=== PATIENT | male | born 1965 | race Caucasian/White ===

== ENCOUNTER 2019-11-22 10:52 | Observation (INO) | payer BC, SELFPAY ==
[2019-11-22] VITALS (56 sets, daily range): BP systolic 121–142; BP diastolic 59–83; PULSE 78–108; RESP 12–41; TEMP 37–37.3; O2SAT 90–100; BMI 40.7
--- NOTE | 2019-11-22 11:04 | ED_ITS ---
Entered by Sweetie Muller, acting as scribe for Magno Rosario DO Nov 22, 2019 10:52 HPI - Chest Pain General: Chief Complaint: Chest Pain Stated Complaint: Chest pain Time Seen by Provider: 11/22/19 11:04 Source: patient Mode of arrival: ambulatory Limitations: no limitations History of Present Illness: HPI narrative: 54 yo Male presents to ED with complaint of chest pain. Pt states the last time he had stents placed was 2 years ago. Pt states that he has had a cough for about a month. Pt states that he has had swelling in his legs and feet. MD complaint: chest pain Pertinent past history: prior [place] Onset (ago): day(s) (yesterday) Timing of current episode: constant and still present Prior episodes: Yes Onset: during rest Pain location: left chest Pain radiation: left arm Pain scale (0-10): 8 Quality: tightness and other (stabbing) Relieving factors: nitroglycerin Exacerbating factors: other (cough) Associated symptoms: Reports dyspnea and nausea; Deny abdominal pain, diaphoresis, fever(s), palpitations or vomiting Risk Factors: Coronary artery disease risk factors: smoking history Review of Systems General: Reports: 10 or more systems reviewed and unremarkable except in HPI and below Const: Denies: fever, chills, body aches or diaphoresis Eyes: Denies: change in vision, blurry vision or blind spots ENMT: Denies: throat pain, enlarged tonsils, painful swallowing, hoarseness or mouth pain Card: Reports: chest pain, swelling of feet/ankles, shortness of breath on exertion and shortness of breath when lying down; Denies: palpitations or irregular heart rhythm Resp: Reports: shortness of breath and non-productive cough; Denies: productive cough GI: Reports: nausea; Denies: abdominal pain or vomiting : Denies: flank pain, difficulty urinating, painful urination, urinary frequency or urinary urgency Musc: Denies: neck pain, back pain, extremity pain or extremity swelling Skin/Breast: Denies: rash, itching or redness Neuro: Denies: headache, numbness in extremities or weakness in extremities Endo: Denies: excessive urination, excessive thirst or tired all the time Mateusz/Lymph: Denies: easy bruising or easy bleeding PFSH ED PFSH: Statuses (acute, chronic, etc) shown below reflect problem list status as previously entered and may not be historically accurate Medical History Angina pectoris (Acute) CAD (coronary artery disease) (Acute) CHF (congestive heart failure) (Acute) Hiatal hernia (Acute) History of left heart catheterization (Acute) HTN (hypertension) (Acute) Myocardial infarction (Acute) Surgical History History of heart artery stent (Acute) Social History Smoking and tobacco status: current every day smoker Physical Exam Const: COMMON NORMALS: no apparent distress, average body habitus, oriented x3 , no limitations, healthy appearing, alert and well nourished HENMT: COMMON NORMALS: normocephalic, head/scalp atraumatic, hearing grossly normal bilaterally, external ears normal, EAC's normal, TM's normal bilaterally, external nose normal, nasal mucous membranes and turbinates normal, moist oral mucous membranes, oropharynx normal, dentition normal and gingiva normal HEAD & SCALP: normocephalic and atraumatic NOSE: external nose normal and nasal mucous membranes and turbinates normal EXTERNAL EAR: Yes external ears normal EXTERNAL AUDITORY CANAL: EAC's normal TYMPANIC MEMBRANE: TM's normal bilaterally Eye: COMMON NORMALS: PERRL, EOMs intact bilaterally, conjunctivae normal, no scleral icterus, no papilledema, normal visual castaneda by confrontation and fundi normal bilaterally CONJUNCTIVA: Yes conjunctivae normal PUPIL: Yes PERRL DIRECT OPHTHALMOSCOPY: Yes no papilledema and Yes fundi normal bilaterally Neck/C-Spine: COMMON NORMALS: full ROM, no lymphadenopathy, supple, no meningeal signs, no JVD, thyroid normal and no carotid bruits THYROID: thyroid normal Chest: COMMONS NORMALS: inspection of chest normal and palpation of chest normal Resp: COMMON NORMALS: normal respiratory effort, no retractions, no use of accessory muscles, clear to auscultation bilaterally and percussion normal AUSCULTATION: clear to auscultation bilaterally PERCUSSION: percussion normal Cardio: COMMON NORMALS: no JVD, regular rate, regular rhythm, S1 normal heart sound, S2 normal heart sound, no gallops, no clicks, no murmurs, no rub and peripheral pulses 2+ throughout RATE: regular rate RHYTHM: regular rhythm HEART SOUNDS: S1 normal and S2 normal PERIPHERAL PULSES: pulses 2+ throughout GI: COMMON NORMALS: normal to inspection, nondistended, normoactive bowel sounds, soft to palpation, non-tender, no hepatosplenomegaly, no masses and no bruits PALPATION: Yes soft and Yes no hepatosplenomegaly : COMMON NORMALS: Yes no CVA tenderness BLADDER/KIDNEY EXAM: Yes no CVA tenderness Back/Pelvis: COMMON NORMALS: no CVA tenderness, thoracic and lumbar spine normal to inspection, no thoracic nor lumbar tenderness, thoraco-lumbar ROM normal and straight leg raise negative bilaterally Extremity: COMMON NORMALS: normal to inspection, full ROM, normal capillary refill, no joint enlargement, no clubbing, cyanosis or edema, no calf tenderness and no pedal edema Neuro: COMMON NORMALS: oriented x3 SENSORIUM/ORIENTATION: Yes alert MENINGEAL SIGNS: Yes no meningeal signs Skin: COMMON NORMALS: no rashes or lesions noted, no wounds, skin turgor normal, no jaundice, no petechiae and no mottling GENERAL SKIN EXAM: no rashes or lesions noted and turgor normal Course Vital Signs: Vital signs: Vital Signs Pulse Rate 79 11/22/19 13:40 Respiratory Rate 23 H 11/22/19 13:40 Blood Pressure 132/83 11/22/19 13:40 Pulse Oximetry 94 11/22/19 13:40 MDM - Chest Pain Lab Data: Labs: Lab Results 11/22/19 11/22/19 11/22/19 Range/Units 11:30 11:30 11:30 WBC 9.5 (4.0-10.0) 10^3/ uL RBC 4.81 (4.1-5.3) 10^6/u L Hgb 13.2 (11.7-16.6) g/dL Hct 40.7 L (42.0-52.0) % MCV 84.6 (80-94) fL MCH 27.4 L (28.0-34.0) pg MCHC 32.4 (30.0-36.0) g/dL RDW 13.4 (12.1-15.1) % Plt Count 240 (130-400) 10^3/c mm MPV 10.3 (7.4-10.4) fL Neut % (Auto) 70.8 % Lymph % (Auto) 17.9 % [place] % (Auto) 8.2 % Eos % (Auto) 2.4 % Baso % (Auto) 0.4 % Neut # (Auto) 6.7 (1.8-7.7) 10^3/u L Lymph # (Auto) 1.7 (0.8-4.8) 10^3/u L [place] # (Auto) 0.8 (0.2-0.9) 10^3/u L Eos # (Auto) 0.2 (0.0-0.8) 10^3/u L Baso # (Auto) 0.0 (0.0-0.1) 10^3/u L Nucleated RBC % (a uto) 0 % Nucleated RBCs # 0.0 /100WBC Sodium 133 L (136-145) mmol/L Potassium 3.9 (3.5-5.1) mmol/L Chloride 94 L (98-107) mmol/L Carbon Dioxide 27 (22-29) mmol/L Anion Gap 15.9 (5-19) BUN 12 (6-20) mg/dL Creatinine 1.1 (0.7-1.2) mg/dL GFR Calculation 69.2 L (90-130) mL/min Glucose 138 H (74-109) mg/dL Calcium 10.1 H (8.6-10.0) mg/Dl Total Bilirubin 0.4 (0.15-1.2) mg/dL AST 18 (0-40) U/L ALT 26 (0-41) U/L Alkaline Phosphata se 81 (40-130) IU/L Troponin T Baselin e 8 (0-15) ng/mL Troponin T 120 Min wrangell (0-15) ng/mL Delta Troponin T (0-10) ABS# NT-Pro-B Natriuret Pep 5 (0-125) pg/mL Total Protein 7.6 (6.6-8.7) g/dL Albumin 4.1 (3.5-5.2) g/dL Globulin 3.5 (1.3-4.6) g/dL 11/22/19 Range/Units 13:32 WBC (4.0-10.0) 10^3/ uL RBC (4.1-5.3) 10^6/u L Hgb (11.7-16.6) g/dL Hct (42.0-52.0) % MCV (80-94) fL MCH (28.0-34.0) pg MCHC (30.0-36.0) g/dL RDW (12.1-15.1) % Plt Count (130-400) 10^3/c mm MPV (7.4-10.4) fL Neut % (Auto) % Lymph % (Auto) % [place] % (Auto) % Eos % (Auto) % Baso % (Auto) % Neut # (Auto) (1.8-7.7) 10^3/u L Lymph # (Auto) (0.8-4.8) 10^3/u L [place] # (Auto) (0.2-0.9) 10^3/u L Eos # (Auto) (0.0-0.8) 10^3/u L Baso # (Auto) (0.0-0.1) 10^3/u L Nucleated RBC % (a uto) % Nucleated RBCs # /100WBC Sodium (136-145) mmol/L Potassium (3.5-5.1) mmol/L Chloride (98-107) mmol/L Carbon Dioxide (22-29) mmol/L Anion Gap (5-19) BUN (6-20) mg/dL Creatinine (0.7-1.2) mg/dL GFR Calculation (90-130) mL/min Glucose (74-109) mg/dL Calcium (8.6-10.0) mg/Dl Total Bilirubin (0.15-1.2) mg/dL AST (0-40) U/L ALT (0-41) U/L Alkaline Phosphata se (40-130) IU/L Troponin T Baselin e (0-15) ng/mL Troponin T 120 Min wrangell 9.73 (0-15) ng/mL Delta Troponin T 1.73 (0-10) ABS# NT-Pro-B Natriuret Pep (0-125) pg/mL Total Protein (6.6-8.7) g/dL Albumin (3.5-5.2) g/dL Globulin (1.3-4.6) g/dL Imaging Data^: CXR: Radiologist's impression: [address] [address] XRay Report Signed Patient: Fransico Osborn #: [id number] : 1965Acct#:[id number] Age/Sex: 54 / MADM Date: 11/22/19 Loc: ERRoom/Bed: Attending Dr: Ordering Provider/Ordering MD: Magno Rosario DO Date of Service: 11/22/19 Procedure(s): XR chest 1V portable [id number] Accession Number(s): [id number] Report Number: [id number] PROCEDURE INFORMATION: Exam: XR Chest, 1 View Exam date and time: 11/22/2019 11:34 AM Age: 54 years old Clinical indication: Left-sided chest pain; Additional info: Angina TECHNIQUE: Imaging protocol: XR of the chest Views: 1 view. COMPARISON: CR Chest 1 [place] [id number] 03/28/2019 9:42 AM FINDINGS: Lungs: No consolidation. Small likely calcified granuloma within the right upper lung is noted. Pleural space: No pleural effusion. No pneumothorax. Heart/Mediastinum: Unremarkable. No cardiomegaly. Bones/joints: Unremarkable for technique. XR/XR chest 1V portable [id number] IMPRESSION: No acute findings. Dictated By:Wilder Marshall MD Signed By:Wilder Marshall MDSigned Date/Time:11/22/19 1256 DD/ 1255 Discharge Plan Discharge Prescriptions: No Action bumetanide 2 mg Tablet 2 mg PO BID RF: 0 Plavix 75 mg Tablet 75 mg PO DAILY RF: 0 spironolactone 25 mg Tablet 25 mg PO DAILY RF: 0 MagOx 400 mg (241.3 mg magnesium) Tablet 400 mg PO DAILY RF: 0 ranitidine HCl 300 mg Capsule 300 mg PO DAILY RF: 0 Nitrostat 0.4 mg Tablet, Sublingual 0.4 mg SUBLINGUAL Q5M PRN (Reason: Chest Pain) RF: 0 aspirin 81 mg Tablet,Chewable 81 mg PO DAILY RF: 0 lisinopril 2.5 mg Tablet 2.5 mg PO DAILY RF: 0 Crestor 40 mg Tablet 40 mg PO BEDTIME RF: 0 loratadine 10 mg Capsule 10 mg PO DAILY RF: 0 potassium chloride 20 mEq Tablet Extended Release 40 meq PO BID RF: 0 Coding Level of Care Code ED Library Sales Consultant for Chg Fwd Exam Problem Focused The documentation recorded by the Renzo marques Carmen, accurately reflects the service I personally performed and the decisions made by , Magno Rosario, DO Nov 22, 2019 10:52
--- NOTE | 2019-11-22 11:32 | XRR_ITS ---
PROCEDURE INFORMATION: Exam: XR Chest, 1 View Exam date and time: 11/22/2019 11:34 AM Age: 54 years old Clinical indication: Left-sided chest pain; Additional info: Angina TECHNIQUE: Imaging protocol: XR of the chest Views: 1 view. COMPARISON: CR Chest 1 [place] [id number] 03/28/2019 9:42 AM FINDINGS: Lungs: No consolidation. Small likely calcified granuloma within the right upper lung is noted. Pleural space: No pleural effusion. No pneumothorax. Heart/Mediastinum: Unremarkable. No cardiomegaly. Bones/joints: Unremarkable for technique. XR/XR chest 1V portable [id number] IMPRESSION: No acute findings.
--- NOTE | 2019-11-22 11:32 | ECG_ITS ---
Measurements Intervals [place] Rate: 85 P: 48 CT: 166 QRS: 5 QRSD: 96 T: 57 QT: 365 QTc: 436 SINUS RHYTHM Compared to ECG 06/20/2019 21:40:42 No significant changes Electronically Signed On 11-23-2019 17:18:11 SPA MANAGER by Fransico Bueno M.D. [email or web address]
[2019-11-22] MEDS: ondansetron 2 mg/ML SDV 2 mL 4 MG IVP (11:47)
[2019-11-22] MEDS: morphine 4 mg/mL SDV 1 mL IVP (11:47)
[2019-11-22 11:50] LABS: Basophils % 0.4 %; Eosinophils # 0.2 10^3/uL (0.0-0.8); Eosinophils % 2.4 %; Hematocrit 40.7 % (42.0-52.0); Hemoglobin 13.2 g/dL (11.7-16.6); Lymphocytes # 1.7 10^3/uL (0.8-4.8); Lymphocytes % 17.9 %; Mean Corpuscular HGB Conc 32.4 g/dL (30.0-36.0); Mean Corpuscular Hemoglobin 27.4 pg (28.0-34.0); Mean Corpuscular Volume 84.6 fL (80-94); Mean Platelet Volume 10.3 fL (7.4-10.4); Monocytes # 0.8 10^3/uL (0.2-0.9); Monocytes % 8.2 %; Neutrophils # 6.7 10^3/uL (1.8-7.7); Neutrophils % 70.8 %; Nucleated Red Blood Cells % 0 %; Platelet Count 240 10^3/cmm (130-400); Red Blood Count 4.81 10^6/uL (4.1-5.3); Red Cell Distribution Width 13.4 % (12.1-15.1); White Blood Count 9.5 10^3/uL (4.0-10.0)
[2019-11-22 12:23] LABS: Alanine Aminotransferase 26 U/L (0-41); Albumin Level 4.1 g/dL (3.5-5.2); Alkaline Phosphatase 81 IU/L (40-130); Anion Gap 15.9 (5-19); Aspartate Amino Transferase 18 U/L (0-40); Blood Urea Nitrogen 12 mg/dL (6-20); Calcium 10.1 mg/Dl (8.6-10.0); Carbon Dioxide 27 mmol/L (22-29); Chloride 94 mmol/L (98-107); Globulin 3.5 g/dL (1.3-4.6); Glomerular Filtration Rate 69.2 mL/min (90-130); Glucose 138 mg/dL (74-109); NT Pro B Type Natriuretic Pept 5 pg/mL (0-125); Potassium 3.9 mmol/L (3.5-5.1); Sodium 133 mmol/L (136-145); Total Bilirubin 0.4 mg/dL (0.15-1.2); Total Protein 7.6 g/dL (6.6-8.7); Troponin(5th) Baseline 8 ng/mL (0-15)
--- NOTE | 2019-11-22 13:32 | ECG_ITS ---
Measurements Intervals [place] Rate: 82 P: 44 ND: 162 QRS: 4 QRSD: 97 T: 44 QT: 360 QTc: 421 SINUS RHYTHM Compared to ECG 06/20/2019 21:40:42 No significant changes Electronically Signed On 11-23-2019 17:26:22 POLICE STENOGRAPHER by Fransico Bueno M.D. [id number]
[2019-11-22 13:55] LABS: Troponin 5 2HR 9.73 ng/mL (0-15); Troponin 5 2HR Delta 1.73 ABS# (0-10)
--- NOTE | 2019-11-22 14:46 | CTR_ITS ---
PROCEDURE INFORMATION: Exam: CT Angiography Chest With Contrast Exam date and time: 11/22/2019 2:58 PM Age: 54 years old Clinical indication: Dyspnea TECHNIQUE: Imaging protocol: Computed tomographic angiography of the chest with intravenous contrast. 3D rendering: MIP and/or 3D reconstructed images were created by the technologist. Total DLP: 2249.64 mGy-cm Radiation optimization: All CT scans at this facility use at least one of these dose optimization techniques: automated exposure control; mA and/or kV adjustment per patient size (includes targeted exams where dose is matched to clinical indication); or iterative reconstruction. Contrast material: OMNIPAQUE 350; Contrast volume: 95 ml; Contrast route: IV; COMPARISON: CR (CHEST, ) 11/22/2019 11:46 AM FINDINGS: Pulmonary arteries: There are a few small filling defects within the segmental pulmonary arteries bilaterally. There are no large filling defects within the main or lobar pulmonary arteries. Great vessels off aortic arch: Atherosclerotic calcifications are pesent within the aorta, branch and coronary vessels. Aorta: No aortic aneurysm. Lungs: Calcified granulomas within the right upper and right lower lobes are noted. Pleural space: No pneumothorax. No pleural effusion. Heart: No cardiomegaly. No pericardial effusion. Mediastinum: There is a small hiatal hernia. Spleen: Splenic calcifications are noted. Adrenals: There is nonspecific nodular thickening of the left adrenal gland. Lymph nodes: Partially calcified mediastinal and perihilar lymph nodes are noted. Bones/joints: There are no acute osseous findings. Soft tissues: There is mild bilateral gynecomastia. CT/CT angio chest PE protcl [id number] IMPRESSION: 1. Scattered filling defects within the segmental pulmonary arteries bilaterally consistent with acute pulmonary emboli. There are no large filling defects within the main or lobar pulmonary arteries. There is no CT evidence of right heart strain. 2. Findings which can be seen with prior granulomatous organism exposure. Radiation Dose CTDIVOL = (mGy): DLP = 2249.64 (mGy-cm)
[2019-11-22] MEDS: iohexol 350 mg/mL 100 mL Btl IV (14:59)
--- NOTE | 2019-11-22 15:45 | PC.NURSE ---
Only administered 2mg of morphine out of 4mg ordered per patient request. Wasted remaining 2mg with Yoanna Juarez RN
--- NOTE | 2019-11-22 16:18 | P.HP_ITS ---
Providers/Chief Complaint Admitting Physician: Arpit Gomez Primary Care Provider: Juma Gupta DO Chief Complaint: Chest pain History of Present Illness Fransico Osborn is a 54 year old male with history of coronary disease, status post stenting 2 years ago, with unremarkable stress test 1 year ago, HTN, GERD, chronic congestive heart failure presented to emergency department complaining of chest pain episodes over the last several days. He reports chronic cough ove r the past at least 1 month. Reports that the pain is worse with inspiration, deep breaths, and cough. Also worse on palpation of the left side of the chest. He does say that he took 6 nitroglycerin yesterday and got some relief, otherwise was kept up at night and could not sleep due to pain between 7:30 PM until around 1:30 in the morning. In ER he is without sign of infection, with unremarkable chest x-ray, with sinus rhythm on EKG, with normal baseline troponin. 2-hour troponin and delta also normal. Review of Systems Const: Denies: fever, chills, body aches or malaise Eyes: Denies: change in vision or eye redness ENMT: Denies: throat pain, oral sores/lesions or ear pain Card: Reports: chest pain; Denies: pre-syncope or shortness of breath on exertion Resp: Reports: non-productive cough (Occasional clear sputum, for close to a month); Denies: shortness of breath, change in phlegm color or coughing up blood GI: Reports: diarrhea (1 episode last week, resolved); Denies: abdominal pain, nausea, vomiting, constipation, blood in stool or black tarry stool : Denies: flank pain, difficulty urinating, urinary frequency or blood in urine Musc: Denies: back pain, joint swelling or redness Skin/Breast: Denies: rash, sores or new lesion Neuro: Denies: headache, numbness in extremities, weakness in extremities, dizziness, confusion or seizure-like activity Endo: Denies: excessive urination or excessive thirst Mateusz/Lymph: Denies: easy bleeding or purpura All/Imm: Denies: hives, throat swelling or tongue swelling Medications/Allergies Home Medications Medication Instructions Recorded Confirmed Last Taken Type aspirin 81 mg PO DAILY 11/22/19 11/22/19 11/21/19 History bumetanide 2 mg PO BID 11/22/19 11/22/19 11/21/19 History clopidogrel [Plavix] 75 mg PO DAILY 11/22/19 11/22/19 11/21/19 History lisinopril 2.5 mg PO DAILY 11/22/19 11/22/19 11/21/19 History loratadine 10 mg PO DAILY 11/22/19 11/22/19 11/21/19 History magnesium oxide [MagOx] 400 mg PO DAILY 11/22/19 11/22/19 11/21/19 History nitroglycerin [Nitrostat] 0.4 mg SUBLINGUAL Q5M PRN 11/22/19 11/22/19 11/21/19 History potassium chloride 40 meq PO BID 11/22/19 11/22/19 11/21/19 History ranitidine HCl 300 mg PO DAILY 11/22/19 11/22/19 11/21/19 History rosuvastatin [Crestor] 40 mg PO BEDTIME 11/22/19 11/22/19 11/21/19 History spironolactone 25 mg PO DAILY 11/22/19 11/22/19 11/21/19 History Allergies Allergy/AdvReac Type Severity Reaction Status Date / Time No Known Allergies Allergy Verified 11/22/19 10:58 PFSH Acute PFSH: Statuses (acute, chronic, etc) shown below reflect problem list status as previously entered and may not be historically accurate Medical History (Updated 11/22/19 @ 16:31 by Arpit Gomez MD) Angina pectoris (Acute) CAD (coronary artery disease) (Acute) CHF (congestive heart failure) (Acute) Hiatal hernia (Acute) History of left heart catheterization (Acute) HTN (hypertension) (Acute) Myocardial infarction (Acute) Penetrating head injury (Acute) Pulmonary emboli (Acute) Surgical History (Updated 11/22/19 @ 16:29 by Arpit Gomez MD) History of heart artery stent (Acute) S/P neurological surgery (Acute) Family History Father Heart disease Alzheimer's dementia Social History (Updated 11/22/19 @ 16:31 by Arpit Gomez MD) Smoking and tobacco status: current every day smoker cigarettes Packs smoked per day: 1 Alcohol intake: never Substance/Drug Use: never Lives independently: Yes Household members: significant other Marital status: Life Partner Current occupational status: employed Vitals/I&O/Wt Last Vital Signs Pulse 79 11/22/19 15:09 Resp 20 H 11/22/19 15:09 BP 132/83 11/22/19 15:09 Pulse Ox 98 11/22/19 15:09 Weight last 48 hrs Weight 117.934 kg Physical Exam Const: COMMON NORMALS: no apparent distress and oriented x3 HENMT: COMMON NORMALS: oropharynx normal Neck/C-Spine: COMMON NORMALS: no JVD Resp: COMMON NORMALS: normal respiratory effort and clear to auscultation bilaterally AUSCULTATION: clear to auscultation bilaterally Cardio: COMMON NORMALS: no JVD, regular rhythm, S1 normal heart sound, S2 normal heart sound and no murmurs RHYTHM: regular rhythm HEART SOUNDS: S1 normal and S2 normal GI: COMMON NORMALS: normal to inspection, nondistended, normoactive bowel sounds, soft to palpation and non-tender PALPATION: Yes soft Extremity: COMMON NORMALS: no joint enlargement and no pedal edema Neuro: COMMON NORMALS: oriented x3 and moves all extremities Skin: COMMON NORMALS: no rashes or lesions noted GENERAL SKIN EXAM: no rashes or lesions noted Data : 11/22/19 11:30 11/22/19 11:30 A&P Assessment and plan (1) Pulmonary emboli: CTA was requested with finding of bilateral PE. She is hemodynamically stable, on CTA no sign of RV strain, will assess with TTE. Start therapeutic Lovenox. Status: Acute Code(s): I26.99 - Other pulmonary embolism without acute cor pulmonale (2) Chest pain: Multifactorial secondary to PE, cough for about a month, musculoskeletal component triggered on palpation. At this time cardiac pain is not suspected given it has been ongoing, however, without any EKG changes or any troponin elevation at all. Status: Acute Code(s): R07.9 - Chest pain, unspecified Additional A&P Information Chronic cough: For close to about a month. It appears this is secondary to PE, which is possibly recurrent/ongoing issue. Cough is mostly dry, sometimes with clear sputum. He is a current smoker, and once he is out of acute condition PFT may be considered as well to exclude component of chronic bronchitis. Currently there is no wheezing, with good air entry, without significant sputum, and I am not suspecting a COPD exacerbation at this time. Current smoker: 1 pack/day. Discussed cessation with him while discussing coronary disease, risk of chronic lung disease, altogether over 3 minutes. He notes that he has tried to quit, several times, however, has not been successful. Continue to encourage cessation. Will provide nicotine replacement for cravings. CAD Chronic CHF: Currently not in exacerbation HTN Attestations Medical Necessity Statement*: Place in observation. Coding Level of Care Code Acute Plastics Engineering Teacher for Effie Ash Diagnoses Pulmonary emboli I26.99 Chest pain R07.9
[2019-11-22] MEDS: enoxaparin 120 mg/0.8 mL Syringe SUBCUT (17:28)
[2019-11-22] MEDS: bumetanide 1 mg Tablet 2 MG PO (17:28)
--- NOTE | 2019-11-22 17:32 | ECG_ITS ---
Measurements Intervals [place] Rate: 78 P: 53 [place]: 178 QRS: 13 QRSD: 93 T: 48 QT: 375 QTc: 429 SINUS RHYTHM Compared to ECG 06/20/2019 21:40:42 No significant changes Electronically Signed On 11-23-2019 17:26:16 LIBERAL ARTS AND HUMANITIES CHAIR by Fransico Bueno M.D. [id number]
[2019-11-22 18:10] LABS: Troponin 5 6HR 10.19 ng/L (0-15); Troponin 5 6HR Delta 2.19 ng/L (0-12)
[2019-11-22] MEDS: atorvastatin 40 mg Tablet 80 MG PO (21:01)
[2019-11-23 04:00] VITALS: BP 146/83; PULSE 86; RESP 18; TEMP 36.7; O2SAT 93
[2019-11-23] MEDS: enoxaparin 120 mg/0.8 mL Syringe SUBCUT (04:17)
[2019-11-23 06:03] LABS: Basophils # 0.1 10^3/uL (0.0-0.1); Basophils % 0.5 %; Eosinophils # 0.1 10^3/uL (0.0-0.8); Eosinophils % 1.5 %; Hematocrit 38.4 % (42.0-52.0); Hemoglobin 12.5 g/dL (11.7-16.6); Lymphocytes # 1.9 10^3/uL (0.8-4.8); Lymphocytes % 19.6 %; Mean Corpuscular HGB Conc 32.6 g/dL (30.0-36.0); Mean Corpuscular Hemoglobin 27.1 pg (28.0-34.0); Mean Corpuscular Volume 83.1 fL (80-94); Mean Platelet Volume 10.4 fL (7.4-10.4); Monocytes # 0.9 10^3/uL (0.2-0.9); Monocytes % 8.9 %; Neutrophils # 6.6 10^3/uL (1.8-7.7); Neutrophils % 69.1 %; Nucleated Red Blood Cells % 0 %; Platelet Count 217 10^3/cmm (130-400); Red Blood Count 4.62 10^6/uL (4.1-5.3); Red Cell Distribution Width 13.4 % (12.1-15.1); White Blood Count 9.6 10^3/uL (4.0-10.0)
[2019-11-23 06:24] LABS: Blood Urea Nitrogen 17 mg/dL (6-20); Calcium 9.8 mg/Dl (8.6-10.0); Carbon Dioxide 28 mmol/L (22-29); Chloride 95 mmol/L (98-107); Glomerular Filtration Rate 77.3 mL/min (90-130); Glucose 122 mg/dL (74-109); Sodium 135 mmol/L (136-145)
[2019-11-23 07:30] VITALS: BP 122/73; PULSE 88; RESP 18; TEMP 36.7; O2SAT 98
[2019-11-23] MEDS: bumetanide 1 mg Tablet 2 MG PO (09:01)
[2019-11-23] MEDS: spironolactone 25 mg Tablet PO (09:01)
[2019-11-23] MEDS: clopidogrel 75 mg Tablet PO (09:01)
[2019-11-23] MEDS: aspirin 81 mg EC Tablet PO (09:01)
[2019-11-23] MEDS: magnesium oxide 400 mg tablet PO (09:01)
[2019-11-23] MEDS: lisinopril 2.5 mg Tablet PO (09:01)
--- NOTE | 2019-11-23 10:43 | PM.DCS ---
Discharge Providers Date of Admission: 11/22/19 14:47 Date of Discharge: 11/23/19 Attending Provider at Admission: Arpit Gomez Attending Provider at Discharge: Arpit Gomez Primary Care Provider: Juma Gupta DO Diagnoses at Discharge Discharge Diagnosis (1) Pulmonary emboli: Status: Acute (2) Chest pain: Status: Acute Reason for Visit Reason for Visit: Reason For Visit: Chest pain Hospital Course Hospital Course: 54-year-old gentleman, current smoker, with history of CAD, status post coronary artery stenting 2 years ago, with unremarkable stress test 1 year ago, HTN, GERD, chronic congestive heart failure was evaluated due to episodes of left-sided/left mid chest pleuritic chest pain, with cough ongoing for the past 1 month, with sharp episodes of stabbing chest pain which are triggered by deep breaths, cough, movement, as well as palpation on the left side of the chest. Troponin and EKG series were assessed due to history of coronary disease, but completely unremarkable with normal troponin and delta, and NSR on EKG. No pneumonia was noted on chest x-ray. Given pleuritic nature of the pain, chronic cough, chest pain was assessed by CT with finding of bilateral PE for which was started on Lovenox and will be transitioned to Eliquis. Smoking cessation was discussed with him please continue to encourage. He does have some mild wheezing on exam, and with his chronic smoking history cannot exclude concomitant underlying COPD. Once he is out of acute phase of illness, please refer him for pulmonary function testing. Physical Exam Const: COMMON NORMALS: no apparent distress and oriented x3 HENMT: COMMON NORMALS: oropharynx normal Neck/C-Spine: COMMON NORMALS: no JVD Resp: COMMON NORMALS: normal respiratory effort and clear to auscultation bilaterally AUSCULTATION: clear to auscultation bilaterally Cardio: COMMON NORMALS: no JVD, regular rhythm, S1 normal heart sound, S2 normal heart sound and no murmurs RHYTHM: regular rhythm HEART SOUNDS: S1 normal and S2 normal GI: COMMON NORMALS: normal to inspection, nondistended, normoactive bowel sounds, soft to palpation and non-tender PALPATION: Yes soft Extremity: COMMON NORMALS: no joint enlargement and no pedal edema Neuro: COMMON NORMALS: oriented x3 and moves all extremities Skin: COMMON NORMALS: no rashes or lesions noted GENERAL SKIN EXAM: no rashes or lesions noted Discharge Data Data Completed and Pending: Completed Studies During Hospitalization Category Date Time Status CT angio chest PE protcl [id number] Urge nt Cat Scan 11/22/19 14:46 Completed XR chest 1V jaycee ble [id number] Stat Exams 11/22/19 11:32 Completed Pending at discharge Category Date Time Status CV echo complete* [id number] Routine Ultrasound 11/23/19 06:00 Ordered Labs from last 24 hours 11/23/19 11/23/19 11/22/19 05:36 05:36 17:48 WBC 9.6 RBC 4.62 Hgb 12.5 Hct 38.4 L MCV 83.1 MCH 27.1 L MCHC 32.6 RDW 13.4 Plt Count 217 MPV 10.4 Neut % (Auto) 69.1 Lymph % (Auto) 19.6 [place] % (Auto) 8.9 Eos % (Auto) 1.5 Baso % (Auto) 0.5 Neut # (Auto) 6.6 Lymph # (Auto) 1.9 [place] # (Auto) 0.9 Eos # (Auto) 0.1 Baso # (Auto) 0.1 Nucleated RBC % (a uto) 0 Nucleated RBCs # 0.0 Sodium 135 L Potassium 4.0 Chloride 95 L Carbon Dioxide 28 Anion Gap 16.0 BUN 17 Creatinine 1.0 GFR Calculation 77.3 L Glucose 122 H Calcium 9.8 Total Bilirubin AST ALT Alkaline Phosphata se Troponin I 6 Hour 10.19 Troponin I Hi Sens Del 2.19 Troponin T Baselin e Troponin T 120 Min [place] Troponin T NT-Pro-B Natriuret Pep Total Protein Albumin Globulin 11/22/19 11/22/19 11/22/19 13:32 11:30 11:30 WBC RBC Hgb Hct MCV MCH MCHC RDW Plt Count MPV Neut % (Auto) Lymph % (Auto) [place] % (Auto) Eos % (Auto) Baso % (Auto) Neut # (Auto) Lymph # (Auto) [place] # (Auto) Eos # (Auto) Baso # (Auto) Nucleated RBC % (a uto) Nucleated RBCs # Sodium 133 L Potassium 3.9 Chloride 94 L Carbon Dioxide 27 Anion Gap 15.9 BUN 12 Creatinine 1.1 GFR Calculation 69.2 L Glucose 138 H Calcium 10.1 H Total Bilirubin 0.4 AST 18 ALT 26 Alkaline Phosphata se 81 Troponin I 6 Hour Troponin I Hi Sens Del Troponin T Baselin e 8 Troponin T 120 Min [place] 9.73 Delta Troponin T 1.73 NT-Pro-B Natriuret Pep 5 Total Protein 7.6 Albumin 4.1 Globulin 3.5 11/22/19 11:30 WBC 9.5 RBC 4.81 Hgb 13.2 Hct 40.7 L MCV 84.6 MCH 27.4 L MCHC 32.4 RDW 13.4 Plt Count 240 MPV 10.3 Neut % (Auto) 70.8 Lymph % (Auto) 17.9 [place] % (Auto) 8.2 Eos % (Auto) 2.4 Baso % (Auto) 0.4 Neut # (Auto) 6.7 Lymph # (Auto) 1.7 [place] # (Auto) 0.8 Eos # (Auto) 0.2 Baso # (Auto) 0.0 Nucleated RBC % (a uto) 0 Nucleated RBCs # 0.0 Sodium Potassium Chloride Carbon Dioxide Anion Gap BUN Creatinine GFR Calculation Glucose Calcium Total Bilirubin AST ALT Alkaline Phosphata se Troponin I 6 Hour Troponin I Hi Sens Del Troponin T Baselin e Troponin T 120 Min [place] Troponin T NT-Pro-B Natriuret Pep Total Protein Albumin Globulin Vitals: Last Vital Signs Temp 98.0 F 11/23/19 07:30 Pulse 88 11/23/19 07:30 Resp 18 11/23/19 07:30 BP 122/73 11/23/19 07:30 Pulse Ox 98 11/23/19 07:30 Discharge Plan Discharge Patient Disposition: Home, Self-Care Condition: Fair Prescriptions: New nicotine 21 mg/24 hr patch 24 hour 1 patch TRANSDERMA DAILY Qty: 30 RF: 0 nicotine (polacrilex) 2 mg lozenge 2 mg BUCCAL Q1H PRN (Reason: nicotine cravings) Qty: 60 RF: 4 Eliquis 5 mg (74 tabs) tablets,dose pack See Rx Instructions .ROUTE .COMPLEX Qty: 74 RF: 0 Continued bumetanide 2 mg Tablet 2 mg PO BID RF: 0 spironolactone 25 mg Tablet 25 mg PO DAILY RF: 0 MagOx 400 mg (241.3 mg magnesium) Tablet 400 mg PO DAILY RF: 0 ranitidine HCl 300 mg Capsule 300 mg PO DAILY RF: 0 Nitrostat 0.4 mg Tablet, Sublingual 0.4 mg SUBLINGUAL Q5M PRN (Reason: Chest Pain) RF: 0 aspirin 81 mg Tablet,Chewable 81 mg PO DAILY RF: 0 lisinopril 2.5 mg Tablet 2.5 mg PO DAILY RF: 0 Crestor 40 mg Tablet 40 mg PO BEDTIME RF: 0 loratadine 10 mg Capsule 10 mg PO DAILY RF: 0 potassium chloride 20 mEq Tablet Extended Release 40 meq PO BID RF: 0 Discontinued Plavix 75 mg Tablet 75 mg PO DAILY RF: 0 Discharge Orders: Discharge Order (Routine); Ordered 11/23/19 Ordered By: Arpit Gomez Referrals: Quirino Chavarria MD [Physician] - 12/18/19 Juma Gupta DO [Primary Care Provider] - 4-7 days Discharge Diet: Cardiac Discharge Activity: Limit activity as instructed Activity Restrictions/Additional Instructions: Please stop smoking. Please be cautious as you are on a blood thinner medication which makes her prone to bleeding. Avoid any injury or falls. If you experience worsening shortness of breath, chest pain, coughing up large amounts of blood, or other abnormal symptoms please seek medical attention without delay. Discharge Attestations Time Spent in Discharge Care*: greater than 30 min Quality Metrics Clinical Quality Measures During this hospital stay, did patient experience: None Coding Level of Care Code Acute Firer Boiler for Effie Ash Diagnoses Pulmonary emboli I26.99 Chest pain R07.9
[2019-11-23 11:14] VITALS: BP 122/73; PULSE 88; RESP 18; TEMP 36.7; O2SAT 98
--- NOTE | 2019-11-25 22:50 | P.DS_ITS ---
Discharge Providers Date of Admission: 11/22/19 14:47 Date of Discharge: 11/25/19 Attending Provider at Admission: rApit Gomez Attending Provider at Discharge: Arpit Gomez Primary Care Provider: Juma Gupta DO Diagnoses at Discharge Discharge Diagnosis (1) Pulmonary emboli: Status: Acute (2) Chest pain: Status: Acute Reason for Visit Reason for Visit: Reason For Visit: Chest pain Hospital Course Discharge Summary: Fransico Osborn is a 54 year old male recently discharged after observation in the hospital due to PE, returned to the hospital due to progressive worsening of daytime sleepiness, falling asleep anytime he is not stimulated. Some of this was observed during last admission, however, at that time he reported that he had not slept multiple nights due to persistent cough, chest pain secondary to later identified bilateral PE. He went for an appointment with his primary care provider Dr. Gupta was referred for admission back to the hospital due to worsening of symptoms. Neurology was consulted. He had a nonfocal neurologic exam and was easily arousable. He was not encephalopathic, there were no worrisome findings for a serious neurologic condition such as encephalitis, ischiemia, or seizure. Increased somolence was thought to be related to fragmented sleep related to his recent hospitalization, lack of his typical caffeine intake, and his untreated sleep apnea which may have been worsened in the setting of his PE. Given his cardiac issues stimulant medications are a poor option. he has been provided with a referral for sleep study, but patient is unlikely to keep this appointment as he states that he is extremely claustrophobic and even if he has an abnormal study,he will be unable to wear a CPAP for this reason. Just prior to discharge this afternoon, patient started to c/o sudden onset spasmodic RUQ pain. He undwernwet CT chest/abd/pelvis which showed resolved PE, no cholelithiasis or cholecystitis, no pancreatitis and no nephrolithiasis. EKG was without any acute changes. Troponin was negative. Patient subsided with 2mg morphine. cause remains unclear but may be musculoskeletal in origin. 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 deficits Discharge Data Data Completed and Pending: Completed Studies During Hospitalization Category Date Time Status CT angio chest PE protcl [id number] Urge nt Cat Scan 11/22/19 14:46 Completed XR chest 1V jaycee ble [id number] Stat Exams 11/22/19 11:32 Completed Vitals: Last Vital Signs Temp 98.0 F 11/23/19 11:14 Pulse 88 11/23/19 11:14 Resp 18 11/23/19 11:14 BP 122/73 11/23/19 11:14 Pulse Ox 98 11/23/19 11:14 Discharge Plan Discharge Patient Disposition: Home, Self-Care Condition: Fair Prescriptions: New Eliquis 5 mg (74 tabs) tablets,dose pack See Rx Instructions .ROUTE .COMPLEX Qty: 74 RF: 0 albuterol sulfate 90 mcg/actuation HFA aerosol inhaler 1 inh INHALATION Q6H PRN (Reason: shortness of breath or wheezing) Qty: 6.7 RF: 0 Continued bumetanide 2 mg Tablet 2 mg PO BID RF: 0 spironolactone 25 mg Tablet 25 mg PO DAILY RF: 0 magnesium oxide [MagOx] 400 mg (241.3 mg magnesium) Tablet 400 mg PO DAILY RF: 0 ranitidine HCl 300 mg Capsule 300 mg PO DAILY RF: 0 nitroglycerin [Nitrostat] 0.4 mg Tablet, Sublingual 0.4 mg SUBLINGUAL Q5M PRN (Reason: Chest Pain) RF: 0 aspirin 81 mg Tablet,Chewable 81 mg PO DAILY RF: 0 lisinopril 2.5 mg Tablet 2.5 mg PO DAILY RF: 0 rosuvastatin [Crestor] 40 mg Tablet 40 mg PO BEDTIME RF: 0 potassium chloride 20 mEq Tablet Extended Release 40 meq PO BID RF: 0 Discontinued clopidogrel [Plavix] 75 mg Tablet 75 mg PO DAILY RF: 0 Discharge Orders: Discharge Order (Routine); Ordered 11/23/19 Ordered By: Arpit Gomez Referrals: Quirino Chavarria MD [Physician] - 12/18/19 (You have a Cardiology followup with Dr. Chavarria at [facility] on December 18 at 9:00am. Any questions or appointment changes, please call them at [phone]) Gupta,Juma J, DO [Primary Care Provider] - 4-7 days (You have a hospital followup with Dr. Gupta at [facility] on this coming November 26 at 11:40am. Any appointment changes or questions, please call them at [phone]) Discharge Diet: Cardiac Discharge Activity: Limit activity as instructed Patient Instructions: Apixaban (By mouth), Pulmonary Embolism (DC) Activity Restrictions/Additional Instructions: Please stop smoking. Please be cautious as you are on a blood thinner medication which makes her prone to bleeding. Avoid any injury or falls. If you experience worsening shortness of breath, chest pain, coughing up large amounts of blood, or other abnormal symptoms please seek medical attention without delay. 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
== END 2019-11-23 11:54 | disposition home or self-care (01) ==
LOC: ER 14:29 → CSU 14:50
PROVIDERS: Admitting Provider Internal Medicine; Emergency Provider Family Medicine; Family Provider Electrodiagnostic Medicine; PCP Electrodiagnostic Medicine; Visit Provider Internal Medicine
DX: I26.99 Other pulmonary embolism without acute cor pulmonale (principal); R07.9 Chest pain, unspecified; R05 Cough; F17.210 Nicotine dependence, cigarettes, uncomplicated; I25.10 Atherosclerotic heart disease of native coronary artery without angina pectoris; I11.0 Hypertensive heart disease with heart failure; I50.9 Heart failure, unspecified; Z79.82 Long term (current) use of aspirin; K21.9 Gastro-esophageal reflux disease without esophagitis; I25.2 Old myocardial infarction; Z95.5 Presence of coronary angioplasty implant and graft; Z82.49 Family history of ischemic heart disease and other diseases of the circulatory system; Z82.1 Family history of blindness and visual loss
CPT/HCPCS: 12345; 36415; 71045; 71275; 80048; 80053; 83880; 84484; 85025; 93005; 96372; 96374; 96375; 96376; 99283; 99285; G0378; J1650; J2270; J2405; Q9967

== ENCOUNTER 2019-11-24 09:22 | Observation (INO) | payer BC, SELFPAY ==
[2019-11-24] VITALS (16 sets, daily range): BP systolic 107–147; BP diastolic 53–96; PULSE 69–87; RESP 18–28; TEMP 37.1; O2SAT 92–99; BMI 42.3
--- NOTE | 2019-11-24 09:50 | ED_ITS ---
Entered by Koko Perdue, acting as scribe for Magno Rosario DO Nov 24, 2019 09:22 HPI - SOB/Dyspnea General: Chief Complaint: Shortness of Breath/Dyspnea Stated Complaint: BLOOD CLOTS Time Seen by Provider: 11/24/19 09:39 History of Present Illness: HPI Narrative: 54 yo male presents with shortness of breath. Pt was seen at Dr. Gupta's office, he sent pt here for further evaluation. Pt was recently discharged from hospital, pt had a PE. Pt states that he is having a hard time staying awake, states that when he sleeps, he is harder to wake up than normal. Pt falls asleep instantly and snores. MD elicited complaint: shortness of breath and cough Pertinent past history: PE Timing: constant Exacerbating factors: lying flat, exertion, movement and coughing Relieving factors: oxygen Known history of: PE Associated symptoms: Reports hemoptysis; Deny abdominal pain, chest pain, fever(s), nausea, palpitations, polydipsia, polyuria or vomiting Review of Systems Const: Reports: chills, fatigue and malaise; Denies: fever Eyes: Denies: change in vision, blurry vision or blind spots ENMT: Reports: hoarseness; Denies: throat pain, uvular edema, enlarged tonsils or painful swallowing Card: Denies: chest pain, palpitations, irregular heart rhythm or edema Resp: Reports: shortness of breath, productive cough and coughing up blood GI: Denies: abdominal pain, nausea, vomiting, vomiting blood or coffee grounds in vomit : Denies: flank pain, difficulty urinating, painful urination or urinary frequency Musc: Denies: joint swelling, redness, joint warmth or joint stiffness Skin/Breast: Denies: rash, itching, redness or sensitivity to light Neuro: Denies: headache or numbness in extremities Psych: Reports: sleeping more; Denies: anxiety, depression or mood swings Endo: Denies: excessive urination or excessive thirst Mateusz/Lymph: Denies: easy bruising or easy bleeding All/Imm: Denies: hives or throat swelling PFSH ED PFSH: Statuses (acute, chronic, etc) shown below reflect problem list status as previously entered and may not be historically accurate Medical History Angina pectoris (Acute) CAD (coronary artery disease) (Acute) CHF (congestive heart failure) (Acute) Hiatal hernia (Acute) History of left heart catheterization (Acute) HTN (hypertension) (Acute) Myocardial infarction (Acute) Penetrating head injury (Acute) Pulmonary emboli (Acute) Surgical History History of heart artery stent (Acute) S/P neurological surgery (Acute) Family History Father Heart disease Alzheimer's dementia Social History Smoking and tobacco status: former smoker Alcohol intake: never Lives independently: Yes Household members: significant other Marital status: Life Partner Current occupational status: employed Physical Exam Const: COMMON NORMALS: no apparent distress, average body habitus, oriented x3, no limitations, healthy appearing, alert and well nourished GENERAL APPEARANCE: lethargic NUTRITIONAL APPEARANCE: obese ORIENTATION/CONSCIOUSNESS: Yes lethargic HENMT: COMMON NORMALS: normocephalic, head/scalp atraumatic, hearing grossly normal bilaterally, external ears normal, EAC's normal, TM's normal bilaterally, external nose normal, nasal mucous membranes and turbinates normal, moist oral mucous membranes, oropharynx normal, dentition normal and gingiva normal HEAD & SCALP: normocephalic and atraumatic NOSE: external nose normal and nasal mucous membranes and turbinates normal EXTERNAL EAR: Yes external ears normal EXTERNAL AUDITORY CANAL: EAC's normal TYMPANIC MEMBRANE: TM's normal bilaterally THROAT: no uvular edema Eye: COMMON NORMALS: PERRL, EOMs intact bilaterally, conjunctivae normal, no scleral icterus, no papilledema, normal visual castaneda by confrontation and fundi normal bilaterally CONJUNCTIVA: Yes conjunctivae normal PUPIL: Yes PERRL DIRECT OPHTHALMOSCOPY: Yes no papilledema and Yes fundi normal bilaterally Neck/C-Spine: COMMON NORMALS: full ROM, no lymphadenopathy, supple, no meningeal signs, no JVD, thyroid normal and no carotid bruits THYROID: thyroid normal Chest: COMMONS NORMALS: inspection of chest normal and palpation of chest normal Resp: EFFORT & INSPECTION: No respiratory distress and Yes actively coughing AUSCULTATION: wheezes (bilateral bases) OTHER: snoring respirations Cardio: COMMON NORMALS: no JVD, regular rate, regular rhythm, S1 normal heart sound, S2 normal heart sound, no gallops, no clicks, no murmurs, no rub and peripheral pulses 2+ throughout RATE: regular rate RHYTHM: regular rhythm HEART SOUNDS: S1 normal and S2 normal PERIPHERAL PULSES: pulses 2+ throughout GI: COMMON NORMALS: normal to inspection, nondistended, normoactive bowel sounds, soft to palpation, non-tender, no hepatosplenomegaly, no masses and no bruits PALPATION: Yes soft and Yes no hepatosplenomegaly : COMMON NORMALS: Yes no CVA tenderness BLADDER/KIDNEY EXAM: Yes no CVA tenderness Back/Pelvis: COMMON NORMALS: no CVA tenderness, thoracic and lumbar spine normal to inspection, no thoracic nor lumbar tenderness, thoraco-lumbar ROM normal and straight leg raise negative bilaterally Extremity: COMMON NORMALS: normal to inspection, full ROM, normal capillary refill, no joint enlargement, no clubbing, cyanosis or edema, no calf tenderness and no pedal edema Neuro: COMMON NORMALS: oriented x3 SENSORIUM/ORIENTATION: Yes alert and Yes lethargic MENINGEAL SIGNS: Yes no meningeal signs Skin: COMMON NORMALS: no rashes or lesions noted, no wounds, skin turgor n ormal, no jaundice, no petechiae and no mottling GENERAL SKIN EXAM: no rashes or lesions noted and turgor normal Course Consultations: Time: 12:33 Consultation #2: Call out to Dr. Gomez, left a voicemail for him to call back. Vital Signs: Vital signs: Vital Signs Temperature 98.7 F 11/24/19 09:28 Pulse Rate 72 11/24/19 12:23 Respiratory Rate 18 11/24/19 09:28 Blood Pressure 127/74 11/24/19 12:23 Pulse Oximetry 96 11/24/19 12:23 MDM - SOB/Dyspnea Lab Data: Labs: Lab Results 11/24/19 11/24/19 11/24/19 Range/Units 10:07 10:07 10:07 WBC 8.7 (4.0-10.0) 10^3/ uL RBC 4.91 (4.1-5.3) 10^6/u L Hgb 13.3 (11.7-16.6) g/dL Hct 40.8 L (42.0-52.0) % MCV 83.1 (80-94) fL MCH 27.1 L (28.0-34.0) pg MCHC 32.6 (30.0-36.0) g/dL RDW 13.7 (12.1-15.1) % Plt Count 216 (130-400) 10^3/c mm MPV 9.6 (7.4-10.4) fL Neut % (Auto) 75.9 % Lymph % (Auto) 12.1 % [place] % (Auto) 10.5 % Eos % (Auto) 1.0 % Baso % (Auto) 0.2 % Neut # (Auto) 6.6 (1.8-7.7) 10^3/u L Lymph # (Auto) 1.1 (0.8-4.8) 10^3/u L [place] # (Auto) 0.9 (0.2-0.9) 10^3/u L Eos # (Auto) 0.1 (0.0-0.8) 10^3/u L Baso # (Auto) 0.0 (0.0-0.1) 10^3/u L Nucleated RBC % (a uto) 0 % Nucleated RBCs # 0.0 /100WBC Specimen Type Sample Site ABG pH (7.35-7.45) ABG pCO2 (35-45) mmHg ABG pO2 (80.0-100.0) mmH g ABG HCO3 (22-26) mmol/L ABG Base Excess (-2.0-2.0) mmol/ L Keegan Test Hematocrit (42-52) % Hgb O2 Saturation (95-100) % Carboxyhemoglobin (0.4-20.1) %THgb Methemoglobin (0.4-1.5) % Total Hemoglobin (14-18) g/dL O2 Delivery Device FiO2 % Investment Officer ID Sodium 135 L (136-145) mmol/L Potassium 4.0 (3.5-5.1) mmol/L Chloride 94 L (98-107) mmol/L Carbon Dioxide 27 (22-29) mmol/L Anion Gap 18.0 (5-19) BUN 19 (6-20) mg/dL Creatinine 1.1 (0.7-1.2) mg/dL GFR Calculation 69.2 L (90-130) mL/min Glucose 111 H (74-109) mg/dL Lactic Acid 1.3 (0.5-2.2) mmol/L Calcium 9.9 (8.6-10.0) mg/Dl Total Bilirubin 0.6 (0.15-1.2) mg/dL AST 18 (0-40) U/L ALT 26 (0-41) U/L Alkaline Phosphata se 82 (40-130) IU/L Troponin T Baselin e (0-15) ng/mL Troponin T 120 Min [place] (0-15) ng/mL Delta Troponin T (0-10) ABS# Total Protein 8.2 (6.6-8.7) g/dL Albumin 4.6 (3.5-5.2) g/dL Globulin 3.6 (1.3-4.6) g/dL 11/24/19 11/24/19 11/24/19 Range/Units 10:07 10:23 12:09 WBC (4.0-10.0) 10^3/ uL RBC (4.1-5.3) 10^6/u L Hgb (11.7-16.6) g/dL Hct (42.0-52.0) % MCV (80-94) fL MCH (28.0-34.0) pg MCHC (30.0-36.0) g/dL RDW (12.1-15.1) % Plt Count (130-400) 10^3/c mm MPV (7.4-10.4) fL Neut % (Auto) % Lymph % (Auto) % [place] % (Auto) % Eos % (Auto) % Baso % (Auto) % Neut # (Auto) (1.8-7.7) 10^3/u L Lymph # (Auto) (0.8-4.8) 10^3/u L [place] # (Auto) (0.2-0.9) 10^3/u L Eos # (Auto) (0.0-0.8) 10^3/u L Baso # (Auto) (0.0-0.1) 10^3/u L Nucleated RBC % (a uto) % Nucleated RBCs # /100WBC Specimen Type Arterial Sample Site Brachial, left ABG pH 7.43 (7.35-7.45) ABG pCO2 42.1 (35-45) mmHg ABG pO2 63.0 L (80.0-100.0) mmH g ABG HCO3 28.1 H (22-26) mmol/L ABG Base Excess 3.4 H (-2.0-2.0) mmol/ L Keegan Test Pos Hematocrit 42.5 (42-52) % Hgb O2 Saturation 90.9 L (95-100) % Carboxyhemoglobin 1.2 (0.4-20.1) %THgb Methemoglobin 0.3 L (0.4-1.5) % Total Hemoglobin 13.9 L (14-18) g/dL O2 Delivery Device Room air FiO2 21.0 % Investment Officer ID cak Sodium (136-145) mmol/L Potassium (3.5-5.1) mmol/L Chloride (98-107) mmol/L Carbon Dioxide (22-29) mmol/L Anion Gap (5-19) BUN (6-20) mg/dL Creatinine (0.7-1.2) mg/dL GFR Calculation (90-130) mL/min Glucose (74-109) mg/dL Lactic Acid (0.5-2.2) mmol/L Calcium (8.6-10.0) mg/Dl Total Bilirubin (0.15-1.2) mg/dL AST (0-40) U/L ALT (0-41) U/L Alkaline Phosphata se (40-130) IU/L Troponin T Baselin e 10 (0-15) ng/mL Troponin T 120 Min cas[place] 9.12 (0-15) ng/mL Delta Troponin T -0.88 L (0-10) ABS# Total Protein (6.6-8.7) g/dL Albumin (3.5-5.2) g/dL Globulin (1.3-4.6) g/dL Imaging Data^: CT Head: Radiologist's impression: Patient: Fransico Osborn Unit #: [id number] : 1965 Age/Sex: 54 / M ADM Date: 11/24/19 Loc: ER Room/Bed: Attending Dr: Ordering Provider/Ordering MD: Magno Rosario DO Date of Service: 11/24/19 Procedure(s): CT head wo con* [id number] Accession Number(s): [id number] Report Number: [id number] WS: [id number] CT HEAD TECHNIQUE: Noncontrast CT of the head obtained from the skullbase to the vertex. CLINICAL INFORMATION: ams COMPARISON: December 15, 2017 DLP: 832.[address] scans at [facility] use at least one of these dose optimization techniques: automated exposure control; mA and/or kV adjustment per patient size (includes targeted exams where dose is matched to clinical indication); or iterative reconstruction. FINDINGS: No evidence of intracranial hemorrhage or mass effect. Ventricular system and basal cisterns are patent. No extra-axial fluid collections. No evidence of mass or mass effect. Normal fan-white differentiation. Paranasal sinuses and mastoid air cells are well aerated. .Normal visualized soft tissues. Notified Magno Rosario DO at 11/24/2019 11:[address]/CT head wo con* [id number] IMPRESSION: 1. No evidence of intracranial hemorrhage or mass effect. 2. Normal fan-white differentiation. 3. No acute intracranial findings. Dictated By: Saad Harris MD Signed By: Saad Harris MD Signed Date/Time: 11/24/19 1102 DD/ 1057 Discharge Plan Discharge Patient Disposition: Admitted As Inpatient Clinical Impression: Altered mental status Qualifiers: Altered mental status type: somnolence Qualified Code(s): R40.0 - Somnolence Condition: Fair Referrals: Juma Gupta DO [Primary Care Provider] - Coding Level of Care Code ED Creative Technologist for Chg Fwd Exam Problem Focused The documentation recorded by the Iron marques Kialy, accurately reflects the service I personally performed and the decisions made by Abraham christianson Donald P, DO Nov 24, 2019 09:22
--- NOTE | 2019-11-24 09:56 | XR_ITS ---
WS: [id number] PORTABLE CHEST HISTORY: dyspnea COMPARISON: 11/22/2019 Lungs are clear and well expanded. No pleural effusion or pneumothorax. Cardiac size: Normal. Mediastinum/Aorta: Normal mediastinum. No osseous abnormality seen. XR/XR chest 1V portable [id number] IMPRESSION: Unremarkable portable chest.
--- NOTE | 2019-11-24 09:59 | ECG_ITS ---
Measurements Intervals [place] Rate: 81 P: 36 IL: 164 QRS: 19 QRSD: 94 T: 47 QT: 369 QTc: 431 SINUS RHYTHM Compared to ECG 11/22/2019 16:05:38 No significant changes Electronically Signed On 11-24-2019 22:02:38 ENTRY SPECIALIST by Sonny Eldridge M.D. [email or web address] f
--- NOTE | 2019-11-24 10:03 | PC.NURSE ---
pt alert and oriented but very drowsy. pt fell asleep during mid conversation with nurse
[2019-11-24 10:14] LABS: Basophils % 0.2 %; Eosinophils # 0.1 10^3/uL (0.0-0.8); Hematocrit 40.8 % (42.0-52.0); Hemoglobin 13.3 g/dL (11.7-16.6); Lymphocytes # 1.1 10^3/uL (0.8-4.8); Lymphocytes % 12.1 %; Mean Corpuscular HGB Conc 32.6 g/dL (30.0-36.0); Mean Corpuscular Hemoglobin 27.1 pg (28.0-34.0); Mean Corpuscular Volume 83.1 fL (80-94); Mean Platelet Volume 9.6 fL (7.4-10.4); Monocytes # 0.9 10^3/uL (0.2-0.9); Monocytes % 10.5 %; Neutrophils # 6.6 10^3/uL (1.8-7.7); Neutrophils % 75.9 %; Nucleated Red Blood Cells % 0 %; Platelet Count 216 10^3/cmm (130-400); Red Blood Count 4.91 10^6/uL (4.1-5.3); Red Cell Distribution Width 13.7 % (12.1-15.1); White Blood Count 8.7 10^3/uL (4.0-10.0)
--- NOTE | 2019-11-24 10:17 | CT_ITS ---
WS: [id number] CT HEAD TECHNIQUE: Noncontrast CT of the head obtained from the skullbase to the vertex. CLINICAL INFORMATION: ams COMPARISON: December 15, 2017 DLP: 832.[address] scans at [facility] use at least one of these dose optimization techniques: automat ed exposure control; mA and/or kV adjustment per patient size (includes targeted exams where dose is matched to clinical indication); or iterative reconstruction. FINDINGS: No evidence of intracranial hemorrhage or mass effect. Ventricular system and basal cisterns are jacobo nt. No extra-axial fluid collections. No evidence of mass or mass effect. Normal fan-white different iation. Paranasal sinuses and mastoid air cells are well aerated. .Normal visualized soft tissues. Notified Magno Rosario DO at 11/24/2019 11:[address]/CT head wo con* [id number] IMPRESSION: 1. No evidence of intracranial hemorrhage or mass effect. 2. Normal fan-white differentiation. 3. No acute intracranial findings.
[2019-11-24 10:28] LABS: Alanine Aminotransferase 26 U/L (0-41); Albumin Level 4.6 g/dL (3.5-5.2); Alkaline Phosphatase 82 IU/L (40-130); Aspartate Amino Transferase 18 U/L (0-40); Blood Urea Nitrogen 19 mg/dL (6-20); Calcium 9.9 mg/Dl (8.6-10.0); Carbon Dioxide 27 mmol/L (22-29); Chloride 94 mmol/L (98-107); Globulin 3.6 g/dL (1.3-4.6); Glomerular Filtration Rate 69.2 mL/min (90-130); Glucose 111 mg/dL (74-109); Sodium 135 mmol/L (136-145); Total Bilirubin 0.6 mg/dL (0.15-1.2); Total Protein 8.2 g/dL (6.6-8.7)
[2019-11-24 10:29] LABS: Lactic Sepsis W/Reflex 1.3 mmol/L (0.5-2.2)
[2019-11-24 10:30] LABS: Troponin(5th) Baseline 10 ng/mL (0-15)
--- NOTE | 2019-11-24 10:32 | PC.NURSE ---
pt transported to CT by stretcher with tech
[2019-11-24 10:34] LABS: ABG PCO2 42.1 mmHg (35-45); ABG PH Result 7.43 (7.35-7.45); Arterial Blood Gas Hematocrit 42.5 % (42-52); Base Excess ABG 3.4 mmol/L (-2.0-2.0); Blood Gas Allen Test Pos; Blood Gas Sample Site Brachial, left; Blood Gas Sample Type Arterial; Carboxyhemoglobin 1.2 %THgb (0.4-20.1); HCO3 ABG 28.1 mmol/L (22-26); HGB O2 Sat 90.9 % (95-100); Methemoglobin 0.3 % (0.4-1.5); Oxygen Device ROOM AIR; Total Hemoglobin 13.9 g/dL (14-18)
--- NOTE | 2019-11-24 11:59 | ECG_ITS ---
Measurements Intervals [place] Rate: 73 P: 44 WI: 181 QRS: 18 QRSD: 93 T: 37 QT: 395 QTc: 437 SINUS RHYTHM Compared to ECG 11/22/2019 16:05:38 No significant changes Electronically Signed On 11-24-2019 22:08:10 RESOLUTION REP by Sonny Eldridge M.D. [email or web address] f
[2019-11-24 12:27] LABS: Troponin 5 2HR 9.12 ng/mL (0-15)
[2019-11-24 12:32] LABS: Troponin 5 2HR Delta -0.88 ABS# (0-10)
--- NOTE | 2019-11-24 12:38 | PC.NURSE ---
pt reports feeling very clausterphobic and feels like he isn't getting his breath . Nurse opened curtains, put rails on bed down, and put 2L supplemental oxygen on pt.
--- NOTE | 2019-11-24 14:33 | PM.HP ---
Providers/Chief Complaint Admitting Physician: Arpit Gomez Primary Care Provider: Juma Gupta DO Chief Complaint: BLOOD CLOTS History of Present Illness Fransico Osborn is a 54 year old male recently discharged after observation in the hospital due to PE, returns to the hospital due to progressive worsening of daytime sleepiness, falling asleep anytime he is not stimulated. Some of this was observed during last admission, however, at that time he reported that he had not slept multiple nights due to persistent cough, chest pain secondary to later identified bilateral PE. Today he went for an appointment with his primary care provider Dr. Gupta was referred for admission back to the hospital due to worsening of symptoms. On presentation he falls asleep easily anytime he is not spoken to. His and daughter are in the room and reports that he had suffered a fall yesterday as well stating that he had fallen asleep. Apart from Eliquis, nicotine replacement no other medications were changed. CT of the head in ER is unremarkable. He is afebrile, without leukocytosis. He does have wheezing on exam thought to be perhaps related to ongoing bronchitis or chronic bronchitis due to smoking 1 pack/day. He reports coughing up brownish-yellowish sputum. Chest x-ray is unremarkable. Troponin EKG series unremarkable. He denies any headache, photosensitivity. His exam is otherwise nonfocal. Review of Systems Const: Reports: fatigue and daytime sleepiness; Denies: fever Eyes: Denies: change in vision, blurry vision or blind spots ENMT: Reports: hoarseness; Denies: throat pain, uvular edema, enlarged tonsils or painful swallowing Card: Denies: chest pain, palpitations, irregular heart rhythm or edema Resp: Reports: productive cough and coughing up blood (Brownish sputum); Denies: shortness of breath GI: Denies: abdominal pain, nausea, vomiting, vomiting blood or coffee grounds in vomit : Denies: flank pain, difficulty urinating, painful urination or urinary frequency Musc: Denies: joint swelling, redness, joint warmth or joint stiffness Skin/Breast: Denies: rash, itching, redness or sensitivity to light Neuro: Denies: headache or numbness in extremities Psych: Reports: sleeping more; Denies: anxiety, depression, mood swings, memory loss, visual hallucinations or auditory hallucinations Endo: Denies: excessive urination or excessive thirst Mateusz/Lymph: Denies: easy bruising or easy bleeding All/Imm: Denies: hives or throat swelling Medications/Allergies Allergies Allergy/AdvReac Type Severity Reaction Status Date / Time No Known Allergies Allergy Verified 11/22/19 10:58 PFSH Acute PFSH: Statuses (acute, chronic, etc) shown below reflect problem list status as previously entered and may not be historically accurate Medical History Angina pectoris (Acute) CAD (coronary artery disease) (Acute) CHF (congestive heart failure) (Acute) Hiatal hernia (Acute) History of left heart catheterization (Acute) HTN (hypertension) (Acute) Myocardial infarction (Acute) Penetrating head injury (Acute) Pulmonary emboli (Acute) Surgical History History of heart artery stent (Acute) S/P neurological surgery (Acute) Family History Father Heart disease Alzheimer's dementia Social History Smoking and tobacco status: former smoker Alcohol intake: never Lives independently: Yes Household members: significant other Marital status: Life Partner Current occupational status: employed Vitals/I&O/Wt Last Vital Signs Temp 98.7 F 11/24/19 09:28 Pulse 73 11/24/19 14:07 Resp 18 11/24/19 09:28 BP 138/70 11/24/19 14:07 Pulse Ox 99 11/24/19 14:07 Weight last 48 hrs Weight 122.47 kg Physical Exam Const: COMMON NORMALS: no apparent distress and oriented x3 GENERAL APPEARANCE: other (Wakes up and is alert and oriented, and the moment he is not spoken to falls right back asleep.) HENMT: COMMON NORMALS: oropharynx normal Neck/C-Spine: COMMON NORMALS: no JVD Resp: COMMON NORMALS: normal respiratory effort and clear to auscultation bilaterally AUSCULTATION: clear to auscultation bilaterally Cardio: COMMON NORMALS: no JVD, regular rhythm, S1 normal heart sound, S2 normal heart sound and no murmurs RHYTHM: regular rhythm HEART SOUNDS: S1 normal and S2 normal GI: COMMON NORMALS: normal to inspection, nondistended, normoactive bowel sounds, soft to palpation and non-tender PALPATION: Yes soft Extremity: COMMON NORMALS: no joint enlargement and no pedal edema Neuro: COMMON NORMALS: oriented x3 and moves all extremities Skin: COMMON NORMALS: no rashes or lesions noted GENERAL SKIN EXAM: no rashes or lesions noted Data : 11/24/19 10:07 11/24/19 10:07 Micro: Microbiology 11/24/19 10:20 Blood Culture - Preliminary Blood SPECIMEN COLLECTED 11/24/19 10:07 Blood Culture - Preliminary Blood SPECIMEN COLLECTED A&P Assessment and plan (1) Daytime somnolence: Getting progressively worse, despite getting a full night of sleep yesterday. Leading to a fall yesterday. Falling asleep anytime he is not stimulated. There is no history of drug use, alcohol use. He is not on any psychotropic medications. There are no other recently Acacian changes apart from Eliquis and nicotine replacement therapy. Symptoms kapil to narcolepsy. 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 There is no metabolic abnormality at this time to explain his symptoms. He does have some bronchitis with wheezing, possibly COPD which is undiagnosed, however, his carbon dioxide level is also within normal limits. His PO2 is somewhat low at 63. He is saturating well on minimal nasal cannula oxygen. No seizure-like activity. Anytime he wakes up he is alert and oriented. 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 Etiology of this is not clear. At this time will place him in observation for close monitoring and obtain neurological consultation. Status: Acute Code(s): R40.0 - Somnolence (2) Chronic bronchitis: Wheezing on exam, decreased air entry, cough productive of yellowish sputum. Appears he may be having chronic bronchitis, with reported cough over the past 1 month or so, although some of this may have been coming from recurrent PEs. He is a 1 pack/day smoker, although reportedly now is quitting. He would benefit from PFT as discussed with him during prior admission after he is out of acute episode. At this time we will start him on nebulizer treatments, Levaquin. Status: Acute Code(s): J42 - Unspecified chronic bronchitis (3) Pulmonary emboli: Continue Eliquis Status: Acute Code(s): I26.99 - Other pulmonary embolism without acute cor pulmonale Additional A&P Information CAD CHF Attestations Medical Necessity Statement*: Place in observation. Coding Level of Care Code Acute Multisensor Intelligence Officer for [facility] Fwd Diagnoses Daytime somnolence R40.0 Chronic bronchitis J42 Pulmonary emboli I26.99
--- NOTE | 2019-11-24 15:54 | PC.NURSE ---
ICU nurse not ready for patient report
--- NOTE | 2019-11-24 15:59 | ECG_ITS ---
Measurements Intervals [address] Rate: 72 P: 59 OH: 172 QRS: 42 QRSD: 93 T: 55 QT: 409 QTc: 451 SINUS RHYTHM Compared to ECG 11/22/2019 16:05:38 No significant changes Electronically Signed On 11-24-2019 22:09:30 DRAFTING DETAILER by Sonny Eldridge M.D. [id number]
[2019-11-24 16:36] LABS: Troponin 5 6HR 9.87 ng/L (0-15)
[2019-11-24 16:44] LABS: Troponin 5 6HR Delta -0.13 ng/L (0-12)
[2019-11-24] MEDS: atorvastatin 40 mg Tablet 80 MG PO (18:34)
[2019-11-24] MEDS: ipratropium-albuterol 3 mL Neb INHALATION (21:18)
[2019-11-24] MEDS: apixaban 5 mg Tablet 10 MG PO (21:21)
[2019-11-25] VITALS (21 sets, daily range): BP systolic 106–148; BP diastolic 45–100; PULSE 59–87; RESP 16–27; TEMP 36.7–37; O2SAT 92–99; BMI 41.7
[2019-11-25] MEDS: ipratropium-albuterol 3 mL Neb INHALATION ×4 (00:16→11:17)
[2019-11-25 05:42] LABS: Basophils % 0.3 %; Eosinophils # 0.2 10^3/uL (0.0-0.8); Eosinophils % 2.3 %; Hematocrit 37.8 % (42.0-52.0); Hemoglobin 12.1 g/dL (11.7-16.6); Lymphocytes # 1.2 10^3/uL (0.8-4.8); Lymphocytes % 18.5 %; Mean Corpuscular Hemoglobin 27.8 pg (28.0-34.0); Mean Corpuscular Volume 86.9 fL (80-94); Mean Platelet Volume 10.1 fL (7.4-10.4); Monocytes # 0.7 10^3/uL (0.2-0.9); Monocytes % 11.6 %; Neutrophils # 4.3 10^3/uL (1.8-7.7); Nucleated Red Blood Cells % 0 %; Platelet Count 180 10^3/cmm (130-400); Red Blood Count 4.35 10^6/uL (4.1-5.3); Red Cell Distribution Width 13.7 % (12.1-15.1); White Blood Count 6.4 10^3/uL (4.0-10.0)
[2019-11-25 06:00] LABS: Alanine Aminotransferase 21 U/L (0-41); Albumin Level 3.9 g/dL (3.5-5.2); Alkaline Phosphatase 70 IU/L (40-130); Anion Gap 16.1 (5-19); Aspartate Amino Transferase 16 U/L (0-40); Blood Urea Nitrogen 14 mg/dL (6-20); Calcium 9.4 mg/Dl (8.6-10.0); Carbon Dioxide 25 mmol/L (22-29); Chloride 98 mmol/L (98-107); Globulin 3.1 g/dL (1.3-4.6); Glomerular Filtration Rate 77.3 mL/min (90-130); Glucose 95 mg/dL (74-109); Potassium 4.1 mmol/L (3.5-5.1); Sodium 135 mmol/L (136-145); Total Bilirubin 0.5 mg/dL (0.15-1.2)
--- NOTE | 2019-11-25 07:58 | PM.CONSULT ---
Providers/Reason For Consult Consulting Physican/Specialty*: Barry / Neurology Reason for Consult*: Hypersomnolence Attending Physician: Marlene Leung MD Primary Care Provider: Juma Gupta DO History of Present Illness History of Present Illness Fransico Osborn is a 54 year old male admitted to the hospital for excessive drowsiness. He was recently discharged for an admission related to pulmonary embolism. He was noted to be excessively sleepy by his pcp during followup visit, and he was referred to the ER and subsequently admitted. He has not had focal neurologic symptoms. He states he is 'tired'. He believes it is related to his new medication (anticoagulation). He does have at least moderately severe ADRIAN. A sleep study in March 2018 showed an AHI of 23. He was unable tolerate CPAP, and has been using nocturnal oxygen instead. He also has not had his typical caffiene intake during the past several days while hospitalized. Review of Systems General: Reports: 10 or more systems reviewed and unremarkable except in HPI and below Const: Reports: fatigue, daytime sleepiness and snoring; Denies: fever Meds/Allergies Home Medications and Allergies Home Medications Medication Instructions Recorded Confirmed Type aspirin 81 mg PO DAILY 11/22/19 11/24/19 History bumetanide 2 mg PO BID 11/22/19 11/24/19 History lisinopril 2.5 mg PO DAILY 11/22/19 11/24/19 History magnesium oxide [MagOx] 400 mg PO DAILY 11/22/19 11/24/19 History nitroglycerin [Nitrostat] 0.4 mg SUBLINGUAL Q5M PRN 11/22/19 11/24/19 History potassium chloride 40 meq PO BID 11/22/19 11/24/19 History ranitidine HCl 300 mg PO DAILY 11/22/19 11/24/19 History rosuvastatin [Crestor] 40 mg PO BEDTIME 11/22/19 11/24/19 History spironolactone 25 mg PO DAILY 11/22/19 11/24/19 History Allergies Allergy/AdvReac Type Severity Reaction Status Date / Time No Known Allergies Allergy Verified 11/22/19 10:58 Current Medications Current Medications Generic Name Dose Route Start Last Admin Trade Name Freq PRN Reason Stop Dose Admin Albuterol/Ipratropium 3 ml 11/24/19 20:00 11/25/19 07:50 Duoneb INHALATION 3 ml Q4H.RESPIRATORY ZAHIRA Administration Apixaban 10 mg 11/24/19 19:00 11/24/19 21:21 Eliquis PO 10 mg BID ZAHIRA Administration Atorvastatin Calcium 80 mg 11/24/19 17:30 11/24/19 18:34 Lipitor PO 80 mg DAILY ZAHIRA Administration PFSH Acute PFSH: Statuses (acute, chronic, etc) shown below reflect problem list status as previously entered and may not be historically accurate Medical History Angina pectoris (Acute) CAD (coronary artery disease) (Acute) CHF (congestive heart failure) (Acute) Hiatal hernia (Acute) History of left heart catheterization (Acute) HTN (hypertension) (Acute) Myocardial infarction (Acute) Penetrating head injury (Acute) Pulmonary emboli (Acute) Surgical History History of heart artery stent (Acute) S/P neurological surgery (Acute) Family History Father Heart disease Alzheimer's dementia Social History Smoking and tobacco status: former smoker Alcohol intake: never Lives independently: Yes Household members: significant other Marital status: Life Partner Current occupational status: employed Vitals/I&O/Wt Last Vital Signs Temp 98.7 F 11/24/19 18:00 Pulse 81 11/25/19 07:53 Resp 16 11/25/19 07:50 BP 148/66 11/25/19 05:00 Pulse Ox 99 11/25/19 07:50 11/24/19 11/25/19 11/25/19 22:59 06:59 14:59 Intake Total 360 / 360 Output Total 400 / 400 800 / 1200 Balance -40 / -40 -800 / -840 Weight last 48 hrs Weight 266 lb 8 oz Weight 270 lb Physical Exam Const: COMMON NORMALS: no apparent distress, average body habitus (obese), oriented x3 and alert (drowsy. arouses easily to vocal stimulation) GENERAL APPEARANCE: cooperative; not anxious, not combative, not lethargic and not ill appearing NUTRITIONAL APPEARANCE: obese ORIENTATION/CONSCIOUSNESS: Yes oriented to person, Yes oriented to place and Yes oriented to time; not confused and not lethargic HENMT: COMMON NORMALS: normocephalic, head/scalp atraumatic, external ears normal and external nose normal HEAD & SCALP: normal to inspection, normocephalic and atraumatic FACE & SINUS: face symmetric; no flattened naso-labial fold NOSE: external nose normal EXTERNAL EAR: Yes external ears normal MOUTH: oral and palatal mucosa normal and tongue normal Eye: COMMON NORMALS: PERRL, EOMs intact bilaterally, conjunctivae normal and normal visual castaneda by confrontation GENERAL EYE: normal appearance of both eyes ALIGNMENT: Yes alignment normal EYELID: eyelids normal CONJUNCTIVA: Yes conjunctivae normal PUPIL: Yes PERRL, Yes pupil size - right Right pupil size (mm): 3 and Yes pupil size - left Left pupil size (mm): 3 EOM: No nystagmus Neck/C-Spine: COMMON NORMALS: no meningeal signs Chest: COMMONS NORMALS: inspection of chest normal, palpation of chest normal, inspection of breasts normal and palpation of breasts normal Resp: COMMON NORMALS: normal respiratory effort, no retractions, no use of accessory muscles, clear to auscultation bilaterally and percussion normal AUSCULTATION: clear to auscultation bilaterally PERCUSSION: percussion normal GI: COMMON NORMALS: normal to inspection, nondistended, normoactive bowel sounds, soft to palpation, non-tender, no hepatosplenomegaly, no masses and no bruits PALPATION: Yes soft and Yes no hepatosplenomegaly Extremity: COMMON NORMALS: normal to inspection, full ROM, normal capillary refill, no joint enlargement, no clubbing, cyanosis or edema, no calf tenderness and no pedal edema Neuro: COMMON NORMALS: oriented x3 SENSORIUM/ORIENTATION: Yes alert (drowsy. arouses easily to vocal stimulation), Yes oriented to person, Yes oriented to place, Yes oriented to time and No lethargic MENINGEAL SIGNS: Yes no meningeal signs CRANIAL NERVES: Yes CN II (optic), Yes CN III (oculomotor), Yes CN IV (trochlear), Yes CN V (trigeminal), Yes CN (abducens), Yes CN VII (facial), Yes CN VIII (vestibulocochlear), Yes CN IX and CN X (glossopharyngeal/vagus), Yes CN XI (spinal accessory) and Yes CN XII (hypoglossal) COORDINATION/BALANCE: [id number] test normal and does not sway with eyes open SPEECH: speech normal GAIT: Yes normal gait SENSORY EXAM: Yes extremities; No sensory level loss detected MOTOR EXAM: strength 5/5 throughout, no pronator drift, no tremor noted, no asterixis, muscle tone normal throughout, no movement abnormalities noted, No pronator drift and No tremor DEEP TENDON REFLEXES: Rt Biceps (C5, C6): 2+, Lt Biceps (C5, C6): 2+, Rt Patellar (L4): 2+, Lt Patellar (L4): 2+, Rt Ankle (S1): 2+ and Lt Ankle (S1): 2+ COORDINATION: [id number] test normal and does not sway with eyes open PUPIL EXAM: Normal pupillary reactivity/response: bilateral Skin: COMMON NORMALS: no rashes or lesions noted, no wounds, skin turgor normal, no jaundice, no petechiae and no mottling GENERAL SKIN EXAM: no rashes or lesions noted and turgor normal Data Micro: Micro: Microbiology 11/24/19 10:20 Blood Culture - Pr eliminary Blood SPECIMEN [facility] 11/24/19 10:07 Blood Culture - Pr eliminary Blood SPECIMEN [facility] A&P Assessment and plan (1) Hypersomnolence: He has a nonfocal neurologic exam and is easily arousable. He is not encephalopathic, but sleepy. I do not find worrisome findings for a serious neurologic condition such as encephalitis, ischiemia, or seizure. Certainly a bilateral thalamic infarct could cause hypersomnolence, but this is exceedly rare, and since he is already anticoagulated there is not much to be gained by getting an MRI. This type of stroke typically casues a deeper sleepiness than is found in this patient. I think is hypersomnolence is most likely related to his general medical condition, fragmented sleep related to his recent hospitalization, lack of his typical caffeine intake, and his untreated sleep apnea which may have been worsened in the setting of his PE. I would recommend he undergo a sleep evaluation and try to restart CPAP if possible, and to consider dental or surgical options for ADRIAN if he is unable to use CPAP. Given his cardiac issues stimulant medications are a poor option, but he has seemed to tolerate caffeine. He probably would do better in a less intensive environment with less frequent sleep disruptions. Status: Acute Code(s): G47.10 - Hypersomnia, unspecified (2) ADRIAN (obstructive sleep apnea): Status: Acute Code(s): G47.33 - Obstructive sleep apnea (adult) (pediatric) Coding Level of Care Code Acute Stapler Machine for [facility] Fwd Exam Problem Focused Diagnoses Hypersomnolence G47.10 ADRIAN (obstructive sleep apnea) G47.33
[2019-11-25] MEDS: aspirin 81 mg Chew Tablet PO (09:05)
[2019-11-25] MEDS: lisinopril 2.5 mg Tablet PO (09:06)
[2019-11-25] MEDS: apixaban 5 mg Tablet 10 MG PO (09:06)
[2019-11-25] MEDS: magnesium oxide 400 mg tablet PO (09:06)
[2019-11-25] MEDS: atorvastatin 40 mg Tablet 80 MG PO (09:06)
[2019-11-25] MEDS: levoFLOXacin 750 mg Tablet PO (09:06)
[2019-11-25] MEDS: spironolactone 25 mg Tablet PO (09:06)
[2019-11-25] MEDS: bumetanide 1 mg Tablet 2 MG PO (09:06)
--- NOTE | 2019-11-25 12:21 | XR_ITS ---
WS: [id number] PORTABLE CHEST HISTORY: chest pain and right upper quadrant pain COMPARISON: 11/24/2019 Lungs are clear and well expanded. No pleural effusion or pneumothorax. Cardiac size: Normal. Mediastinum/Aorta: Normal mediastinum. No osseous abnormality seen. XR/XR chest 1V portable [id number] IMPRESSION: Unremarkable portable chest.
[2019-11-25] MEDS: morphine 4 mg/mL SDV 1 mL 2 MG IVP (12:23)
--- NOTE | 2019-11-25 12:45 | CTR_ITS ---
PROCEDURE INFORMATION: Exam: CT Chest With Contrast Exam date and time: 11/25/2019 3:10 PM Age: 54 years old Clinical indication: Abdominal pain; Generalized; Patient HX: Ruq pain under breast and in back TECHNIQUE: Imaging protocol: Computed tomography of the chest with intravenous contrast. Total DLP: 2608.5 mGy-cm Radiation optimization: All CT scans at this facility use at least one of these dose optimization techniques: automated exposure control; mA and/or kV adjustment per patient size (includes targeted exams where dose is matched to clinical indication); or iterative reconstruction. Contrast material: OMNI 300; Contrast volume: 95 ml; Contrast route: IV; COMPARISON: CT angio chest PE protcl [id number] 11/22/2019 3:12 PM FINDINGS: Lungs: Right upper and right lower lobe calcified granulomata. No consolidation. No change from prior scan. Pleural space: Unremarkable. No pneumothorax. No pleural effusion. Heart: There are coronary artery calcifications. Pulmonary arteries: No evidence of pulmonary arterial emboli on 5 mm thick slices. Aorta: No thoracic aortic aneurysm or dissection. Minimal calcified plaque. Lymph nodes: There are calcified mediastinal and right hilar lymph nodes. Bones/joints: Unremarkable. No acute fracture. Soft tissues: Unremarkable. IMPRESSION: 1. Old granulomatous disease. 2. No acute disease. 3. Pulmonary emboli were reported on prior scan. No pulmonary arterial emboli identified on current scan with 5 mm axial images. PROCEDURE INFORMATION: Exam: CT Abdomen And Pelvis With Contrast Exam date and time: 11/25/2019 3:10 PM Age: 54 years old Clinical indication: Abdominal pain; Generalized; Patient HX: Ruq pain under breast and in back TECHNIQUE: Imaging protocol: Computed tomography of the abdomen and pelvis with intravenous contrast. Total DLP: 2608.5 mGy-cm Radiation optimization: All CT scans at this facility use at least one of these dose optimization techniques: automated exposure control; mA and/or kV adjustment per patient size (includes targeted exams where dose is matched to clinical indication); or iterative reconstruction. Contrast material: OMNI 300; Contrast volume: 95 ml; Contrast route: IV; COMPARISON: CT angio chest PE protcl [id number] 11/22/2019 3:12 PM FINDINGS: Liver: The liver is normal. Gallbladder and bile ducts: The gallbladder is normal. Bile ducts are not dilated. Pancreas: The pancreas is normal. Spleen: There are a few calcified granulomata within the spleen. The spleen is mildly enlarged, 14 centimetres. The spleen is otherwise normal. Adrenals: The adrenal glands are normal. Kidneys and ureters: The kidneys are normal. No hydronephrosis. Stomach and bowel: Unremarkable. No obstruction. No mucosal thickening. Appendix: The appendix is normal. Intraperitoneal space: There is no free fluid or fluid collection. There is no free air. Vasculature: There is calcified aortic plaque. Lymph nodes: Unremarkable. No enlarged lymph nodes. Bladder: The bladder is normal with no evidence of calculi. Reproductive: Unremarkable as visualized. Bones/joints: Unremarkable. No acute fracture. Soft tissues: There is a fat containing left inguinal hernia. There is a fat containing umbilical hernia. CT/CT chest abd pel w con* IMPRESSION: No acute findings. Radiation Dose CTDIVOL = (mGy): DLP = 2608.5~2608.5 (mGy-cm)
--- NOTE | 2019-11-25 12:45 | USCV_ITS ---
Fransico Osborn Age: 54 Gender: M : 1965 Exam Date: 11/25/2019 15:38 Ordering Phys: Marlene Leung MD Technologist: Anastasiia [place] Exam Location: [facility] [place] Indication: DVT HISTORY: DVT. PROCEDURES: Venous duplex imaging was performed in bilateral lower extremities. The following venous structures were evaluated: common femoral vein, profunda vein, proximal portion of the greater saphenous vein, superficial femoral vein, and the popliteal vein. In addition, the posterior tibial and peroneal trunk were evaluated. Serial compression, augmentation maneuvers, and spectral Doppler flow evaluation were performed. FINDINGS: Normal 2-D Doppler and augmentation and compressibility throughout the lower extremity venous structures. Additional imaging through the proximal calf veins also reveals no thrombus. Limited evaluation of the greater saphenous vein is patent with no thrombus. CONCLUSIONS No DVT bilateral lower extremities. Dr. Gina Moeller DO (Electronically Signed) Final Date: 26 November 2019 07:34 S
--- NOTE | 2019-11-25 12:48 | ECG_ITS ---
Measurements Intervals [place] Rate: 75 P: 34 [place]: 163 QRS: 11 QRSD: 97 T: 38 QT: 387 QTc: 434 SINUS RHYTHM WARNING: DATA QUALITY MAY AFFECT INTERPRETATION Compared to ECG 11/24/2019 15:51:17 No significant changes Electronically Signed On 11-25-2019 20:28:21 REMODELER by Sonny Eldridge M.D. [id number]
[2019-11-25 13:59] LABS: Troponin T (5th) Once 6 ng/mL (0-15)
[2019-11-25] MEDS: iohexol 300 mg/mL 100 mL Btl IV (15:25)
--- NOTE | 2019-11-25 16:30 | PC.NURSE ---
Still awaiting Dr Leung's decision to continue with discharge. Discharge orders were wrote earlier today then pt complained of severe pain RUQ abdomen. CT ordered, US of abdomen and legs ordered. US of abdomen ,unable to complete as pt. had not been NPO> Ct has been fofana US of legs done Awaiting results and final plan of care decision.
--- NOTE | 2019-11-25 18:10 | PC.NURSE ---
Pt discharged after providing and discussing discharge instructions. Centralized scheduling to call with appt. time for Sleep study.
== END 2019-11-25 18:15 | disposition home or self-care (01) ==
LOC: ER 12:54 → ICU 13:58
PROVIDERS: Admitting Provider Internal Medicine; Emergency Provider Family Medicine; Family Provider Electrodiagnostic Medicine; PCP Electrodiagnostic Medicine; Visit Provider Student in an Organized Health Care Education/Training Program
DX: I26.99 Other pulmonary embolism without acute cor pulmonale (principal); R40.0 Somnolence; J42 Unspecified chronic bronchitis; I11.0 Hypertensive heart disease with heart failure; I50.9 Heart failure, unspecified; I25.110 Atherosclerotic heart disease of native coronary artery with unstable angina pectoris; I25.2 Old myocardial infarction; Z86.711 Personal history of pulmonary embolism; Z87.891 Personal history of nicotine dependence; Z86.718 Personal history of other venous thrombosis and embolism; Z95.5 Presence of coronary angioplasty implant and graft; Z82.49 Family history of ischemic heart disease and other diseases of the circulatory system
CPT/HCPCS: 12345; 36415; 36600; 70450; 71045; 71260; 74177; 80053; 82805; 83605; 84484; 85025; 87040; 93005; 93970; 94640; 96361; 96374; 96375; 99283; 99285; G0378; J2270; J7030; Q9967

== ENCOUNTER 2019-11-26 22:03 | Emergency (ER) | payer BC, SELFPAY ==
[2019-11-26 22:08] VITALS: BP 113/70; PULSE 85; RESP 20; TEMP 36.7; O2SAT 93; BMI 41.3
--- NOTE | 2019-11-26 22:22 | W.ED.EXTPRO ---
HPI - Extremity Problem General: Chief complaint: Extremity Problem,Nontraumatic Stated complaint: FEET AND BACK PAIN Time Seen by Provider: 11/26/19 22:12 History of Present Illness: HPI Narrative: Patient discharged from the hospital yesterday. Patient is having some muscle cramping in his feet and his low back shoulder blades. It is slightly better now he said since he has been here in the ER. Muscle cramping that started earlier this evening. With smoking 5 days ago Complaint: other (Muscle cramps) Onset (ago): hour(s) Pain Consistency: intermittent Location: left, right, upper extremity and lower extremity Severity scale (1-10): 6 (When it happens) Quality: sharp and other (Cramping) Radiation: none Associated symptoms: Reports no associated symptoms; Deny chest pain, fever(s) or rash Review of Systems Const: Denies: fever, chills or body aches Eyes: Denies: change in vision or blurry vision ENMT: Denies: throat pain or nasal congestion Card: Denies: chest pain or shortness of breath on exertion Resp: Denies: shortness of breath, productive cough or non-productive cough GI: Denies: abdominal pain, nausea or vomiting : Denies: difficulty urinating Musc: Reports: muscle cramps (Back underneath shoulder blades low back feet legs); Denies: extremity pain Skin/Breast: Denies: rash Neuro: Denies: headache Psych: Denies: anxiety or depression Mateusz/Lymph: Denies: easy bruising PFSH ED PFSH: Statuses (acute, chronic, etc) shown below reflect problem list status as previously entered and may not be historically accurate Social History Smoking and tobacco status: former smoker Alcohol intake: never Lives independently: Yes Household members: significant other Marital status: Life Partner Current occupational status: employed Physical Exam Const: COMMON NORMALS: no apparent distress, average body habitus and oriented x3 HENMT: COMMON NORMALS: normocephalic HEAD & SCALP: normal to inspection and normocephalic FACE & SINUS: normal facial exam Eye: COMMON NORMALS: conjunctivae normal GENERAL EYE: normal appearance of both eyes CONJUNCTIVA: Yes conjunctivae normal Neck/C-Spine: COMMON NORMALS: no JVD Chest: COMMONS NORMALS: inspection of chest normal Resp: COMMON NORMALS: normal respiratory effort and clear to auscultation bilaterally AUSCULTATION: clear to auscultation bilaterally Cardio: COMMON NORMALS: no JVD, regular rate and regular rhythm RATE: regular rate RHYTHM: regular rhythm GI: COMMON NORMALS: normal to inspection, nondistended, normoactive bowel sounds Extremity: COMMON NORMALS: normal to inspection and full ROM Neuro: COMMON NORMALS: oriented x3 Course Vital Signs: Vital signs: Vital Signs Temperature 98.1 F 11/26/19 22:08 Pulse Rate 85 11/26/19 22:08 Respiratory Rate 20 H 11/26/19 22:08 Blood Pressure 113/70 11/26/19 22:08 Pulse Oximetry 93 11/26/19 22:08 MDM - Extremity (Nontraumatic) MDM Narrative: Medical decision making narrative: Patient states he feels much better cramps have stopped he is sleeping in the room I had to wake him to go over laboratories with him. Said he is not had any cramps since the shot was administered Lab Data: Labs: Lab Results 11/26/19 11/26/19 Range/Units 22:32 22:32 WBC 9.8 (4.0-10.0) 10^3/ uL RBC 4.75 (4.1-5.3) 10^6/u L Hgb 12.8 (11.7-16.6) g/dL Hct 39.0 L (42.0-52.0) % MCV 82.1 (80-94) fL MCH 26.9 L (28.0-34.0) pg MCHC 32.8 (30.0-36.0) g/dL RDW 13.5 (12.1-15.1) % Plt Count 264 (130-400) 10^3/c mm MPV 10.0 (7.4-10.4) fL Neut % (Auto) 68.3 % Lymph % (Auto) 17.7 % Archer % (Auto) 11.8 % Eos % (Auto) 1.5 % Baso % (Auto) 0.4 % Neut # (Auto) 6.7 (1.8-7.7) 10^3/u L Lymph # (Auto) 1.7 (0.8-4.8) 10^3/u L Archer # (Auto) 1.2 H (0.2-0.9) 10^3/u L Eos # (Auto) 0.2 (0.0-0.8) 10^3/u L Baso # (Auto) 0.0 (0.0-0.1) 10^3/u L Nucleated RBC % (a uto) 0 % Nucleated RBCs # 0.0 /100WBC Sodium 128 L (136-145) mmol/L Potassium 4.2 (3.5-5.1) mmol/L Chloride 89 L (98-107) mmol/L Carbon Dioxide 24 (22-29) mmol/L Anion Gap 19.2 H (5-19) BUN 18 (6-20) mg/dL Creatinine 1.2 (0.7-1.2) mg/dL GFR Calculation 62.6 L (90-130) mL/min Glucose 116 H (74-109) mg/dL Calcium 9.7 (8.5-10.5) mg/dL Total Bilirubin 0.4 (0.15-1.2) mg/dL AST 22 (0-40) U/L ALT 27 (0-41) U/L Alkaline Phosphata se 83 (40-130) IU/L Total Protein 8.0 (6.6-8.7) g/dL Albumin 4.4 (3.5-5.2) g/dL Globulin 3.6 (1.3-4.6) g/dL Discharge Plan Discharge Patient Disposition: Home, Self-Care Clinical Impression: Muscle cramps, Hyponatremia Condition: Stable Prescriptions: New Robaxin-750 750 mg tablet 750 mg PO TID PRN (Reason: cramps) Qty: 14 RF: 0 No Action bumetanide 2 mg Tablet 2 mg PO BID RF: 0 spironolactone 25 mg Tablet 25 mg PO DAILY RF: 0 magnesium oxide [MagOx] 400 mg (241.3 mg magnesium) Tablet 400 mg PO DAILY RF: 0 ranitidine HCl 300 mg Capsule 300 mg PO DAILY RF: 0 nitroglycerin [Nitrostat] 0.4 mg Tablet, Sublingual 0.4 mg SUBLINGUAL Q5M PRN (Reason: Chest Pain) RF: 0 aspirin 81 mg Tablet,Chewable 81 mg PO DAILY RF: 0 lisinopril 2.5 mg Tablet 2.5 mg PO DAILY RF: 0 rosuvastatin [Crestor] 40 mg Tablet 40 mg PO BEDTIME RF: 0 potassium chloride 20 mEq Tablet Extended Release 40 meq PO BID RF: 0 Eliquis 5 mg (74 tabs) tablets,dose pack See Rx Instructions .ROUTE .COMPLEX Qty: 74 RF: 0 albuterol sulfate 90 mcg/actuation HFA aerosol inhaler 1 inh INHALATION Q6H PRN (Reason: shortness of breath or wheezing) Qty: 6.7 RF: 0 Discharge Orders: Discharge Order (Routine); Ordered 11/26/19 Ordered By: Demarcus Gill Referrals: Juma Gupta DO [Primary Care Provider] - Discharge Diet: Usual diet Discharge Activity: Increase activity as tolerated Patient Instructions: Hyponatremia (ED), Muscle Cramp (ED) Activity Restrictions/Additional Instructions: Follow-up with medical provider as directed. Take medications as prescribed. Return to the ER or your medical provider if condition worsens. Please read and understand discharge instructions. If any questions ask please. Cut back on fluid intake for next 2 to 3 days increase salt intake. 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
[2019-11-26] MEDS: orphenadrine 30 mg/mL Inj 2 mL 60 MG IM (22:28)
[2019-11-26 22:44] LABS: Basophils % 0.4 %; Eosinophils # 0.2 10^3/uL (0.0-0.8); Eosinophils % 1.5 %; Hemoglobin 12.8 g/dL (11.7-16.6); Lymphocytes # 1.7 10^3/uL (0.8-4.8); Lymphocytes % 17.7 %; Mean Corpuscular HGB Conc 32.8 g/dL (30.0-36.0); Mean Corpuscular Hemoglobin 26.9 pg (28.0-34.0); Mean Corpuscular Volume 82.1 fL (80-94); Monocytes # 1.2 10^3/uL (0.2-0.9); Monocytes % 11.8 %; Neutrophils # 6.7 10^3/uL (1.8-7.7); Neutrophils % 68.3 %; Nucleated Red Blood Cells % 0 %; Platelet Count 264 10^3/cmm (130-400); Red Blood Count 4.75 10^6/uL (4.1-5.3); Red Cell Distribution Width 13.5 % (12.1-15.1); White Blood Count 9.8 10^3/uL (4.0-10.0)
[2019-11-26 23:00] LABS: Alanine Aminotransferase 27 U/L (0-41); Albumin Level 4.4 g/dL (3.5-5.2); Alkaline Phosphatase 83 IU/L (40-130); Anion Gap 19.2 (5-19); Aspartate Amino Transferase 22 U/L (0-40); Blood Urea Nitrogen 18 mg/dL (6-20); Calcium 9.7 mg/dL (8.5-10.5); Carbon Dioxide 24 mmol/L (22-29); Chloride 89 mmol/L (98-107); Globulin 3.6 g/dL (1.3-4.6); Glomerular Filtration Rate 62.6 mL/min (90-130); Glucose 116 mg/dL (74-109); Potassium 4.2 mmol/L (3.5-5.1); Sodium 128 mmol/L (136-145); Total Bilirubin 0.4 mg/dL (0.15-1.2)
[2019-11-26 23:19] VITALS: BP 128/101; PULSE 76; O2SAT 94
== END 2019-11-26 23:20 | disposition home or self-care (01) ==
PROVIDERS: Emergency Provider Nurse Practitioner Family; Family Provider Electrodiagnostic Medicine; PCP Electrodiagnostic Medicine
DX: R25.2 Cramp and spasm (principal); E87.1 Hypo-osmolality and hyponatremia; Z79.82 Long term (current) use of aspirin; Z79.01 Long term (current) use of anticoagulants; Z87.891 Personal history of nicotine dependence
CPT/HCPCS: 80053; 85025; 96372; 99281; J2360

== ENCOUNTER → 2020-07-22 13:57 | Outpatient (BNVA) | payer BC, SELFPAY | PROVIDERS: Family Provider Electrodiagnostic Medicine; PCP Electrodiagnostic Medicine; Visit Provider Family Medicine | DX: B34.9 Viral infection, unspecified (principal); R50.9 Fever, unspecified; Z20.828 Contact with and (suspected) exposure to other viral communicable diseases | CPT/HCPCS: 87635 ==

== ENCOUNTER 2020-07-24 18:40 | Emergency (ER) | payer BC, SELFPAY ==
[2020-07-24 19:03] VITALS: BP 125/81; PULSE 90; RESP 14; TEMP 36.8; O2SAT 97; BMI 40.7
--- NOTE | 2020-07-24 19:21 | XRR_ITS ---
PROCEDURE INFORMATION: Exam: XR Chest, 1 View Exam date and time: 07/24/2020 8:13 PM Age: 55 years old Clinical indication: Chest pain; Type not specified; Prior surgery; Surgery date: 6+ months; Surgery type: Stent; Patient HX: C/O shortness of breath TECHNIQUE: Imaging protocol: XR of the chest Views: Frontal portable upright view of the chest. COMPARISON: CT chest abd pel w con* 11/25/2019 3:33 PM FINDINGS: Lungs: The lungs are clear bilaterally. The pulmonary vasculature is normal. Pleural space: No pleural effusion. No pneumothorax. Heart/Mediastinum: The heart is normal in size and contour. Bones/joints: No acute chest wall abnormality identified. XR/XR chest 1V portable [id number] IMPRESSION: No acute cardiopulmonary abnormality identified.
--- NOTE | 2020-07-24 19:21 | ECG_ITS ---
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 Measurements Intervals [place] Rate: 84 P: 47 WA: 167 QRS: 12 QRSD: 92 T: 53 QT: 373 QTc: 442 Interpretive Statements SINUS RHYTHM Compared to ECG 11/25/2019 13:04:28 No significant changes Electronically Signed On 07-25-2020 19:08:51 CDT by Jian Floyd M.D. [id number]
--- NOTE | 2020-07-24 19:22 | W.ED.NAVMDI ---
HPI - Nausea/Vomiting/Diarrhea General: Chief complaint: Nausea/Vomiting/Diarrhea Stated complaint: diarrhea Time Seen by Provider: 07/24/20 19:06 Source: patient Mode of arrival: ambulatory Limitations: no limitations History of Present Illness: HPI Narrative: Patient is a 55-year-old male who presents to ED today with multiple complaints. He tells me his main complaint is nausea and vomiting over the past 3 days. Patient tells me he will vomit and/or have diarrhea anytime I eat . He denies hematemesis, hematochezia or melanotic stools. He states episodes of diarrhea and vomiting are anywhere from 3-5 daily. He has not been around anybody else with similar symptoms. He does admit to abdominal cramping. Patient recently had COVID testing 2 days ago that came back negative. He does report subjective fevers and chilling. He is also reporting some shortness of breath. Patient states he has COPD and CHF and normally is supposed to be wearing oxygen at night however usually does not. He states over the past 2 days he has had to wear oxygen during the day. He has not noticed any LE swelling or abdominal swelling. No complaints of PND. Reports baseline orthopnea-not worsening. Does complain of some mild chest pain. Associated nausea: Yes Associated symtoms: Reports chest pain and nausea; Denies dysuria, fatigue, headache(s), malaise, palpitations or syncope Review of Systems Const: Denies: fever(s), chills, body aches, fatigue or malaise ENMT: Denies: throat pain or odynophagia Card: Reports: chest pain, dyspnea on exertion (chronic) and orthopnea (chronic); Denies: palpitations, irregular heart rhythm, edema, swelling of feet/ankles, lightheadedness, syncope, pre-syncope or leg pain with exertion Resp: Reports: dyspnea (chronic-slightly worse); Denies: productive cough, non-productive cough, wheezing, pain on inspiration, change in phlegm color, hemoptysis or chest congestion GI: Reports: abdominal pain, nausea, vomiting and diarrhea; Denies: hematemesis, coffee ground emesis, change in bowel habits, hematochezia, melena or white/light colored stool : Denies: flank pain, difficulty urinating, dysuria, urinary frequency, urinary urgency or urinary hesitancy Musc: Denies: neck pain, back pain, extremity pain, extremity swelling, joint pain or joint swelling Skin/Breast: Denies: rash Neuro: Denies: headache(s), numbness in extremities, weakness in extremities or sensory changes PFS ED PFSH: Medical History (Updated 07/24/20 @ 22:44 by SHAUNA Mcneal) Angina pectoris CAD (coronary artery disease) CHF (congestive heart failure) Fever Hiatal hernia History of left heart catheterization HTN (hypertension) Myocardial infarction Obesity Penetrating head injury Pulmonary emboli Viral syndrome Surgical History History of heart artery stent S/P neurological surgery Family History Father Heart disease Alzheimer's dementia Social History Smoking and tobacco status: current every day smoker cigarettes Packs smoked per day: 1 Years cigarettes smoked: 45 Quit status (tobacco): has tried quititng Alcohol intake: current Alcohol intake frequency: holidays/special occasions only Lives independently: Yes Household members: significant other Marital status: Life Partner Current occupational status: employed History of recent travel: No Current gender identity: Male Physical Exam Const: COMMON NORMALS: no acute distress, patient oriented x3, no limitations and alert NUTRITIONAL APPEARANCE: obese morbidly obese ORIENTATION/CONSCIOUSNESS: Yes oriented to person, Yes oriented to place and Yes oriented to time HENMT: COMMON NORMALS: normocephalic and atraumatic HEAD & SCALP: normocephalic and atraumatic Chest: COMMONS NORMALS: normal inspection of the chest and normal palpation of entire chest wall Resp: COMMON NORMALS: normal respiratory effort and clear to auscultation bilaterally AUSCULTATION: clear to auscultation bilaterally Cardio: COMMON NORMALS: regular rate and regular rhythm RATE: regular rate RHYTHM: regular rhythm GI: COMMON NORMALS: Normal to inspection, nondistended, normoactive bowel sounds present, Soft to palpation, No hepatosplenomegaly present and no masses PALPATION: Yes Soft to palpation, Yes Tenderness to palpation present (GI) Details: LLQ and Yes No hepatosplenomegaly present OTHER: easily reducible chronic umbilical hernia present : COMMON NORMALS: Yes no CVA tenderness BLADDER/KIDNEY EXAM: Yes no CVA tenderness Back/Pelvis: COMMON NORMALS: no CVA tenderness Extremity: COMMON NORMALS: normal to inspection, full ROM, no calf tenderness and no pedal edema GENERAL: Yes normal exam except as noted Neuro: COMMON NORMALS: patient oriented x3 SENSORIUM/ORIENTATION: Yes alert, Yes oriented to person, Yes oriented to place and Yes oriented to time Skin: COMMON NORMALS: no rashes or lesions noted GENERAL SKIN EXAM: no rashes or lesions noted Course Vital Signs: Vital signs: Vital Signs Temperature 98.3 F 07/24/20 19:03 Pulse Rate 76 07/24/20 22:53 Respiratory Rate 16 07/24/20 22:53 Blood Pressure 143/87 07/24/20 22:53 Pulse Oximetry 98 07/24/20 22:53 MDM - Nausea/Vomiting/Diarrhea MDM Narrative: Medical decision making narrative: Patient has not had any episodes of vomiting or diarrhea here. His vital signs are completely stable. He is satting normal on room air. Patient's work-up including CBC, CMP, troponin, BNP are all non-concerning. CXR is normal. EKG is normal. CT scan showing mild colitis. Patient clinically appears well. He has been given fluids. Patient symptoms present over the past 48 hours. Discussed how most cases of mild colitis will subside on their own however if patient does not begin to improve over the next 24 to 48 hours I recommend filling the antibiotics prescribed. He states he will follow-up with PCP this week for reevaluation. Return to ED precautions given. Lab Data: Labs: Lab Results 07/24/20 07/24/20 07/24/20 Range/Units 19:28 19:28 19:28 WBC 11.3 H (4.0-10.0) 10^3/ uL RBC 5.17 (4.1-5.3) 10^6/u L Hgb 14.4 (11.7-16.6) g/dL Hct 43.9 (42.0-52.0) % MCV 84.9 (80-94) fL MCH 27.9 L (28.0-34.0) pg MCHC 32.8 (30.0-36.0) g/dL RDW 13.6 (12.1-15.1) % Plt Count 230 (130-400) 10^3/c mm MPV 10.2 (7.4-10.4) fL Neut % (Auto) 74.8 % Lymph % (Auto) 14.3 % Snyder % (Auto) 9.6 % Eos % (Auto) 0.7 % Baso % (Auto) 0.2 % Neut # (Auto) 8.44 H (1.8-7.7) 10^3/u L Lymph # (Auto) 1.6 (0.8-4.8) 10^3/u L Snyder # (Auto) 1.1 H (0.2-0.9) 10^3/u L Eos # (Auto) 0.1 (0.0-0.8) 10^3/u L Baso # (Auto) 0.0 (0.0-0.1) 10^3/u L Nucleated RBC % (a uto) 0 % Nucleated RBCs # 0.0 /100WBC Sodium 137 (136-145) mmol/L Potassium 3.5 (3.5-5.1) mmol/L Chloride 100 (98-107) mmol/L Carbon Dioxide 24 (22-29) mmol/L Anion Gap 16.5 (5-19) BUN 9 (6-20) mg/dL Creatinine 0.8 (0.7-1.2) mg/dL GFR Calculation 99.6 (90-130) mL/min Glucose 114 (65-115) mg/dL Calculated Osmolal ity 284 L (285-295) mOsm/k g Calcium 9.1 (8.5-10.5) mg/dL Total Bilirubin 0.2 (0.15-1.2) mg/dL AST 19 (0-40) U/L ALT 25 (0-41) U/L Alkaline Phosphata se 80 (40-130) IU/L Troponin T Baselin e 7 (0-15) ng/L Troponin T 120 Min craig (0-15) ng/L Delta Troponin T (0-10) ABS# NT-Pro-B Natriuret Pep 14 (0-125) pg/mL Total Protein 8.0 (6.6-8.7) g/dL Albumin 4.3 (3.5-5.2) g/dL Globulin 3.7 (1.3-4.6) g/dL Lipase 21 (13-60) U/L 07/24/ Range/Units 21:40 WBC (4.0-10.0) 10^3/ uL RBC (4.1-5.3) 10^6/u L Hgb (11.7-16.6) g/dL Hct (42.0-52.0) % MCV (80-94) fL MCH (28.0-34.0) pg MCHC (30.0-36.0) g/dL RDW (12.1-15.1) % Plt Count (130-400) 10^3/c mm MPV (7.4-10.4) fL Neut % (Auto) % Lymph % (Auto) % Snyder % (Auto) % Eos % (Auto) % Baso % (Auto) % Neut # (Auto) (1.8-7.7) 10^3/u L Lymph # (Auto) (0.8-4.8) 10^3/u L Snyder # (Auto) (0.2-0.9) 10^3/u L Eos # (Auto) (0.0-0.8) 10^3/u L Baso # (Auto) (0.0-0.1) 10^3/u L Nucleated RBC % (a uto) % Nucleated RBCs # /100WBC Sodium (136-145) mmol/L Potassium (3.5-5.1) mmol/L Chloride (98-107) mmol/L Carbon Dioxide (22-29) mmol/L Anion Gap (5-19) BUN (6-20) mg/dL Creatinine (0.7-1.2) mg/dL GFR Calculation (90-130) mL/min Glucose (65-115) mg/dL Calculated Osmolal ity (285-295) mOsm/k g Calcium (8.5-10.5) mg/dL Total Bilirubin (0.15-1.2) mg/dL AST (0-40) U/L ALT (0-41) U/L Alkaline Phosphata se (40-130) IU/L Troponin T Baselin e (0-15) ng/L Troponin T 120 Min craig 6.96 (0-15) ng/L Delta Troponin T -0.04 L (0-10) ABS# NT-Pro-B Natriuret Pep (0-125) pg/mL Total Protein (6.6-8.7) g/dL Albumin (3.5-5.2) g/dL Globulin (1.3-4.6) g/dL Lipase (13-60) U/L Imaging Data^: CT Abd/Pel: Radiologist's impression: [address] [place] [address] CT Scan Report Signed Patient: Fransico Osborn Unit #: [id number] : 1965 Age/Sex: 55 / M ADM Date: 07/24/20 Loc: ER Room/Bed: Attending Dr: Ordering Provider/Ordering MD: Victoria Stephen Date of Service: 07/24/20 Procedure(s): CT abdomen pelvis w con* [id number] Accession Number(s): [id number] Report Number: [id number] PROCEDURE INFORMATION: Exam: CT Abdomen And Pelvis With Contrast Exam date and time: 07/24/2020 10:11 PM Age: 55 years old Clinical indication: Other: Diarrhea; Abdominal pain; Generalized; Additional info: Abdominal pain, vomiting, diarrhea TECHNIQUE: Imaging protocol: Computed tomography of the abdomen and pelvis with intravenous contrast. Radiation optimization: All CT scans at this facility use at least one of these dose optimization techniques: automated exposure control; mA and/or kV adjustment per patient size (includes targeted exams where dose is matched to clinical indication); or iterative reconstruction. Contrast material: OMNI 300; Contrast volume: 95 ml; Contrast route: INTRAVENOUS (IV); COMPARISON: No relevant prior studies available. RADIATION DOSE METRICS: Total DLP (mGy-cm): 1714.69 FINDINGS: Liver: Normal. No mass. Gallbladder and bile ducts: The gallbladder appears mildly contracted. Pancreas: Normal. No ductal dilation. Spleen: Punctate calcifications are seen within the spleen compatible with calcified granulomas. Adrenals: Normal. No mass. Kidneys and ureters: Normal. No hydronephrosis. Stomach and bowel: There is some subtle haziness seen adjacent to the proximal ascending colon, findings that could represent subtle inflammatory changes and mild colitis. Appendix: The appendix is visualized and is normal in configuration. Intraperitoneal space: Unremarkable. No free air. No significant fluid collection. Vasculature: Calcifications are seen within the thoracic and abdominal aorta, iliac arteries and femoral arteries bilaterally the. Lymph nodes: Unremarkable. No enlarged lymph nodes. Bladder: Unremarkable as visualized. Reproductive: Unremarkable as visualized. Bones/joints: Unremarkable. No acute fracture. Soft tissues: There is a small umbilical hernia present containing fat. There is a small left inguinal hernia containing fat. CT/CT abdomen pelvis w con* [id number] IMPRESSION: 1. Subtle haziness seen adjacent to the proximal ascending colon could represent mild inflammatory changes and mild colitis. 2. Normal appendix 3. Small left inguinal hernia containing fat 4. Small umbilical hernia containing fat Radiation Dose CTDIVOL = (mGy): DLP = 1714.69 (mGy-cm) Dictated By: José Luis Paz MD Signed By: José Luis Paz MD Signed Date/Time: 07/24/202228 DD/ 27 EKG Data^: EKG 1: EKG interpretation date: 07/24/20 EKG interpretation time: 20:09 Interpretation: Sinus rhythm Rate [address] elevation or depression changes noted Discharge Plan Discharge Patient Disposition: Home Clinical Impression: Colitis Condition: Stable Prescriptions: New Cipro 500 mg tablet 500 mg PO Q12H Qty: 14 RF: 0 Flagyl 500 mg tablet 500 mg PO BID 7 Days Qty: 14 RF: 0 No Action clopidogrel [Plavix] 75 mg tablet 75 mg PO DAILY RF: 0 loratadine 10 mg tablet 10 mg PO DAILY RF: 0 famotidine 40 mg tablet 40 mg PO DAILY RF: 0 rosuvastatin [Crestor] 40 mg tablet 40 mg PO BEDTIME Qty: 90 RF: 3 pantoprazole 20 mg tablet,delayed release (DR/EC) 20 mg PO DAILY 90 Days Qty: 90 RF: 3 bumetanide 2 mg tablet 2 mg PO BID 90 Days Qty: 180 RF: 3 potassium chloride 20 mEq tablet extended release 40 meq PO BID 90 Days Qty: 360 RF: 3 spironolactone 25 mg tablet 25 mg PO DAILY 90 Days Qty: 90 RF: 3 Eliquis 5 mg tablet 5 mg PO BID Qty: 180 RF: 3 tiotropium bromide [Spiriva Respimat] 1.25 mcg/actuation mist See Rx Instructions .ROUTE .COMPLEX Qty: 4 RF: 3 magnesium oxide [MagOx] 400 mg (241.3 mg magnesium) Tablet 400 mg PO DAILY RF: 0 nitroglycerin [Nitrostat] 0.4 mg Tablet, Sublingual 0.4 mg SUBLINGUAL Q5M PRN (Reason: Chest Pain) RF: 0 lisinopril 2.5 mg Tablet 2.5 mg PO DAILY RF: 0 albuterol sulfate 90 mcg/actuation HFA aerosol inhaler 1 inh INHALATION Q6H PRN (Reason: shortness of breath or wheezing) Qty: 6.7 RF: 0 Discharge Orders: Discharge Order (Routine); Ordered 07/24/20 Ordered By: Victoria Stephen Referrals: Juma Gupta DO [Primary Care Provider] - Activity Restrictions/Additional Instructions: As discussed clear liquid/bland diet over the next 24 to 48 hours and increase as tolerated. Most cases of colitis are self-limited meaning they will improve on their own however if you do not seem to be improving over the next 1 to 2 days please initiate the Cipro and Flagyl antibiotics given to you today. Please follow-up with Dr. Gupta this week for reevaluation. You may return to the emergency department at anytime for worsening abdominal pain, bloody vomit or bloody stools, fevers, or any other concerns you may have. Discharge Date/Time: 07/24/20 22:54 Coding Level of Care Code ED Emulsion Operator for Effie Fwmariah Exam Comprehensive
[2020-07-24 19:41] LABS: Basophils % 0.2 %; Eosinophils # 0.1 10^3/uL (0.0-0.8); Eosinophils % 0.7 %; Hematocrit 43.9 % (42.0-52.0); Hemoglobin 14.4 g/dL (11.7-16.6); Lymphocytes # 1.6 10^3/uL (0.8-4.8); Lymphocytes % 14.3 %; Mean Corpuscular HGB Conc 32.8 g/dL (30.0-36.0); Mean Corpuscular Hemoglobin 27.9 pg (28.0-34.0); Mean Corpuscular Volume 84.9 fL (80-94); Mean Platelet Volume 10.2 fL (7.4-10.4); Monocytes # 1.1 10^3/uL (0.2-0.9); Monocytes % 9.6 %; Neutrophils # 8.44 10^3/uL (1.8-7.7); Neutrophils % 74.8 %; Nucleated Red Blood Cells % 0 %; Platelet Count 230 10^3/cmm (130-400); Red Blood Count 5.17 10^6/uL (4.1-5.3); Red Cell Distribution Width 13.6 % (12.1-15.1); White Blood Count 11.3 10^3/uL (4.0-10.0)
--- NOTE | 2020-07-24 19:56 | PC.NURSE ---
pt reports that he does not have a ride and cannot obtain one morphine held.
[2020-07-24 19:59] VITALS: PULSE 86; RESP 20; O2SAT 96
[2020-07-24] MEDS: sodium chloride 0.9% 1,000 ML 999 ML IV (20:00)
[2020-07-24] MEDS: ondansetron 2 mg/ML SDV 2 mL 4 MG IVP (20:00)
[2020-07-24 20:03] LABS: Troponin(5th) Baseline 7 ng/L (0-15)
[2020-07-24 20:04] LABS: Slide Review Slide Review Perform
[2020-07-24 20:11] LABS: Alanine Aminotransferase 25 U/L (0-41); Albumin Level 4.3 g/dL (3.5-5.2); Alkaline Phosphatase 80 IU/L (40-130); Aspartate Amino Transferase 19 U/L (0-40); Blood Urea Nitrogen 9 mg/dL (6-20); Calcium 9.1 mg/dL (8.5-10.5); Carbon Dioxide 24 mmol/L (22-29); Chloride 100 mmol/L (98-107); Globulin 3.7 g/dL (1.3-4.6); Glomerular Filtration Rate 99.6 mL/min (90-130); Glucose 114 mg/dL (65-115); Lipase 21 U/L (13-60); NT Pro B Type Natriuretic Pept 14 pg/mL (0-125); Osmolality Calculated 284 mOsm/kg (285-295); Sodium 137 mmol/L (136-145); Total Bilirubin 0.2 mg/dL (0.15-1.2)
[2020-07-24 20:16] LABS: Anion Gap 16.5 (5-19); Potassium 3.5 mmol/L (3.5-5.1)
--- NOTE | 2020-07-24 20:49 | CTR_ITS ---
PROCEDURE INFORMATION: Exam: CT Abdomen And Pelvis With Contrast Exam date and time: 07/24/2020 10:11 PM Age: 55 years old Clinical indication: Other: Diarrhea; Abdominal pain; Generalized; Additional info: Abdominal pain, vomiting, diarrhea TECHNIQUE: Imaging protocol: Computed tomography of the abdomen and pelvis with intravenous contrast. Radiation optimization: All CT scans at this facility use at least one of these dose optimization techniques: automated exposure control; mA and/or kV adjustment per patient size (includes targeted exams where dose is matched to clinical indication); or iterative reconstruction. Contrast material: OMNI 300; Contrast volume: 95 ml; Contrast route: INTRAVENOUS (IV); COMPARISON: No relevant prior studies available. RADIATION DOSE METRICS: Total DLP (mGy-cm): 1714.69 FINDINGS: Liver: Normal. No mass. Gallbladder and bile ducts: The gallbladder appears mildly contracted. Pancreas: Normal. No ductal dilation. Spleen: Punctate calcifications are seen within the spleen compatible with calcified granulomas. Adrenals: Normal. No mass. Kidneys and ureters: Normal. No hydronephrosis. Stomach and bowel: There is some subtle haziness seen adjacent to the proximal ascending colon, findings that could represent subtle inflammatory changes and mild colitis. Appendix: The appendix is visualized and is normal in configuration. Intraperitoneal space: Unremarkable. No free air. No significant fluid collection. Vasculature: Calcifications are seen within the thoracic and abdominal aorta, iliac arteries and femoral arteries bilaterally the. Lymph nodes: Unremarkable. No enlarged lymph nodes. Bladder: Unremarkable as visualized. Reproductive: Unremarkable as visualized. Bones/joints: Unremarkable. No acute fracture. Soft tissues: There is a small umbilical hernia present containing fat. There is a small left inguinal hernia containing fat. CT/CT abdomen pelvis w con* [id number] IMPRESSION: 1. Subtle haziness seen adjacent to the proximal ascending colon could represent mild inflammatory changes and mild colitis. 2. Normal appendix 3. Small left inguinal hernia containing fat 4. Small umbilical hernia containing fat Radiation Dose CTDIVOL = (mGy): DLP = 1714.69 (mGy-cm)
--- NOTE | 2020-07-24 21:21 | ECG_ITS ---
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1965 Requested By: Victoria Stephen Order Number: [id number] Reading MD: Measurements Intervals [place] Rate: 74 P: 11 MI: 176 QRS: -5 QRSD: 110 T: -7 QT: 401 QTc: 447 Interpretive Statements SINUS RHYTHM MODERATE VOLTAGE CRITERIA FOR LVH, CONSIDER NORMAL VARIANT [MEETS CRITERIA IN ONE OF: R(aVL), S(V1), R(V5), R(V5/V6)+S(V1)] INFERIOR MYOCARDIAL INFARCTION , OF INDETERMINATE AGE [40+ ms Q WAVE AND/OR ST/T ABNORMALITY IN II/aVF] Compared to ECG 07/24/2020 20:09:10 Myocardial infarct finding now present [email or web address]
[2020-07-24 22:00] LABS: Troponin 5 2HR 6.96 ng/L (0-15)
[2020-07-24] MEDS: iohexol 300 mg/mL 100 mL Btl IV (22:12)
[2020-07-24 22:21] LABS: Troponin 5 2HR Delta -0.04 ABS# (0-10)
[2020-07-24 22:53] VITALS: BP 143/87; PULSE 76; RESP 16; O2SAT 98
== END 2020-07-24 22:54 | disposition home or self-care (01) ==
PROVIDERS: Emergency Medicine; Emergency Provider Physician Assistant; PCP Electrodiagnostic Medicine
DX: K52.9 Noninfective gastroenteritis and colitis, unspecified (principal); Z79.02 Long term (current) use of antithrombotics/antiplatelets; Z79.01 Long term (current) use of anticoagulants; I25.10 Atherosclerotic heart disease of native coronary artery without angina pectoris; I11.0 Hypertensive heart disease with heart failure; I50.9 Heart failure, unspecified; I25.2 Old myocardial infarction; F17.210 Nicotine dependence, cigarettes, uncomplicated
CPT/HCPCS: 12345; 36415; 71045; 74177; 80053; 83690; 83880; 84484; 85025; 93005; 96360; 96375; 99283; 99284; J2405; J7030; Q9967

== ENCOUNTER 2020-10-17 17:48 | Inpatient (IN) | payer BC, SELFPAY ==
--- NOTE | 2020-10-17 17:50 | ECG_ITS ---
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 Measurements Intervals [place] Rate: 85 P: 31 MS: 160 QRS: 11 QRSD: 93 T: 49 QT: 378 QTc: 452 Interpretive Statements SINUS RHYTHM Compared to ECG 07/24/2020 20:09:10 No significant changes Electronically Signed On 10-18-2020 19:36:51 LAB NURSE by Jyotsna Berkowitz M.D. [id number]
--- NOTE | 2020-10-17 17:50 | XR_ITS ---
WS: [id number] XR chest 1V portable [id number] REASON FOR EXAM: cp FINDINGS: The chest is unchanged compared to 07/24/2020. The heart and mediastinum are within normal limits. Calcified granulomatous changes in both lungs. No active pulmonary parenchymal or pleural disease. Mild degenerative change in the mid and lower thoracic spine. XR/XR chest 1V portable [id number] IMPRESSION: No acute chest abnormality.
[2020-10-17 17:58] VITALS: BP 120/63; PULSE 70; RESP 16; TEMP 37; O2SAT 96; BMI 39.5
--- NOTE | 2020-10-17 18:12 | W.ED.CHESTPA ---
HPI - Chest Pain General: Chief Complaint: Chest Pain Stated Complaint: chest pain Time Seen by Provider: 10/17/20 18:01 History of Present Illness: HPI narrative: .55-year-old male with a known history of coronary disease. He began having chest pains at night around noon can wax and wane he took a sublingual nitro did make it better and later on while he was sitting and started getting worse again late afternoon that to the point where his pain 6 out of 10 with radiation to his back he got short of breath but not diaphoretic, with another 2 sublingual nitros he reports his pain is now at a 2 out of 10. He has known history of heart disease previously has had angiography with stenting his last cardiac evaluation was approximately 2 years ago. MD complaint: chest pain Pertinent past history: coronary artery disease Onset (ago): hour(s) Timing of current episode: episodic Prior episodes: Yes Onset: during rest Pain location: substernal Pain radiation: back Severity: moderate Pain scale (0-10): 6 Quality: sharp and similar to prior [place] Relieving factors: nitroglycerin Exacerbating factors: nothing Associated symptoms: Reports dyspnea; Deny abdominal pain, diaphoresis, fever(s), leg edema, nausea, palpitations, sense of impending doom, syncope or vomiting Treatment prior to arrival: nitroglycerin Review of Systems Const: Denies: fever(s) or diaphoresis Card: Denies: palpitations or syncope Resp: Reports: dyspnea GI: Denies: abdominal pain, nausea or vomiting PFS ED PFSH: Medical History (Updated 10/17/20 @ 19:35 by Bob Otto DO) Angina pectoris CAD (coronary artery disease) CHF (congestive heart failure) Fever Hiatal hernia History of left heart catheterization HTN (hypertension) Myocardial infarction Obesity Penetrating head injury Pulmonary emboli Viral syndrome Surgical History History of heart artery stent S/P neurological surgery Family History Father Heart disease Alzheimer's dementia Social History Smoking and tobacco status: current every day smoker cigarettes Packs smoked per day: 1 Years cigarettes smoked: 45 Quit status (tobacco): has tried quititng Alcohol intake: current Alcohol intake frequency: holidays/special occasions only Lives independently: Yes Household members: significant other Marital status: Life Partner Current occupational status: employed History of recent travel: No Current gender identity: Male Physical Exam Const: COMMON NORMALS: no acute distress GENERAL APPEARANCE: cooperative and comfortable ORIENTATION/CONSCIOUSNESS: Yes awake, Yes oriented to person, Yes oriented to place and Yes oriented to time HENMT: COMMON NORMALS: normocephalic, atraumatic and hearing grossly normal bilaterally HEAD & SCALP: normocephalic and atraumatic Eye: COMMON NORMALS: Equal, round and reactive pupils present, EOMs intact bilaterally, conjunctivae normal and no scleral icterus CONJUNCTIVA: Yes conjunctivae normal PUPIL: Yes Equal, round and reactive pupils present Neck/C-Spine: COMMON NORMALS: no JVD Resp: COMMON NORMALS: normal respiratory effort, No retractions, No use of accessory muscles and clear to auscultation bilaterally AUSCULTATION: clear to auscultation bilaterally Cardio: COMMON NORMALS: no JVD, regular rate, regular rhythm and No murmurs present (Cardio) RATE: regular rate RHYTHM: regular rhythm GI: COMMON NORMALS: Soft to palpation and No hepatosplenomegaly present AUSCULTATION: Yes normoactive bowel sounds PALPATION: Yes Soft to palpation, No Tenderness to palpation present (GI), No Guarding due to palpation present (GI) and Yes No hepatosplenomegaly present Extremity: COMMON NORMALS: normal to inspection, capillary refill normal, no clubbing, cyanosis or edema, no calf tenderness and no pedal edema Neuro: SENSORIUM/ORIENTATION: Yes oriented to person, Yes oriented to place and Yes oriented to time Skin: COMMON NORMALS: no rashes or lesions noted GENERAL SKIN EXAM: no rashes or lesions noted Course Vital Signs: Vital signs: Vital Signs Temperature 98.6 F 10/17/20 17:58 Pulse Rate 77 10/17/20 19:08 Respiratory Rate 18 10/17/20 19:08 Blood Pressure 132/66 10/17/20 19:08 Pulse Oximetry 97 10/17/20 19:08 MDM - Chest Pain MDM Narrative: Medical decision making narrative: Pain resolved after topical Nitropaste. Was also given Lovenox and aspirin will admit to the hospitalist consult cardiology already discussed with cardiology orders are written. Lab Data: Labs: Lab Results 10/17/20 10/17/20 10/17/20 Range/Units 18:16 18:16 18:16 WBC 8.3 (4.0-10.0) 10^3/ uL RBC 4.98 (4.1-5.3) 10^6/u L Hgb 13.5 (11.7-16.6) g/dL Hct 43.0 (42.0-52.0) % MCV 86.3 (80-94) fL MCH 27.1 L (28.0-34.0) pg MCHC 31.4 (30.0-36.0) g/dL RDW 13.6 (12.1-15.1) % Plt Count 222 (130-400) 10^3/c mm MPV 9.8 (7.4-10.4) fL Neut % (Auto) 65.0 % Lymph % (Auto) 24.7 % Cavalier % (Auto) 8.2 % Eos % (Auto) 1.2 % Baso % (Auto) 0.5 % Neut # (Auto) 5.37 (1.8-7.7) 10^3/u L Lymph # (Auto) 2.0 (0.8-4.8) 10^3/u L Cavalier # (Auto) 0.7 (0.2-0.9) 10^3/u L Eos # (Auto) 0.1 (0.0-0.8) 10^3/u L Baso # (Auto) 0.0 (0.0-0.1) 10^3/u L Nucleated RBC % (a uto) 0 % Nucleated RBCs # 0.0 /100WBC Sodium 141 (136-145) mmol/L Chloride 104 (98-107) mmol/L Carbon Dioxide 28 (22-29) mmol/L BUN 12 (6-20) mg/dL Creatinine 0.8 (0.7-1.2) mg/dL GFR Calculation 99.6 (90-130) mL/min Glucose 96 (65-115) mg/dL Calculated Osmolal ity 292 (285-295) mOsm/k g Calcium 9.1 (8.5-10.5) mg/dL Total Bilirubin 0.2 (0.15-1.2) mg/dL AST 20 (0-40) U/L ALT 25 (0-41) U/L Alkaline Phosphata se 69 (40-130) IU/L Troponin T Baselin e 6 (0-15) ng/L Total Protein 6.8 (6.6-8.7) g/dL Albumin 4.3 (3.5-5.2) g/dL Globulin 2.5 (1.3-4.6) g/dL Discharge Plan Discharge Patient Disposition: Placed in Observation Clinical Impression: Unstable angina pectoris, HTN (hypertension), CAD (coronary artery disease), ADRIAN (obstructive sleep apnea) Condition: Stable Prescriptions: No Action clopidogrel [Plavix] 75 mg tablet 75 mg PO DAILY@07 RF: 0 loratadine 10 mg tablet 10 mg PO DAILY@699 RF: 0 famotidine 40 mg tablet 40 mg PO DAILY@699 RF: 0 tiotropium bromide [Spiriva Respimat] 1.25 mcg/actuation mist See Rx Instructions .ROUTE .COMPLEX Qty: 4 RF: 3 magnesium oxide [MagOx] 400 mg (241.3 mg magnesium) Tablet 400 mg PO DAILY@07 RF: 0 nitroglycerin [Nitrostat] 0.4 mg Tablet, Sublingual 0.4 mg SUBLINGUAL Q5M PRN (Reason: Chest Pain) RF: 0 lisinopril 2.5 mg Tablet 2.5 mg PO DAILY RF: 0 albuterol sulfate 90 mcg/actuation HFA aerosol inhaler 1 inh INHALATION Q6H PRN (Reason: shortness of breath or wheezing) Qty: 6.7 RF: 0 sildenafil (pulm.hypertension) 20 mg tablet See Rx Instructions .ROUTE .COMPLEX RF: 0 bumetanide 2 mg tablet 2 mg PO BID@ RF: 0 spironolactone 25 mg tablet 25 mg PO DAILY@699 RF: 0 Crestor 40 mg tablet 40 mg PO BEDTIME@1999 RF: 0 Eliquis 5 mg tablet 5 mg PO BID@ RF: 0 potassium chloride 20 mEq tablet extended release 40 meq PO BID@699,1999 RF: 0 Referrals: Juma Gupta DO [Primary Care Provider] - Coding Level of Care Code ED Grain Packer for Effie Ash
[2020-10-17 18:24] LABS: Basophils % 0.5 %; Eosinophils # 0.1 10^3/uL (0.0-0.8); Eosinophils % 1.2 %; Hemoglobin 13.5 g/dL (11.7-16.6); Lymphocytes % 24.7 %; Mean Corpuscular HGB Conc 31.4 g/dL (30.0-36.0); Mean Corpuscular Hemoglobin 27.1 pg (28.0-34.0); Mean Corpuscular Volume 86.3 fL (80-94); Mean Platelet Volume 9.8 fL (7.4-10.4); Monocytes # 0.7 10^3/uL (0.2-0.9); Monocytes % 8.2 %; Neutrophils # 5.37 10^3/uL (1.8-7.7); Nucleated Red Blood Cells % 0 %; Platelet Count 222 10^3/cmm (130-400); Red Blood Count 4.98 10^6/uL (4.1-5.3); Red Cell Distribution Width 13.6 % (12.1-15.1); White Blood Count 8.3 10^3/uL (4.0-10.0)
[2020-10-17] MEDS: nitroglycerin 1 gm/inch oint Pkt 0.5 INCH TOPICAL (18:38)
[2020-10-17] MEDS: aspirin 81 mg Chew Tablet 324 MG PO (18:42)
[2020-10-17] MEDS: enoxaparin 120 mg/0.8 mL Syringe 110 MG SUBCUT (18:42)
[2020-10-17 19:08] VITALS: BP 132/66; PULSE 77; RESP 18; O2SAT 97
[2020-10-17 19:21] LABS: Alanine Aminotransferase 25 U/L (0-41); Albumin Level 4.3 g/dL (3.5-5.2); Alkaline Phosphatase 69 IU/L (40-130); Aspartate Amino Transferase 20 U/L (0-40); Blood Urea Nitrogen 12 mg/dL (6-20); Calcium 9.1 mg/dL (8.5-10.5); Carbon Dioxide 28 mmol/L (22-29); Chloride 104 mmol/L (98-107); Creatinine Clr Calc Pharmacy 127.1133; Globulin 2.5 g/dL (1.3-4.6); Glomerular Filtration Rate 99.6 mL/min (90-130); Glucose 96 mg/dL (65-115); Osmolality Calculated 292 mOsm/kg (285-295); Sodium 141 mmol/L (136-145); Total Bilirubin 0.2 mg/dL (0.15-1.2); Total Protein 6.8 g/dL (6.6-8.7)
[2020-10-17 19:23] LABS: Troponin(5th) Baseline 6 ng/L (0-15)
--- NOTE | 2020-10-17 19:50 | ECG_ITS ---
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 Measurements Intervals [place] Rate: 58 P: 72 ID: 165 QRS: 27 QRSD: 96 T: 18 QT: 439 QTc: 434 Interpretive Statements SINUS BRADYCARDIA MODERATE ST DEPRESSION [0.05+ mV ST DEPRESSION] Compared to ECG 10/17/2020 17:54:05 ST (T wave) deviation now present Sinus rhythm no longer present Electronically Signed On 10-18-2020 20:03:18 METAPHYSICIST by Jyotsna Berkowitz M.D. [id number] f
--- NOTE | 2020-10-17 19:50 | PM.HP ---
Providers/Chief Complaint Admitting Physician: Quirino Puri MD Primary Care Provider: Juma Gupta DO Chief Complaint: chest pain History of Present Illness Fransico Osborn is a 55 year old male with established coronary disease status post 2 stents in RCA, diastolic congestive heart failure, sleep apnea, alcohol abuse, OR 2010, CVA, PE currently on Eliquis follows up with Dr. Cooper presented today with chief complaint of chest pain. Patient is stating that around 7 AM he started experiencing left shoulder blade pain with some cramps graded 2/10, he carried on with his day to avoid coming to the hospital because of the pandemic until 5 PM when he started experiencing worsening of pain, at this time he was feeling substernal chest pain which she is describing as a brick sitting on his chest similar to the one when he had OR, he noticed some shortness of breath without any nausea, vomiting, this pain was radiating towards left arm, he is also describing some numbness of his digits. This time pain was 8/10, he took 2 nitroglycerin 10 minutes apart which eased up his pain and he came to the hospital. Diagnostics in the ER revealed systolic blood pressure in the 130s to 140s, half inch Nitropaste was used to ease his pain, first troponin , EKG showing sinus rhythm with old changes, no new ischemic or infarctive changes seen, at the time of my evaluation he is chest pain-free he was asking for a sandwich In the ER he received Lovenox 110 mg therapeutic dose, loading dose of aspirin. Review of Systems Const: Denies: fever(s) or chills Eyes: Denies: change in vision ENMT: Denies: throat pain Card: Reports: chest pain, swelling of feet/ankles and dyspnea on exertion; Denies: palpitations Resp: Reports: dyspnea GI: Denies: abdominal pain : Denies: flank pain Musc: Reports: extremity swelling; Denies: neck pain Skin/Breast: Reports: lesions Neuro: Denies: headache(s) Psych: Denies: anxiety Endo: Denies: polyuria Mateusz/Lymph: Denies: easy bruising All/Imm: Denies: urticaria Medications/Allergies Home Medications Medication Instructions Recorded Confirmed Last Taken Type lisinopril 2.5 mg PO DAILY 11/22/19 10/17/20 11/24/19 History magnesium oxide [MagOx] 400 mg PO DAILY@0700 11/22/19 10/17/20 10/17/20 History nitroglycerin [Nitrostat] 0.4 mg SUBLINGUAL Q5M PRN 11/22/19 10/17/20 10/17/20 History albuterol sulfate 1 inh INHALATION Q6H PRN #6.7 gm 11/23/19 10/17/20 11/24/19 Rx clopidogrel 75 mg tablet 75 mg PO DAILY@0700 12/18/19 10/17/20 10/17/20 History loratadine 10 mg tablet 10 mg PO DAILY@0700 12/18/19 10/17/20 10/17/20 History famotidine 40 mg tablet 40 mg PO DAILY@0700 tab 06/14/20 10/17/20 10/17/20 History tiotropium bromide 1.25 See Rx Instructions .ROUTE 07/12/20 10/17/20 Unknown Rx mcg/actuation mist for inhalation .COMPLEX #4 gm Crestor 40 mg PO BEDTIME@199910/17/20 10/17/20 10/16/20 History apixaban [Eliquis] 5 mg PO BID@10/17/20 10/17/20 10/17/20 History bumetanide 2 mg PO BID@10/17/20 10/17/20 10/17/20 History potassium chloride 40 meq PO BID@07,199910/17/20 10/17/20 10/17/20 History sildenafil (pulm.hypertension) See Rx Instructions .ROUTE .COMPLEX 10/17/20 10/17/20 Unknown History spironolactone 25 mg PO DAILY@0700 10/17/20 10/17/20 10/17/20 History Allergies Allergy/AdvReac Type Severity Reaction Status Date / Time No Known Allergies Allergy Verified 10/17/20 20:20 PFSH Acute PFSH: Medical History Angina pectoris CAD (coronary artery disease) CHF (congestive heart failure) Fever Hiatal hernia History of left heart catheterization HTN (hypertension) Myocardial infarction Obesity Penetrating head injury Pulmonary emboli Viral syndrome Surgical History History of heart artery stent S/P neurological surgery Family History Father Heart disease Alzheimer's dementia Social History Smoking and tobacco status: current every day smoker cigarettes Packs smoked per day: 1 Years cigarettes smoked: 45 Quit status (tobacco): has tried quititng Alcohol intake: current Alcohol intake frequency: holidays/special occasions only Lives independently: Yes Household members: significant other Marital status: Life Partner Current occupational status: employed History of recent travel: No Current gender identity: Male Vitals/I&O/Wt Last Vital Signs Temp 98.6 F 10/17/20 17:58 Pulse 77 10/17/20 19:08 Resp 18 10/17/20 19:08 BP 132/66 10/17/20 19:08 Pulse Ox 97 10/17/20 19:08 Weight last 48 hrs Weight 117.934 kg Physical Exam Narrative: EXAM NARRATIVE: Morbidly obese male sitting comfortably in his bed in semi-Blankenship position currently has Nitropaste on left side of his chest 0.5 inches none complaining of active chest pain or shortness of breath Saturating well on room air, normotensive Appears well-hydrated Very cooperative and pleasant during my evaluation S1, S2 no murmur appreciated, looks euvolemic however has 1+ pitting edema bilateral lower extremities No acute respiratory distress Abdomen soft distended, visceral obesity, umbilical hernia nontender Appropriate mood and affect No ischemia gangrene or ulcer of lower extremities EOMI, PERRLA GCS 15 no neurological deficit appreciated Data : 10/17/20 18:16 10/17/20 18:16 Other data: Cardiac catheterization 11/01/2018 diagnostic Cath Status: Urgent Diagnostic Findings LM has 0% stenosis. LAD has 0% stenosis. RCA has 0% stenosis. Mid Circumflex Coronary Artery: Moderate 55% stenosis, TEE: 3 flow, FFR performed: ratio is 0.95. Coronary angiography shows right dominance. Conclusions There is moderate coronary artery disease with one vessel disease. FFR: After equalizing the distal and proximal pressure of FFR wire proximal to the lesion, mid LCx lesion was crossed with FFR wire. IV adenosine at rate of 140 mcg/min was started. Patient did not compliant of any symptoms, at then end of two minutes FFR was recorded as 0.95, which is not significant . Recommendations Continue current medical management and risk factor modification. Diagnostic RX Recommendation: medical therapy and/or counselin Echo 2018 CONCLUSIONS 1. This is a limited study with echo contrast. 2. Normal left ventricular size and systolic function. Left ventricular ejection fraction estimated at 64%. There is no regional wall motion abnormality. 3. Right ventricle grossly appears to be of normal size with normal systolic function. 4. When compared to prior echocardiogram dated , there is no significant change A&P Assessment and plan (1) Unstable angina pectoris: Unstable angina with established coronary artery disease Currently chest pain-free on Nitropaste, no active headache, normal hemodynamics EKG is not showing ischemic or infarctive changes, troponin 6 Cardiology is consulted N.p.o. after midnight most likely he will benefit from another angiogram, review of previous records revealed negative stress test 2017, EF 60%, bilateral carotid artery atherosclerotic plaque less than 50% For now I would keep him on therapeutic dose of Lovenox, does not meet criteria for ACS Status: Acute Additional A&P Information Obstructive sleep apnea: Auto CPAP overnight DVT/pulmonary embolism: I will switch his Eliquis to therapeutic dose of Lovenox for now, he is following up with it service continuity supervisor Dr. Arellano Morbid obesity: Currently following up with bariatric clinic Diastolic congestive heart failure without acute exacerbation I would continue his home regimen for now DVT prophylaxis not indicated due to therapeutic dose of Lovenox N.p.o. after midnight Full code Attestations Medical Necessity Statement*: Patient will most likely need angiogram therefore anticipating stay in the hospital course more than 2 midnights to rule out etiology for recurrent unstable angina symptoms has established coronary disease, however this plan might change depending on cardiology's evaluation Time Spent in Patient Care: Greater than 35 minutes (>than 50% of time spent in counselling and/or direct pt care on unit). 50mins Coding Level of Care Code Acute Sausage Stringer for Effie Ash Diagnoses Unstable angina pectoris I20.0
[2020-10-17 19:52] VITALS: BP 131/61; PULSE 67; RESP 18; O2SAT 96
[2020-10-17 19:55] VITALS: BP 113/92; PULSE 87; RESP 26; TEMP 36.6; O2SAT 90
[2020-10-17 20:00] VITALS: PULSE 74
[2020-10-17 20:02] LABS: Anion Gap 13.3 (5-19); Potassium 4.3 mmol/L (3.5-5.1)
[2020-10-17 20:17] LABS: Troponin 5 2HR 6.52 ng/L (0-15); Troponin 5 2HR Delta 0.52 ABS# (0-10)
--- NOTE | 2020-10-17 20:21 | PC.NURSE ---
Patient arrived to the floor from the ED after report was received via phone. Patient is alert and oriented and ambulatory. Patient has been oriented to his room and has call light within reach. Patient states, I am a DNR. Patient was educated on all factors of full code, limited resuscitation, and AND/DNR. Patient verbalized understanding and stated if it's my time to go, let me go. Dr. Puri notified.
[2020-10-17 21:37] VITALS: PULSE 72
--- NOTE | 2020-10-17 23:50 | ECG_ITS ---
[facility] Test Date: 2020-10-18 Pat Name: Fransico Osborn Department: Room: 102 Gender: Male Spring Layer: : 1965 Requested By: Leon Ibrahim Order Number: [id number] Michelle MD: Jyotsna Berkowitz M.D. Measurements Intervals [place] Rate: 58 P: 72 IN: 165 QRS: 27 QRSD: 96 T: 18 QT: 439 QTc: 434 Interpretive Statements SINUS BRADYCARDIA MODERATE ST DEPRESSION [0.05+ mV ST DEPRESSION] Compared to ECG 10/17/2020 17:54:05 ST (T wave) deviation now present Sinus rhythm no longer present Electronically Signed On 10-18-2020 20:04:03 ORTHOTIC ASSISTANT by Jyotsna Berkowitz M.D. [id number]
[2020-10-17 23:57] LABS: Troponin 5 6HR Delta 0 ng/L (0-12)
[2020-10-18] VITALS (20 sets, daily range): BP systolic 100–169; BP diastolic 58–103; PULSE 54–88; RESP 15–24; TEMP 36.3–36.7; O2SAT 94–96
--- NOTE | 2020-10-18 00:17 | PC.NURSE ---
Patient does not have any complaints at this time. Will monitor.
--- NOTE | 2020-10-18 03:54 | PC.NURSE ---
states that he asked patient about code status and that the patient wanted to remain a full code.
[2020-10-18 04:06] LABS: Basophils % 0.6 %; Eosinophils # 0.2 10^3/uL (0.0-0.8); Eosinophils % 2.1 %; Hematocrit 40.7 % (42.0-52.0); Hemoglobin 12.7 g/dL (11.7-16.6); Lymphocytes # 2.3 10^3/uL (0.8-4.8); Lymphocytes % 32.9 %; Mean Corpuscular HGB Conc 31.2 g/dL (30.0-36.0); Mean Corpuscular Volume 86.6 fL (80-94); Mean Platelet Volume 10.1 fL (7.4-10.4); Monocytes # 0.8 10^3/uL (0.2-0.9); Monocytes % 10.8 %; Neutrophils # 3.76 10^3/uL (1.8-7.7); Neutrophils % 53.2 %; Nucleated Red Blood Cells % 0 %; Platelet Count 209 10^3/cmm (130-400); Red Cell Distribution Width 13.8 % (12.1-15.1); White Blood Count 7.1 10^3/uL (4.0-10.0)
[2020-10-18 04:27] LABS: Anion Gap 10.9 (5-19); Blood Urea Nitrogen 15 mg/dL (6-20); Calcium 9.5 mg/dL (8.5-10.5); Carbon Dioxide 29 mmol/L (22-29); Chloride 104 mmol/L (98-107); Creatinine Clr Calc Pharmacy 127.1133; Glomerular Filtration Rate 99.6 mL/min (90-130); Glucose 108 mg/dL (65-115); Osmolality Calculated 291 mOsm/kg (285-295); Potassium 3.9 mmol/L (3.5-5.1); Sodium 140 mmol/L (136-145)
[2020-10-18] MEDS: famotidine 20 mg Tablet 40 MG PO (06:12)
[2020-10-18] MEDS: clopidogrel 75 mg Tablet PO (06:13)
--- NOTE | 2020-10-18 06:39 | P.CONIM_ITS ---
Providers/Reason For Consult Consulting Physican/Specialty*: Dr. Berkowitz, Cardiology Reason for Consult*: Chest pain concern for unstable angina Attending Physician: Quirino Puri MD Primary Care Provider: Juma Gupta DO History of Present Illness History of Present Illness Fransico Osborn is a 55 year old male with PMHx of HTN, dyslipidemia, h/o CVA, CAD with h/o [place] in 10/2017 probably s/p two stents in RCA, h/o diastolic CHF, ADRIAN not on CPAP but home O2 at night PRN, h/o tobacco and alcohol abuse and history of unprovoked pulmonary embolism on Eliquis in 11/2019. He started having chest pain 12/14 that started in his left shoulder blade and lasted from 6 am till about 5 pm. At 5 pm the pain became vice like was pretty bad and went to his left shoulder, left arm and retrosternal in location. He took nitroglycerine without much relief and hence decided to come to the hospital. EKG on arrival showed sinus rhythm, normal axis. Poor anterior R wave progression and non specific ST depression. Poor baseline on EKG2 and 3. No significant ST-T wave changes. Chest pain similar to that in 10/2017 with NJ though less intense. He denies any associated SOB, diaphoresis, N/V, URI/UTI like symptoms. No orthopnea, PND, leg swelling. Last dose of Eliquis yesterday morning. Review of Systems Const: Denies: fever(s), chills, change in appetite, change in weight, fatigue or malaise Eyes: Denies: change in vision or eye discharge ENMT: Denies: throat pain, swelling of lips/tongue, oral sores, bleeding gums, nasal congestion, epistaxis or post nasal drip Card: Denies: chest pain, palpitations, irregular heart rhythm, edema, lightheadedness, syncope, dyspnea on exertion, orthopnea or leg pain with exertion Resp: Denies: dyspnea, productive cough, wheezing or hemoptysis GI: Denies: abdominal pain, nausea, vomiting, hematemesis, heartburn, diarrhea, constipation, change in bowel habits, hematochezia or melena : Denies: dysuria, oliguria, hematuria, scrotal swelling or erectile dysfunction Musc: Denies: back pain, extremity swelling, joint pain or muscle weakness Skin/Breast: Denies: rash, erythema, new lesions or change in hair Neuro: Denies: numbness in extremities, weakness in extremities, lack of coordination, difficulty walking, dizziness, vertigo or confusion Psych: Denies: anxiety, depression, irritability, suicidal ideation or homicidal ideation Endo: Denies: tired all the time, cold intolerance or heat intolerance Mateusz/Lymph: Denies: easy bruising, easy bleeding, petechiae or purpura All/Imm: Denies: throat swelling, tongue swelling or acute wheezing Meds/Allergies Home Medications and Allergies Home Medications Medication Instructions Recorded Confirmed Last Taken Type lisinopril 2.5 mg PO DAILY 11/22/19 10/17/20 11/24/19 History magnesium oxide [MagOx] 400 mg PO DAILY@0700 11/22/19 10/17/20 10/17/20 History nitroglycerin [Nitrostat] 0.4 mg SUBLINGUAL Q5M PRN 11/22/19 10/17/20 10/17/20 History albuterol sulfate 1 inh INHALATION Q6H PRN #6.7 gm 11/23/19 10/17/20 11/24/19 Rx clopidogrel 75 mg tablet 75 mg PO DAILY@0700 12/18/19 10/17/20 10/17/20 History loratadine 10 mg tablet 10 mg PO DAILY@0700 12/18/19 10/17/20 10/17/20 History famotidine 40 mg tablet 40 mg PO DAILY@0700 tab 06/14/20 10/17/20 10/17/20 History tiotropium bromide 1.25 See Rx Instructions .ROUTE 07/12/20 10/17/20 Unknown Rx mcg/actuation mist for inhalation .COMPLEX #4 gm Crestor 40 mg PO BEDTIME@199910/17/20 10/17/20 10/16/20 History Eliquis 5 mg PO BID@10/17/20 10/17/20 10/17/20 History bumetanide 2 mg PO BID@10/17/20 10/17/20 10/17/20 History potassium chloride 40 meq PO BID@0700,199910/17/20 10/17/20 10/17/20 History sildenafil (pulm.hypertension) See Rx Instructions .ROUTE .COMPLEX 10/17/20 10/17/20 Unknown History spironolactone 25 mg PO DAILY@0700 10/17/20 10/17/20 10/17/20 History Allergies Allergy/AdvReac Type Severity Reaction Status Date / Time No Known Allergies Allergy Verified 10/17/20 20:20 Current Medications Current Medications Generic Name Dose Route Start Last Admin Trade Name Carlos PRN Reason Stop Dose Admin Clopidogrel Bisulfate 75 mg 10/18/20 07:00 10/18/20 06:13 Clopidogrel 75 Mg Tablet PO 75 mg DAILY@0700 ZAHIRA Administration Famotidine 40 mg 10/18/20 07:00 10/18/20 06:12 Famotidine 20 Mg Tablet PO 40 mg DAILY@0700 ZAHIRA Administration PFSH Acute PFSH: Medical History Angina pectoris CAD (coronary artery disease) CHF (congestive heart failure) Fever Hiatal hernia History of left heart catheterization HTN (hypertension) Myocardial infarction Obesity Penetrating head injury Pulmonary emboli Viral syndrome Surgical History History of heart artery stent S/P neurological surgery Family History Father Heart disease Alzheimer's dementia Social History Smoking and tobacco status: current every day smoker cigarettes Packs smoked per day: 1 Years cigarettes smoked: 45 Quit status (tobacco): has tried quititng Alcohol intake: current Alcohol intake frequency: holidays/special occasions on ly Lives independently: Yes Household members: significant other Marital status: Life Partner Current occupational status: employed History of recent travel: No Current gender identity: Male Vitals/I&O/Wt Last Vital Signs Temp 98 F 10/18/20 03:09 Pulse 54 L 10/18/20 05:04 Resp 15 10/18/20 03:09 BP 100/62 10/18/20 03:09 Pulse Ox 94 10/18/20 03:09 10/17/20 10/17/20 10/18/20 14:59 22:59 06:59 Intake Total 300 / 300 Balance 300 / 300 Weight last 48 hrs Weight 260 lb Physical Exam Const: COMMON NORMALS: no acute distress, patient oriented x3, alert and well nourished GENERAL APPEARANCE: cooperative, comfortable, well kempt and well developed NUTRITIONAL APPEARANCE: obese ORIENTATION/CONSCIOUSNESS: Yes oriented to person, Yes oriented to place and Yes oriented to time HENMT: COMMON NORMALS: normocephalic, atraumatic, hearing grossly normal bilaterally, external ears normal, Normal external nose present and oropharynx normal HEAD & SCALP: normocephalic and atraumatic FACE & SINUS: face symmetric NOSE: Normal external nose present EXTERNAL EAR: Yes external ears normal MOUTH: Normal oral and palatal mucosa present Eye: COMMON NORMALS: Equal, round and reactive pupils present, EOMs intact bilaterally and conjunctivae normal ALIGNMENT: Yes alignment normal CONJ UNCTIVA: Yes conjunctivae normal SCLERA: sclerae normal PUPIL: Yes Equal, round and reactive pupils present Neck/C-Spine: COMMON NORMALS: no lymphadenopathy, supple, no JVD and Thyroid normal; negative for No carotid bruits GENERAL: Yes trachea midline THYROID: Thyroid normal Lymph: LYMPHATIC: No no lymphadenopathy noted Chest: COMMONS NORMALS: normal inspection of the chest CHEST: Yes Symmetrical chest wall rise and No tenderness Resp: COMMON NORMALS: normal respiratory effort, No use of accessory muscles and clear to auscultation bilaterally AUSCULTATION: clear to auscultation bilaterally, no crackles, no rales, no rhonchi and no wheezes Cardio: COMMON NORMALS: no JVD, regular rate, regular rhythm, S1 normal heart sound present, S2 normal heart sound present and Peripheral pulses 2+ throughout; negative for No gallops present (Cardio) and negative for No clicks present (Cardio) JUGULAR VENOUS DISTENTION: no JVD PALPATION: normal PMI, no heave, no palpable S3, no palpable S4 and no thrill RATE: regular rate RHYTHM: regular rhythm HEART SOUNDS: S1 normal heart sound present, S2 normal heart sound present, no click, no gallops and no murmurs BRUITS: no abdomi nal aortic bruits and no carotid bruits PERIPHERAL PULSES: Peripheral pulses 2+ throughout GI: COMMON NORMALS: Normal to inspection, nondistended, normoactive bowel sounds present, Soft to palpation, non-tender and No hepatosplenomegaly present PALPATION: Yes Soft to palpation and Yes No hepatosplenomegaly present PERCUSSION: tympanic to percussion RECTAL EXAM: Yes deferred Back/Pelvis: LUMBAR SPINE/LOWER BACK: Yes normal to inspection Neuro: COMMON NORMALS: patient oriented x3, no focal motor deficits and gait normal SENSORIUM/ORIENTATION: Yes alert, Yes oriented to person, Yes oriented to place and Yes oriented to time CRANIAL NERVES: Yes CN normal except as noted Psych: COMMON NORMALS: Normal thought process present APPEARANCE: Yes well kempt MOOD & AFFECT: Yes euthymic mood THOUGHT PROCESS: Normal thought process present THOUGHT CONTENT: Yes Normal thought content present ATTENTION/CONCENTRATION: Yes attention grossly intact MEMORY/COGNITION: Yes memory grossly intact INSIGHT: Good insight present (Psych) JUDGEMENT: Good judgement present (Psych) Skin: COMMON NORMALS: no rashes or lesions noted GENERAL SKIN EXAM: no rashes or lesions noted Data Other Data: Attestation for Other Data: I personally reviewed and interpreted the following: Other data: # TTE (11/2017) CONCLUSIONS 1-Normal left ventricular cavity size. Normal left ventricular systolic function. Left ventricular ejection fraction is estimated at 60 %. Normal diastolic function. No regional wall motion abnormalities. 2-There is no pericardial effusion. 3-No significant valve abnormalities. 4-Pulmonary artery systolic pressure is within normal limits. 5-There are no prior echocardiogram studies to compare. # Carotid duplex (11/2017) CONCLUSIONS Right ICA stenosis <50%. Mild atheromatous plaque right carotid bulb/ICA. Left ICA stenosis <50%. Mild atheromatous plaque left carotid bulb/ICA. Normal antegrade Doppler flow noted in the right vertebral artery. Normal antegrade Doppler flow noted in the left vertebral artery. # Coronary angiogram (10/2018) Diagnostic Cath Status: Urgent Diagnostic Findings LM has 0% stenosis. LAD has 0% stenosis. RCA has 0% stenosis. Mid Circumflex Coronary Artery: Moderate 55% stenosis, TEE: 3 flow, FFR performed: ratio is 0.95. Coronary angiography shows right dominance. Conclusions There is moderate coronary artery disease with one vessel disease. FFR: After equalizing the distal and proximal pressure of FFR wire proximal to the lesion, mid LCx lesion was crossed with FFR wire. IV adenosine at rate of 140 mcg/min was started. Patient did not compliant of any symptoms, at then end of two minutes FFR was recorded as 0.95, which is not significant . Recommendations Continue current medical management and risk factor modification. # TTE (05/23/2018) CONCLUSIONS 1. This is a limited study with echo contrast. 2. Normal left ventricular size and systolic function. Left ventricular ejection fraction estimated at 64%. There is no regional wall motion abnormality. 3. Right ventricle grossly appears to be of normal size with normal systolic function. 4. When compared to prior echocardiogram dated , there is no significant change. CTA chest (11/2019) IMPRESSION: 1. Scattered filling defects within the segmental pulmonary arteries bilaterally consistent with acute pulmonary emboli. There are no large filling defects within the main or lobar pulmonary arteries. There is no CT evidence of right heart strain. 2. Findings which can be seen with prior granulomatous organism exposure. A&P Assessment and plan (1) Chest pain: Patient had moderate mid LCx lesion on last cath with patent RCA stents. -Negative troponins and no EKG changes. Patient continues to have intermittent chest pains since yesterday. -BP normal. -Case was discussed with Dr. 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 LHC was done via right radial access and he was found to have patent RCA stents and unchanged mid LCX 50-60% stenosis. Normal LM and LAD. Right radial access site has TR band in place. -Patient was happy with the findings and is eager to go home. He was advised on decreasing stress (caregiver of 90 yo relative). -Stable to be discharged. -f/u with Ms. Hamilton in [facility] in [address] Chavarria in 3 months. Status: Acute Qualifiers: Chest pain type: chest pain due to myocardial ischemia Ischemic chest pain type: unstable angina pectoris Qualified Code(s): I20.0 - Unstable angina (2) CAD (coronary artery disease): see above Status: Acute Qualifiers: Coronary Disease-Associated Artery/Lesion type: [place] artery [place] vs. transplanted heart: [place] heart Associated angina: with unstable angina Qualified Code(s): I25.110 - Atherosclerotic heart disease of [place] coronary artery with unstable angina pectoris (3) HTN (hypertension): well controlled. continue current medications. Status: Acute Qualifiers: Hypertension type: essential hypertension Qualified Code(s): I10 - Essential (primary) hypertension (4) Hyperlipidemia: f/u on lipid panel Status: Acute Qualifiers: Hyperlipidemia type: mixed hyperlipidemia Qualified Code(s): E78.2 - Mixed hyperlipidemia Additional A&P Information Obesity Class 2 Smoking: counselled on smoking cessation h/o HFpEF ADRIAN non complaint to CPAP H/O alcohol abuse Thank you for allowing me to participate in patient's care. Please feel free to call with questions or concerns. Consult Attestations Medical Necessity Statement: Stable to be discharged from cardiac standpoint. Time Spent in Patient Care: Greater than 35 minutes (>than 50% of time spent in counselling and/or direct pt care on unit) . Coding Level of Care Code New Pt Acute Db2 Developer for Effie Ash Patient Type New History Comprehensive Exam Comprehensive Medical Decision Making High Complexity Diagnoses Chest pain I20.0 Chest pain type: chest pain due to myocardial ischemia Ischemic chest pain type: unstable angina pectoris CAD (coronary artery disease) I25.110 Coronary Disease-Associated Artery/Lesion type: [place] artery [place] vs. transplanted heart: [place] heart Associated angina: with unstable angina HTN (hypertension) I10 Hypertension type: essential hypertension Hyperlipidemia E78.2 Hyperlipidemia type: mixed hyperlipidemia Time Spent (min) 35
--- NOTE | 2020-10-18 07:00 | USCV_ITS ---
Fransico Osborn Age: 55 Gender: M : 1965 Exam Date: 10/18/2020 06:02 Ordering Phys: Quirino Puri MD Technologist: Anastasiia [place] [facility] [place]: UNSTABLE ANGINA BP: 100 / 62 HR: 58 Rhythm: Sinus Technical Quality: Adequate MEASUREMENTS (Male / Female) Normal Values 2D ECHO LV Diastolic Diameter PLAX 4.2 cm 4.2 - 5.9 / 3.9 - 5.3 cm LV Systolic Diameter PLAX 2.9 cm LV Chamber Size 2.6 cm IVS Diastolic Thickness 1.1 cm 0.6 - 1.0 / 0.6 - 0.9 cm IVS Systolic Thickness 1.7 cm LVPW Diastolic Thickness 1.9 cm 0.6 - 1.0 / 0.6 - 0.9 cm LVPW Systolic Thickness 2.4 cm RV Chamber Size 3.4 cm LVOT Diameter 2.1 cm LV Ejection Fraction 2D Teich 59.0 % LV Ejection Fraction MOD 2C 45.8 % LV Ejection Fraction 2C AL 46.9 % LA Diameter 3.7 cm LA Width 3.5 cm LA Height 4.7 cm RA Width 3.9 cm RA Height 4.3 cm Aorta at Sinotubular Diameter 3.2 cm M-MODE LV Diastolic Diameter MM 5.6 cm 4.2 - 5.9 / 3.9 - 5.3 cm LV Systolic Diameter MM 3.5 cm LV Ejection Fraction MM Teich 66.8 % IVS Diastolic Thickness MM 0.7 cm 0.6 - 1.0 / 0.6 - 0.9 cm IVS Systolic Thickness MM 1.0 cm LVPW Diastolic Thickness MM 0.6 cm 0.6 - 1.0 / 0.6 - 0.9 cm LVPW Systolic Thickness MM 1.9 cm Aortic Annulus Diameter 3.3 cm LA Ao Ratio MM 1.3 MV E Point Septal Separation 0.9 cm DOPPLER AV Peak Velocity 130.0 cm/s LVOT Peak Velocity 89.0 cm/s AV Area Cont Eq vti 2.4 cm squared AV Area Cont Eq pk 2.4 cm squared MV Area PHT 4.2 cm squared Mitral E to A Ratio 1.2 MV E' Velocity 48.5 cm/s Mitral E to MV E' Ratio 7.8 Mitral E to LV E' Lateral Ratio 6.7 Mitral E to LV E' Septal Ratio 9.5 TR Peak Velocity 157.0 cm/s TR Peak Gradient 9.9 mmHg TV Peak E Velocity 45.0 cm/s Right Atrial Pressure 3.0 mmHg Pulmonary Artery Systolic Pressu 12.9 mmHg PV Peak Velocity 78.0 cm/s RV Acceleration Time 0.1 s RV Ejection Time 0.3 s RV AcT/ET 0.4 FINDINGS Left Ventricle Normal left ventricular size, systolic function and wall thickness, with no regional wall motion abnormalities. Left ventricular ejection fraction is estimated at 60 %. Normal diastolic function. Right Ventricle Normal right ventricular size and systolic function. Right ventricular systolic pressure 12.9 mmHg. Right Atrium Normal right atrial size. Left Atrium Normal left atrial size. Mitral Valve Structurally normal mitral valve. No mitral valve stenosis. Trace mitral valve regurgitation. Aortic Valve Aortic valve not well visualized. No aortic valve stenosis. No aortic valve regurgitation. Tricuspid Valve Structurally normal tricuspid valve. Trace tricuspid valve regurgitation. Pulmonic Valve Pulmonic valve not well visualized. No significant pulmonary valve regurgitation. Pericardium No pericardial effusion. Aorta Normal-sized aortic root. CONCLUSIONS 1. Normal left ventricular size, systolic function and wall thickness, with no regional wall motion abnormalities. Left ventricular ejection fraction is estimated at 60 %. Normal diastolic function. 2. Normal right ventricular size and systolic function. 3. Normal pulmonary artery pressure. 4. No significant valvular abnormality. 5. No significant change when compared to previous echocardiogram dated 05/23/2018. Jyotsna Berkowitz MD (Electronically Signed) Final Date: 18 October 2020 13:33 S
--- NOTE | 2020-10-18 08:48 | PC.CHAP ---
Pastoral Care Encounter/Spiritual Assessment Type of Contact [] Declined bar machine operator production visit [] Patient/Family/Request visit [] Outpatient visit [] Follow-up visit [] Physician referral [] Code/Alert [x] Routine visit [] Staff referral [] Actively dying [] Patient sleeping [] Family support [] [] Out of room [] Palliative care [] [] Receiving care in room [] Pre-surgical visit [] Trauma [] Long length of stay [] ICU visit [] Other: Relational/Emotional Strength [] Patient feels connected with others/family/visitors/staff [] Distress [] Loneliness/isolation [] Abandonment Spirituality of Patient [] Person of [place] [] Attends Jain of their [place] [] Believes in Prayer [] Reads Bible or Cheondoism materials [] There are Spiritual issues to be addressed Part Time Receptionist Interventions [x] Prayer [x] Active listening [x] Non-anxious presence [x] Spiritual/emotional support [] Crisis/trauma care [] Spiritual counseling [] Bereavement support [] Provided bereavement packet [] Provided Bible/devotional materials [] Provided toy/stuffed animal, coloring book to patient or family member [] Provided Communion [] Anointing/Sigel [] Salvation [x] Completed spiritual assessment [] Other: Impact on Illness or Injury [] Angry [] Fearful [] Anxious [] Often cries [] Exhaustion [] Unable to work [] Unable to attend islam [] Unable to walk/stand [] Unable to read [] Unable to drive [] Unable to eat/drink [] Unable to sleep [] Unable to be with family [] Patient intubated [] Other: Summary pain has lessened - feeling better Time spent with patient 10 min
[2020-10-18] MEDS: enoxaparin 120 mg/0.8 mL Syringe SUBCUT (09:08)
[2020-10-18] MEDS: lisinopril 2.5 mg Tablet PO (09:09)
[2020-10-18] MEDS: bumetanide 1 mg Tablet PO (09:09)
--- NOTE | 2020-10-18 09:21 | XACV_ITS ---
Exam Room: [facility] Ht: 173 cm Wt: 118 kg BSA: 2.43 m2 Gender: Male : 1965 Any Known Allergies: Other Exam Priority: Routine Procedure(s): Procedure Description: Diagnostic procedure Procedure Description: Left Heart Catheterization Procedure Description: Coronary Angiography Diagnostic Findings * No significant disease noted in the Left Main, LAD, Circumflex, or RCA coronary arteries. * Coronary angiography shows right dominance. Conclusions 1. No significant disease noted in the Left Main, LAD, Circumflex, or RCA has patent previously placed stents without significant in-stent restenosis.. 2. Indication for left heart cath: Unstable angina 3. like picture with worsening of chest pain at admission 4. to the hospital 5. . Recommendations * Continue current medical management and risk factor modification. Diagnostic RX Recommendation: medical therapy and/or counseling Pressures Phase:Rest AO : 118 / 28 ( 60 ) @ 5:22:00 AM 100 / 67 ( 82 ) @ 5:24:00 AM 109 / 69 ( 87 ) @ 5:25:00 AM 133 / 51 ( 92 ) @ 5:26:00 AM LV : 127 / -13 / @ 5:22:00 AM Clinical Evaluation EBL: 5mL-10mL Procedural Details Procedure Consent Obtained. Pre-Procedure Time Out. Identified patient by full name and date of as verbalized by the patient/guarantor. Does the consent match the physician's order: Yes. Accurate & Complete Informed Consent: Yes. Inpatient/Outpatient History & Physical on Chart: Yes. If H&P is completed, is and addenduem needed: N/A; If yes, is the addendum complete: N/A. Visualize and Verify Site with Patient/Guarantor: N/A. Relevant Radiology Images available: Yes. Pre-op teaching completed and patient verbalized understanding. The risks, benefits, and alternatives of sedation and/or procedure were discussed by physician. The patient agrees to continue. Procedure started. Correct patient, site and procedure confirmed by cath team. PERRLA. Strong, equal hand skating rink ice maker bilaterally. Lungs clear x 5 lobes. IV Fluids: 0.9% NaCl at KVO. 0 mL infused prior to coreroom foundry laborer. Oxygen started at 2liters/min via nasal canula. right groin was prepped with chloroprep then draped in the usual sterile fashion. right radial was prepped with chloroprep then draped in the usual sterile fashion. Equipment: 6F - Radial. Cardiac Cath Pack. [employer] Manifold Kit Model BT 2000. Heparinized Saline (2 units/mL), 1000 mL bag. Physician notified. Physician arrived. Baseline sample Acquired. HR: 59 BPM. Physician scrubbed in. Immediate Pre-Procedure Time Out. Correct Patient: Yes; Correct Procedure: Yes; Correct Site: Yes; Correct Patient Position: Yes; Correct Supplies: Yes; Dried Flammable Prep: Yes; Blood Products Available: No;. Lidocaine 1% infiltrated to the right radial. Arterial access obtained. EDP Sample taken: LV 127/-14,15; HR: 79 BPM; SpO2: 96%. Pullback taken: LV Off; AO Off; Mean: , Peak to Peak: , SEP: ; HR: 74 BPM; SpO2: 96%. A 5 syriac TIG catheter in over wire. Multiple views taken of left coronary artery. Catheter redirected to the RCA. Catheter out. A TR Band was successful obtaining hemostatsis at the Right Radial artery insertion site. TR band placed. Hemostasis obtained. Post Procedure: Pulses reassessed and unchanged. PERRLA. Strong, equal hand skating rink ice maker bilaterally. No VTE prophylaxis required. Fluoro: 1:06. Contrast type used: Omnipaque 300 mgI/mL, 500 mL bottle. [id number]. Complications: none. Estimated blood loss: 5mL-10mL. Procedure completed. Patient transferred by wheelchair to 1st floor. Post-op diagnosis: non CAD patent stent. [facility] Clinical Fraility Score: 3: Managing Well. Director Medical Surgical Indications: New Onset Angina. Chest Pain Symptom Assessment: Typical Angina Symptoms. Medication's Wasted: Nitro = 49.8 mg. Medication's Wasted: Lidocaine 1% = 18 mL. Medication's Wasted: Heparin = 1000 units. Medication's Wasted: Other = fentanyl 50 mcg. Total IV fluids: 50 mL. Vital chart was stopped. Access Site Site: Right Radial artery Sheath Size: 6 Fr Hemostasis Method: TR Band Hemostasis Success: Successful Procedure Medications Start: 11:14 AM Stop: 11:14 AM Medication: Versed Amount: 2 mg Route: I.V. Start: 11:14 AM Stop: 11:14 AM Medication: Fentanyl Amount: 50 mcg Route: I.V. Start: 11:20 AM Stop: 11:20 AM Medication: Nitrogylcerin Amount: 200 mcg Route: I.A. I, the attending physician, have reviewed and verified all procedure medications. Yes, all medications given per verbal order History/Risk Factors Hypertension: Yes Dyslipidemia: Yes Myocardial Infarction (NH): Yes Tobacco Use: Current/Recent(w/in 1 year) Prior Interventions PCI: Yes Report Signatures Finalized by Quirino Chavarria MD on 10/23/2020 07:04 PM
[2020-10-18] MEDS: sodium chloride 0.9% 1,000 ML 50 ML IV (09:33)
[2020-10-18] MEDS: diphenhydrAMINE 50 mg Capsule PO (09:35)
--- NOTE | 2020-10-18 10:29 | P.PN_ITS ---
Subjective Subjective: Interval history: Patient was examined this morning, he is laying in bed, he had one episode of 1 out of 10 chest pain early in the morning, no episodes of chest pain since then, no lightheadedness, no dizziness, no nausea, no vomiting, no shortness of breath Vitals/I&O/Wt Last Vital Signs Temp 98.0 F 10/18/20 06:48 Pulse 66 10/18/20 06:48 Resp 22 H 10/18/20 06:48 BP 107/73 10/18/20 06:48 Pulse Ox 95 10/18/20 06:48 10/17/20 10/18/20 10/18/20 22:59 06:59 14:59 Intake Total 300 / 300 Balance 300 / 300 Weight last 48 hrs Weight 117.934 kg Physical Exam Const: COMMON NORMALS: no acute distress and patient oriented x3 HENMT: COMMON NORMALS: normocephalic HEAD & SCALP: normocephalic Neck/C-Spine: COMMON NORMALS: no JVD Resp: COMMON NORMALS: normal respiratory effort, No retractions, No use of accessory muscles and clear to auscultation bilaterally AUSCULTATION: clear to auscultation bilaterally Cardio: COMMON NORMALS: no JVD, regular rate, regular rhythm, S1 normal heart sound present and S2 normal heart sound present RATE: regular rate RHYTHM: regular rhythm HEART SOUNDS: S1 normal heart sound present and S2 normal heart sound present GI: COMMON NORMALS: Normal to inspection, nondistended, normoactive bowel sounds present, Soft to palpation, non-tender, No hepatosplenomegaly present, no masses and no bruits PALPATION: Yes Soft to palpation and Yes No hepatosplenomegaly present Extremity: COMMON NORMALS: capillary refill normal, no clubbing, cyanosis or edema, no calf tenderness and no pedal edema Neuro: COMMON NORMALS: patient oriented x3 Psych: COMMON NORMALS: mental status grossly normal Data : 10/18/20 03:29 10/18/20 03:29 A&P Assessment and plan (1) Unstable angina pectoris: Unstable angina with established coronary artery disease Currently chest pain-free on Nitropaste, no active headache, normal hemodynamics EKG is not showing ischemic or infarctive changes, troponin 6 Aspirin, statin, Plavix, therapeutic Lovenox Cardiology is consulted N.p.o. after midnight Plans for cardiac catheterization this morning Status: Acute Additional A&P Information Obstructive sleep apnea: Auto CPAP overnight DVT/pulmonary embolism: I will switch his Eliquis to therapeutic dose of Lovenox for now, he is following up with soft work wrapper layer and examiner Dr. Arellano Morbid obesity: Currently following up with bariatric clinic Diastolic congestive heart failure without acute exacerbation I would continue his home regimen for now DVT prophylaxis not indicated due to therapeutic dose of Lovenox N.p.o. Full code Attestations Medical Necessity Statement*: Patient requires hospitalization for unstable angina, requiring cardiac catheterization Coding Level of Care Code Acute Liquid Chlorine Operator for Effie Ash Diagnoses Unstable angina pectoris I20.0
[2020-10-18 10:31] LABS: SARS Covid-2 Antigen Negative (Negative)
--- NOTE | 2020-10-18 11:00 | PC.NURSE ---
Aura at bedside discussing with patient left heart cath procedure. consent signed.patient to clinical genetics laboratory chief via wheelchair. fluids started, benadryl given, patient is prepped.
--- NOTE | 2020-10-18 11:10 | W.PM.OPSUD ---
Surgery/Procedure H&P Update DATE OF PROCEDURE: October 18, 2020 DATE H&P PERFORMED: 10/17/20 H&P UPDATE INFORMATION: I have reviewed H&P completed within last 30 days, I have examined patient prior to procedure and No changes to prior documentation PREOP DIAGNOSIS: Unstable angina PLANNED PROCEDURE: Operation Date: 10/18/20 10:30 Proposed Procedures p left Cardiac Catheterization 33637 R07.9(Left) - Quirino Chavarria MD PATIENT REASSESSED PRIOR TO SEDATION, WITH NO CHANGE NOTED: Yes PHYSICAL EXAM: alert, oriented x 3, clear to auscultation bilaterally and regular rate & rhythm AIRWAY EVAL/ANESTHESIA PLAN: ASA II, Risks, benefits & alternatives of sedation and/or procedure discussed and Patient agrees to continue as planned
--- NOTE | 2020-10-18 11:32 | P.DS_ITS ---
Discharge Providers Date of Admission: 10/17/20 19:33 Date of Discharge: October 18, 2020 Attending Provider at Admission: Quirino Puri MD Attending Provider at Discharge: Kevin Holland MD Primary Care Provider: Juma Gupta DO Diagnoses at Discharge Discharge Diagnosis (1) Unstable angina pectoris: Status: Acute Reason for Visit Reason for Visit: chest pain Hospital Course Hospital Course This is a 55-year-old male with a past medical history of CAD status post stenting x2 in the RCA, diastolic CHF, sleep apnea, obesity, alcohol abuse, CVA, PE on Eliquis, who presents to [facility] due to chest pain Patient was admitted to [facility] for unstable angina, no significant EKG changes, no significant troponin delta, patient was admitted to the cardiac stepdown unit, aspirin, statin, Plavix, therapeutic Lovenox, kept n.p.o., cardiology was consulted. Patient underwent a cardiac catheterization, which did not show any clinically significant obstructive CAD. Discharged on his home statin, Plavix, Eliquis, with a close follow-up with cardiology as outpatient. Physical Exam Const: COMMON NORMALS: no acute distress and patient oriented x3 HENMT: COMMON NORMALS: normocephalic HEAD & SCALP: normocephalic Neck/C-Spine: COMMON NORMALS: no JVD Resp: COMMON NORMALS: normal respiratory effort, No retractions, No use of accessory muscles and clear to auscultation bilaterally AUSCULTATION: clear to auscultation bilaterally Cardio: COMMON NORMALS: no JVD, regular rate, regular rhythm, S1 normal heart sound present and S2 normal heart sound present RATE: regular rate RHYTHM: regular rhythm HEART SOUNDS: S1 normal heart sound present and S2 normal heart sound present GI: COMMON NORMALS: Normal to inspection, nondistended, normoactive bowel sounds present, Soft to palpation, non-tender, No hepatosplenomegaly present, no masses and no bruits PALPATION: Yes Soft to palpation and Yes No hepatosplenomegaly present Extremity: COMMON NORMALS: capillary refill normal, no clubbing, cyanosis or edema, no calf tenderness and no pedal edema Neuro: COMMON NORMALS: patient oriented x3 Psych: COMMON NORMALS: mental status grossly normal Discharge Data Data Completed and Pending: Completed Studies During Hospitalization Category Date Time Status XR chest 1V jaycee ble [id number] Stat Exams 10/17/20 17:50 Completed Pending at discharge Category Date Time Status [employer]ER request for service Urgent Exams 10/18/20 09:21 Ordered Complete Blood Co unt w/Auto AM LABS Lab 10/19/20 04:00 Ordered Complete Blood Co unt w/Auto AM LABS Lab 10/20/20 04:00 Ordered Complete Blood Co unt w/Auto AM LABS Lab 10/21/20 04:00 Ordered Comprehensive Met abolic Panel AM LA BS Lab 10/19/20 04:00 Ordered Comprehensive Met abolic Panel AM LA BS Lab 10/20/20 04:00 Ordered Comprehensive Met abolic Panel AM LA BS Lab 10/21/20 04:00 Ordered Magnesium AM LABS Lab 10/19/20 04:00 Ordered Magnesium AM LABS Lab 10/20/20 04:00 Ordered Magnesium AM LABS Lab 10/21/20 04:00 Ordered Phosphorus AM LAB S Lab 10/19/20 04:00 Ordered Phosphorus AM LAB S Lab 10/20/20 04:00 Ordered Phosphorus AM LAB S Lab 10/21/20 04:00 Ordered CV echo complete* [id number] Routine Ultrasound 10/18/20 07:00 Taken Labs from last 24 hours 10/18/20 10/18/20 10/18/20 10:02 03:29 03:29 WBC 7.1 RBC 4.70 Hgb 12.7 Hct 40.7 L MCV 86.6 MCH 27.0 L MCHC 31.2 RDW 13.8 Plt Count 209 MPV 10.1 Neut % (Auto) 53.2 Lymph % (Auto) 32.9 Story % (Auto) 10.8 Eos % (Auto) 2.1 Baso % (Auto) 0.6 Neut # (Auto) 3.76 Lymph # (Auto) 2.3 Story # (Auto) 0.8 Eos # (Auto) 0.2 Baso # (Auto) 0.0 Nucleated RBC % (a uto) 0 Nucleated RBCs # 0.0 Sodium 140 Potassium 3.9 Chloride 104 Carbon Dioxide 29 Anion Gap 10.9 BUN 15 Creatinine 0.8 GFR Calculation 99.6 Glucose 108 Calculated Osmolal ity 291 Calcium 9.5 Total Bilirubin AST ALT Alkaline Phosphata se Troponin T Baselin e Troponin T [address] [place] Delta Troponin T Troponin T Hi Sens 6Hr Troponin T Hi Sens 6Hr Delta Total Protein Albumin Globulin SARS-CoV-2 Ag (Rap id) Negative 10/17/20 10/17/20 10/17/20 23:32 19:46 18:16 WBC RBC Hgb Hct MCV MCH MCHC RDW Plt Count MPV Neut % (Auto) Lymph % (Auto) Story % (Auto) Eos % (Auto) Baso % (Auto) Neut # (Auto) Lymph # (Auto) Story # (Auto) Eos # (Auto) Baso # (Auto) Nucleated RBC % (a uto) Nucleated RBCs # Sodium Potassium Chloride Carbon Dioxide Anion Gap BUN Creatinine GFR Calculation Glucose Calculated Osmolal ity Calcium Total Bilirubin AST ALT Alkaline Phosphata se Troponin T Baselin e 6 Troponin T [address] [place] 6.52 Delta Troponin T 0.52 Troponin T Hi Sens 6Hr 6.00 Troponin T Hi Sens 6Hr Delta 0 Total Protein Albumin Globulin SARS-CoV-2 Ag (Rap id) 10/17/20 10/17/20 18:16 18:16 WBC 8.3 RBC 4.98 Hgb 13.5 Hct 43.0 MCV 86.3 MCH 27.1 L MCHC 31.4 RDW 13.6 Plt Count 222 MPV 9.8 Neut % (Auto) 65.0 Lymph % (Auto) 24.7 Story % (Auto) 8.2 Eos % (Auto) 1.2 Baso % (Auto) 0.5 Neut # (Auto) 5.37 Lymph # (Auto) 2.0 Story # (Auto) 0.7 Eos # (Auto) 0.1 Baso # (Auto) 0.0 Nucleated RBC % (a uto) 0 Nucleated RBCs # 0.0 Sodium 141 Potassium 4.3 Chloride 104 Carbon Dioxide 28 Anion Gap 13.3 BUN 12 Creatinine 0.8 GFR Calculation 99.6 Glucose 96 Calculated Osmolal ity 292 Calcium 9.1 Total Bilirubin 0.2 AST 20 ALT 25 Alkaline Phosphata se 69 Troponin T Baselin e Troponin T [address] [place] Delta Troponin T Troponin T Hi Sens 6Hr Troponin T Hi Sens 6Hr Delta Total Protein 6.8 Albumin 4.3 Globulin 2.5 SARS-CoV-2 Ag (Rap id) Vitals: Last Vital Signs Temp 97.3 F L 10/18/20 10:30 Pulse 68 10/18/20 10:30 Resp 18 10/18/20 10:30 BP 124/72 10/18/20 10:30 Pulse Ox 96 10/18/20 10:30 Discharge Plan Discharge Patient Disposition: Home Condition: Stable Prescriptions: Continued clopidogrel [Plavix] 75 mg tablet 75 mg PO DAILY@0700 RF: 0 loratadine 10 mg tablet 10 mg PO DAILY@0700 RF: 0 famotidine 40 mg tablet 40 mg PO DAILY@0700 RF: 0 tiotropium bromide [Spiriva Respimat] 1.25 mcg/actuation mist See Rx Instructions .ROUTE .COMPLEX Qty: 4 RF: 3 magnesium oxide [MagOx] 400 mg (241.3 mg magnesium) Tablet 400 mg PO DAILY@0700 RF: 0 nitroglycerin [Nitrostat] 0.4 mg Tablet, Sublingual 0.4 mg SUBLINGUAL Q5M PRN (Reason: Chest Pain) RF: 0 lisinopril 2.5 mg Tablet 2.5 mg PO DAILY RF: 0 albuterol sulfate 90 mcg/actuation HFA aerosol inhaler 1 inh INHALATION Q6H PRN (Reason: shortness of breath or wheezing) Qty: 6.7 RF: 0 sildenafil (pulm.hypertension) 20 mg tablet See Rx Instructions .ROUTE .COMPLEX RF: 0 bumetanide 2 mg tablet 2 mg PO BID@ RF: 0 spironolactone 25 mg tablet 25 mg PO DAILY@00 RF: 0 Crestor 40 mg tablet 40 mg PO BEDTIME@1999 RF: 0 Eliquis 5 mg tablet 5 mg PO BID@ RF: 0 potassium chloride 20 mEq tablet extended release 40 meq PO BID@699,1999 RF: 0 Discharge Orders: Discharge Order (Routine); Ordered 10/18/20 Ordered By: Kevin Holland Referrals: Juma Gupta DO [Primary Care Provider] - Jyotsna Berkowitz MD [Physician] - 1 month Discharge Diet: Cardiac Discharge Activity: Resume usual activity Discharge Attestations Time Spent in Discharge Care*: less than 30 min Quality Metrics Clinical Quality Measures During this hospital stay, did patient experience: None Coding Level of Care Code Acute Straw Hat Brim Cutter Operator for Sharrong Fwd Diagnoses Unstable angina pectoris I20.0
--- NOTE | 2020-10-18 11:34 | PC.NURSE ---
patient back from label remover. no hematoma noted. right radial tr band in place.
--- NOTE | 2020-10-18 14:30 | PC.NURSE ---
tr band removed per protocol. dressing in place. no hematoma noted.
--- NOTE | 2020-10-18 15:17 | PC.NURSE ---
discharge instructions given. all questions answered at this time. iv removed tip intact. patient in wheelchair and stated that he had all of his belonging with him and was taken to er exit where private vehicle picked him up.
[2020-10-18 17:53] LABS: Chol HDL Ratio 5.84 mg/dL (1.0-5.00); Cholesterol 146 mg/dL (0-200); HDL Cholesterol 25 mg/dL (60-100); LDL Cholesterol Calculated 75 mg/dL (50-129); Triglycerides 231 mg/dL (0-150)
--- NOTE | 2020-10-19 16:44 | PC.RESP ---
Smoking Cessation information sent to patient.
== END 2020-10-18 15:20 | disposition home or self-care (01) | DRG 287 ==
LOC: ER 19:35 → CSU 10-18 05:04
PROVIDERS: Emergency Medicine; Internal Medicine Cardiovascular Disease; Admitting Provider Internal Medicine; Emergency Provider Family Medicine; PCP Electrodiagnostic Medicine; Visit Provider Family Medicine
PROC: 4A023N7 Measurement of Cardiac Sampling and Pressure, Left Heart, Percutaneous Approach (ICD-10-PCS; principal; 2020-10-18 10:30)
DX: I25.110 Atherosclerotic heart disease of native coronary artery with unstable angina pectoris (principal); I50.32 Chronic diastolic (congestive) heart failure; Z95.5 Presence of coronary angioplasty implant and graft; G47.33 Obstructive sleep apnea (adult) (pediatric); Z79.01 Long term (current) use of anticoagulants; Z86.711 Personal history of pulmonary embolism; Z68.39 Body mass index [BMI] 39.0-39.9, adult; Z79.02 Long term (current) use of antithrombotics/antiplatelets; F17.210 Nicotine dependence, cigarettes, uncomplicated; I25.2 Old myocardial infarction; E66.01 Morbid (severe) obesity due to excess calories; I11.0 Hypertensive heart disease with heart failure
CPT/HCPCS: 12345; 36415; 71045; 80048; 80053; 80061; 84484; 85025; 87426; 93005; 93306; 93452; 96372; 99283; C1769; C1887; C1894; J1644; J1650; J2250; J3010; J3490; J7030; Q0163; Q9967

== ENCOUNTER → 2020-12-16 10:05 | Outpatient (BNVA) | payer OTHER, SELFPAY | PROVIDERS: PCP Electrodiagnostic Medicine; Visit Provider Internal Medicine Cardiovascular Disease | DX: I10 Essential (primary) hypertension (principal) | CPT/HCPCS: 80048 ==

== ENCOUNTER 2021-01-11 17:18 | Emergency (ER) | payer OTHER, SELFPAY ==
[2021-01-11] VITALS (7 sets, daily range): BP systolic 118–144; BP diastolic 63–84; PULSE 69–81; RESP 14–18; TEMP 36.4; O2SAT 93–98; BMI 41.8
--- NOTE | 2021-01-11 19:49 | W.ED.ABDPA2 ---
HPI - Abdominal Pain General: Chief Complaint: Abdominal Pain Stated Complaint: Sent from for Poss Hernia Time Seen by Provider: 01/11/21 18:41 Source: patient Mode of arrival: ambulatory Limitations: no limitations History of Present Illness: HPI narrative: 55-year-old male with complaints of lower abdominal pain, periumbilical and right lower quadrant that radiates down into his groin. Symptoms are worse with coughing and straining, better with rest. He has had chills, but no fever. His last meal was this morning at 930, has been nauseous but has not had any vomiting. He has had an umbilical hernia for a long time, and has been hurting him more lately since he has been coughing a lot. He has not tried taking anything for symptoms yet. He has a history of coronary artery disease, perioperative PE, CHF , is on Plavix and Eliquis. Associated Symptoms: Reports chills and nausea; Denies dysuria, fever(s), hematemesis and vomiting Review of Systems General: Reports: 10 or more systems reviewed and unremarkable except in HPI and below Const: Reports: chills, body aches and change in appetite; Denies: fever(s), change in weight, fatigue, night sweats or diaphoresis Eyes: Denies: change in vision, blurry vision or blind spots Card: Denies: chest pain, palpitations or irregular heart rhythm Resp: Reports: productive cough; Denies: dyspnea or non-productive cough GI: Reports: abdominal pain and nausea; Denies: vomiting or hematemesis : Denies: difficulty urinating, dysuria or urinary frequency Musc: Denies: neck pain, back pain or extremity pain Skin/Breast: Denies: rash, pruritus or erythema Neuro: Denies: headache(s) Endo: Denies: polyuria, polydipsia or tired all the time Mateusz/Lymph: Reports: easy bruising and easy bleeding; Denies: petechiae or purpura PFSH ED PFSH: Medical History Angina pectoris CAD (coronary artery disease) CHF (congestive heart failure) Fever Hiatal hernia History of left heart catheterization HTN (hypertension) Myocardial infarction Obesity Penetrating head injury Pulmonary emboli Pulmonary embolism Viral syndrome Surgical History History of heart artery stent S/P neurological surgery Family History Father Heart disease Alzheimer's dementia Social History Smoking and tobacco status: current every day smoker cigarettes Packs smoked per day: 1 Years cigarettes smoked: 45 Quit status (tobacco): has tried quititng Alcohol intake: current Alcohol intake frequency: holidays/special occasions only Lives independently: Yes Household members: significant other Marital status: Life Partner Current occupational status: employed History of recent travel: No Current gender identity: Male Physical Exam Const: GENERAL APPEARANCE: cooperative, anxious and ill appearing; not diaphoretic NUTRITIONAL APPEARANCE: obese morbidly obese ORIENTATION/CONSCIOUSNESS: Yes awake, Yes oriented to person, Yes oriented to place and Yes oriented to time HENMT: COMMON NORMALS: normocephalic and hearing grossly normal bilaterally HEAD & SCALP: normocephalic FACE & SINUS: normal facial exam and face symmetric Eye: COMMON NORMALS: Equal, round and reactive pupils present, EOMs intact bilaterally, conjunctivae normal and no scleral icterus CONJUNCTIVA: Yes conjunctivae normal PUPIL: Yes Equal, round and reactive pupils present Resp: COMMON NORMALS: normal respiratory effort and No retractions EFFORT & INSPECTION: Yes able to speak in complete sentences, Yes abnormal respiratory pattern, No tachypneic, No respiratory distress, No stridor and No Actively coughing Cardio: COMMON NORMALS: regular rhythm, S1 normal heart sound present and S2 normal heart sound present RHYTHM: regular rhythm HEART SOUNDS: S1 normal heart sound present and S2 normal heart sound present GI: COMMON NORMALS: Normal to inspection, nondistended, normoactive bowel sounds present and Soft to palpation PALPATION: Yes Soft to palpation, Yes Tenderness to palpation present (GI) Details: RLQ and other (Periumbilical), No Rigid due to palpation, Yes Hernia present umbilical, No Ascites present, No Abdominal wall crepitus present and No Rebound tenderness present : MALE GROIN/PERINEUM EXAM: No hernia and Yes tenderness (Right inguinal tenderness) PENIS: normal penis Back/Pelvis: LUMBAR SPINE/LOWER BACK: No normal to inspection and No lumbar ROM normal Extremity: COMMON NORMALS: full ROM, capillary refill normal and no clubbing, cyanosis or edema Neuro: SENSORIUM/ORIENTATION: Yes oriented to person, Yes oriented to place and Yes oriented to time Skin: COMMON NORMALS: no rashes or lesions noted, no wounds, no jaundice, no petechiae and no mottling GENERAL SKIN EXAM: no rashes or lesions noted Procedures Procedural Sedation Indication: other (Umbilical hernia reduction) Time of Last PO Intake: 09:30 Preparation: vocational aide applied, pulse oximeter, supplemental O2 applied, suction/airway equipment at bedside and IV secured IV Etomidate dose (mg): 12 Patient Tolerated Procedure: well Complications: none Course Vital Signs: Vital signs: Vital Signs Temperature 97.5 F L 01/11/21 18:35 Pulse Rate 80 01/11/21 23:27 Respiratory Rate 16 01/11/21 23:27 Blood Pressure 118/79 01/11/21 23:27 Pulse Oximetry 97 01/11/21 23:27 MDM - Abdominal Pain MDM Narrative: Medical decision making narrative: 55-year-old male with lower abdominal pain, recurrent umbilical hernia. CT shows 2 fat-containing hernias within the umbilical area, probably strangulated, with surrounding fat stranding. No sign of bowel wall thickening or obstruction. No appendicitis. Spoke with Dr. Mckeon, general surgeon. Since the patient stable, without any signs of infection or obstruction, he recommended reducing the hernia if at all possible and following up in clinic to discuss elective repair at a later time due to the patient's multiple comorbidities and anticoagulated state. Umbilical hernia was successfully reduced under procedural sedation with etomidate. Short time later, the patient coughed and it protruded again, however this time it was not as painful, and I was able to demonstrate to the patient how to self reduce with gentle constant pressure while relaxed and lying flat. Surgery referral submitted. Strict instructions to return immediately if you develop fever, worsening pain, vomiting, or if he was not able to reduce the hernia himself. Differential Diagnosis: Differential diagnosis abdominal pain: Likely abdominal pain, acute appendicitis and small bowel obstruction Medical Records: Attestation: I reviewed the patient's medical records. Lab Data: Attestation: I reviewed the patient's lab results. Labs: Lab Results 01/11/21 01/11/21 01/11/21 Range/Units 20:12 20:12 20:12 WBC 10.0 (4.0-10.0) 10^3/ uL RBC 5.23 (4.1-5.3) 10^6/u L Hgb 14.2 (11.7-16.6) g/dL Hct 43.9 (42.0-52.0) % MCV 83.9 (80-94) fL MCH 27.2 L (28.0-34.0) pg MCHC 32.3 (30.0-36.0) g/dL RDW 13.2 (12.1-15.1) % Plt Count 191 (130-400) 10^3/c mm MPV 10.1 (7.4-10.4) fL Neut % (Auto) 62.9 % Lymph % (Auto) 25.2 % [place] % (Auto) 10.0 % Eos % (Auto) 1.3 % Baso % (Auto) 0.4 % Neut # (Auto) 6.30 (1.8-7.7) 10^3/u L Lymph # (Auto) 2.5 (0.8-4.8) 10^3/u L [place] # (Auto) 1.0 H (0.2-0.9) 10^3/u L Eos # (Auto) 0.1 (0.0-0.8) 10^3/u L Baso # (Auto) 0.0 (0.0-0.1) 10^3/u L Nucleated RBC % (a uto) 0 % Nucleated RBCs # 0.0 /100WBC PT 13.70 (12.1-14.9) SECO NDS INR 1.02 (0.8-1.2) Lactate 0.9 (0.5-2.2) mmol/L Magnesium (1.7-2.3) mg/dL C-Reactive Protein (0.0-4.9) mg/L 01/11/21 Range/Units 20:12 WBC (4.0-10.0) 10^3/ uL RBC (4.1-5.3) 10^6/u L Hgb (11.7-16.6) g/dL Hct (42.0-52.0) % MCV (80-94) fL MCH (28.0-34.0) pg MCHC (30.0-36.0) g/dL RDW (12.1-15.1) % Plt Count (130-400) 10^3/c mm MPV (7.4-10.4) fL Neut % (Auto) % Lymph % (Auto) % [place] % (Auto) % Eos % (Auto) % Baso % (Auto) % Neut # (Auto) (1.8-7.7) 10^3/u L Lymph # (Auto) (0.8-4.8) 10^3/u L [place] # (Auto) (0.2-0.9) 10^3/u L Eos # (Auto) (0.0-0.8) 10^3/u L Baso # (Auto) (0.0-0.1) 10^3/u L Nucleated RBC % (a uto) % Nucleated RBCs # /100WBC PT (12.1-14.9) SECO NDS INR (0.8-1.2) Lactate (0.5-2.2) mmol/L Magnesium 2.1 (1.7-2.3) mg/dL C-Reactive Protein 35.1 H (0.0-4.9) mg/L Discharge Plan Discharge Patient Disposition: Home Clinical Impression: Recurrent umbilical hernia with incarceration Abdominal pain Qualifiers: Abdominal location: periumbilical Qualified Code(s): R10.33 - Periumbilical pain Condition: Stable Prescriptions: No Action loratadine 10 mg tablet 10 mg PO DAILY@0530 RF: 0 cholecalciferol (vitamin D3) 125 mcg (5,000 unit) capsule 125 mcg PO DAILY@0530 RF: 0 ascorbic acid (vitamin C) 500 mg capsule 1,500 mg PO DAILY@0530 RF: 0 vitamin B complex [B Complex-Vitamin B12] Tablet 1 tab PO DAILY RF: 0 Eliquis 5 mg tablet 5 mg PO BID Qty: 180 RF: 3 nitroglycerin [Nitrostat] 0.4 mg tablet, sublingual 0.4 mg SUBLINGUAL Q5M PRN (Reason: Chest Pain) Qty: 25 RF: 3 potassium chloride 20 mEq tablet extended release 20 meq PO BID Qty: 180 RF: 3 magnesium oxide [MagOx] 400 mg (241.3 mg magnesium) Tablet 400 mg PO DAILY@0700 RF: 0 albuterol sulfate 90 mcg/actuation HFA aerosol inhaler 1 inh INHALATION Q6H PRN (Reason: shortness of breath or wheezing) Qty: 6.7 RF: 0 spironolactone 25 mg tablet 25 mg PO DAILY@0700 RF: 0 rosuvastatin [Crestor] 40 mg tablet 40 mg PO DAILY@0530 RF: 0 Plavix 75 mg Tablet 75 mg PO DAILY@0530 RF: 0 sildenafil (pulm.hypertension) 20 mg tablet See Rx Instructions .ROUTE .COMPLEX RF: 0 Discharge Orders: Discharge ED (Routine); Ordered 01/11/21 Ordered By: Elvia Snow Referrals: Fermin Ordoñez MD [Physician] - 4-7 days (ER followup: recurrent umbilical hernia with incarceration) Juma Gupta DO [Primary Care Provider] - Discharge Diet: Advance as tolerated Discharge Activity: Limit activity as instructed Patient Instructions: Umbilical Hernia (ED) Activity Restrictions/Additional Instructions: Avoid heavy lifting or straining. Brace your umbilical area with your hand when changing positions or moving in ways that typically cause the hernia to come out, such as sitting up from laying position. If the hernia pops out again, lay down flat immediately, take a few deep breaths, relax, and applied gentle constant pressure over your bellybutton until it goes back in. The longer you leave it out, the more difficult and painful it will be to put it back in. You have been referred to the surgery clinic to discuss future surgical repair. Return immediately to the ER if you develop fever, vomiting, worsening pain, or if you are unable to get the hernia to go back in. Coding Level of Care Code ED Calibration Tester for Effie Ash
--- NOTE | 2021-01-11 19:57 | CTR_ITS ---
PROCEDURE INFORMATION: Exam: CT Abdomen And Pelvis With Contrast Exam date and time: 01/11/2021 8:46 PM Age: 55 years old Clinical indication: Abdominal pain; Localized; Right lower quadrant (rlq); Additional info: Rlq pain, right inguinal hernia? TECHNIQUE: Imaging protocol: Computed tomography of the abdomen and pelvis with contrast. Radiation optimization: All CT scans at this facility use at least one of these dose optimization techniques: automated exposure control; mA and/or kV adjustment per patient size (includes targeted exams where dose is matched to clinical indication); or iterative reconstruction. Contrast material: OMNI 300; Contrast volume: 95 ml; Contrast route: INTRAVENOUS (IV); COMPARISON: CT abdomen pelvis w con* [id number] 07/24/2020 10:06 PM RADIATION DOSE METRICS: Total DLP (mGy-cm): 1321.4 FINDINGS: Lungs: The visualized lung bases are clear. Liver: Normal size and density. No focal mass. Gallbladder and bile ducts: No intrahepatic or extrahepatic biliary dilitation. No calcified stones. Pancreas: No evidence of mass. No ductal dilation. Spleen: No splenomegaly or mass. Adrenal glands: Normal. Kidneys and ureters: No stones or hydronephrosis. No evidence of focal mass. Stomach and bowel: No evidence of obstruction. No focal bowel wall thickening or mass. No significant diverticula. Appendix: No evidence of appendicitis. Intraperitoneal space: No free air. No free fluid or evidence of abscess. Vasculature: Multiple vascular calcifications. Lymph nodes: No lymphadenopathy. Urinary bladder: Normal CT appearance. Reproductive: Normal CT appearance for age. Bones/joints: No acute abnormality. Soft tissues: Fat containing left inguinal hernia. Two adjacent fat containing periumbilical hernia defects. Inflammatory fat stranding of the herniated at the umbilicus and also of the adjacent mesenteric fat just deep to the hernia defect. CT/CT abdomen pelvis w con* [id number] IMPRESSION: 1. Two adjacent periumbilical hernia defects measure approximately 2 and 3 cm. The fat containing within these hernia sacs in the mesenteric fat is deep to the hernia defects shows some inflammatory fat stranding suggesting the possibility of strangulation. 2. Fat containing left inguinal hernia. No right inguinal hernia. Radiation Dose CTDIVOL = (mGy): DLP = 1321.4 (mGy-cm)
[2021-01-11] MEDS: sodium chloride 0.9% 1,000 ML 999 ML IV (20:19)
[2021-01-11] MEDS: ondansetron 2 mg/ML SDV 2 mL 4 MG IVP (20:19)
[2021-01-11] MEDS: fentaNYL 50 mcg/mL INJ 2mL 150 MCG IVP (20:19)
[2021-01-11 20:20] LABS: Basophils % 0.4 %; Eosinophils # 0.1 10^3/uL (0.0-0.8); Eosinophils % 1.3 %; Hematocrit 43.9 % (42.0-52.0); Hemoglobin 14.2 g/dL (11.7-16.6); Lymphocytes # 2.5 10^3/uL (0.8-4.8); Lymphocytes % 25.2 %; Mean Corpuscular HGB Conc 32.3 g/dL (30.0-36.0); Mean Corpuscular Hemoglobin 27.2 pg (28.0-34.0); Mean Corpuscular Volume 83.9 fL (80-94); Mean Platelet Volume 10.1 fL (7.4-10.4); Neutrophils % 62.9 %; Nucleated Red Blood Cells % 0 %; Platelet Count 191 10^3/cmm (130-400); Red Blood Count 5.23 10^6/uL (4.1-5.3); Red Cell Distribution Width 13.2 % (12.1-15.1)
[2021-01-11 20:52] LABS: INR 1.02 (0.8-1.2)
[2021-01-11] MEDS: iohexol 300 mg/mL 100 mL Btl IV (21:05)
[2021-01-11 21:07] LABS: Lactate (Lactic Acid level) 0.9 mmol/L (0.5-2.2)
[2021-01-11 21:22] LABS: C Reactive Protein 35.1 mg/L (0.0-4.9); Magnesium 2.1 mg/dL (1.7-2.3)
== END 2021-01-11 23:27 | disposition home or self-care (01) ==
PROVIDERS: Emergency Provider Family Medicine; PCP Electrodiagnostic Medicine
DX: K42.0 Umbilical hernia with obstruction, without gangrene (principal); Z79.01 Long term (current) use of anticoagulants; Z79.02 Long term (current) use of antithrombotics/antiplatelets; I25.10 Atherosclerotic heart disease of native coronary artery without angina pectoris; I11.0 Hypertensive heart disease with heart failure; I50.9 Heart failure, unspecified; I25.2 Old myocardial infarction; F17.210 Nicotine dependence, cigarettes, uncomplicated
CPT/HCPCS: 74177; 83605; 83735; 85025; 85610; 86140; 96361; 96374; 96375; 99284; J2405; J3010; J3490; J7030; Q9967

== ENCOUNTER 2021-01-13 08:56 | Outpatient (CLI) | payer OTHER, SELFPAY ==
[2021-01-13 09:12] LABS: Add Urine Microscopic? NO
[2021-01-13 09:24] LABS: Bilirubin Urine Neg (Negative); Blood Urine Neg (Negative); Glucose Urine UA Norm (Normal); Ketones Urine Negative (Negative); Leukocyte Esterase Urine Negative (Negative); Nitrate Urine Negative (Negative); Protein Urine Neg (Negative); Specific Gravity, Urine 1.015 (1.005-1.030); Urine Appearance Clear (CLEAR); Urine Color Yellow (Yellow); Urobilinogen Urine 1 mg/dL (Negative); pH Urine 6.5 (5-7)
== END 2021-01-13 08:57 | disposition home or self-care (01) ==
PROVIDERS: PCP Electrodiagnostic Medicine; Visit Provider Surgery
DX: R10.31 Right lower quadrant pain (principal)
CPT/HCPCS: 81003

== ENCOUNTER 2021-02-15 09:24 | Outpatient (CLI) | payer OTHER, SELFPAY ==
--- NOTE | 2021-02-15 09:30 | US_ITS ---
WS: [id number] TESTICULAR ULTRASOUND HISTORY: R10.31 - Right lower quadrant pain COMPARISON: None available. TECHNIQUE: Real-time and color Doppler imaging or utilized to perform a testicular ultrasound. Right testicle: 4.6 cm x 2.8 cm x 2.3 cm. Normal size and echogenicity. No mass or torsion. Normal color Doppler is present throughout. Systolic and diastolic velocities are both present. No significant hydrocele. Right epididymis: Normal sized epididymis. No increased vascularity. Small spermatocele versus epidid ymal cyst with a maximum diameter of 3 mm. Left testicle: 4.3 cm x 2.7 cm x 2.7 cm. Normal size and echogenicity. No mass or torsion. Normal color Doppler is present throughout. Systolic and diastolic velocities are both present. No significant hydrocele. Left epididymis: Normal epididymis with no increased vascularity. Small lymph nodes in the RIGHT inguinal canal. Fat-containing LEFT inguinal hernia was also noted on a prior CT. US/US scrotum [id number] IMPRESSION: 1. Normal testicular ultrasound. No mass or torsion. 2. No inguinal hernia identified by ultrasound.
== END 2021-02-15 09:25 | disposition home or self-care (01) ==
PROVIDERS: PCP Electrodiagnostic Medicine; Visit Provider Surgery
DX: R10.31 Right lower quadrant pain (principal)
CPT/HCPCS: 76870

== ENCOUNTER 2021-03-11 19:33 | Emergency (ER) | payer OTHER, SELFPAY ==
[2021-03-11 19:39] VITALS: BP 135/69; PULSE 82; RESP 16; TEMP 36.3; O2SAT 96; BMI 40.7
[2021-03-11 19:44] VITALS: BP 142/88; PULSE 82; RESP 16; O2SAT 96
--- NOTE | 2021-03-11 20:00 | XRR_ITS ---
PROCEDURE INFORMATION: Exam: XR Abdomen Exam date and time: 03/11/2021 8:18 PM Age: 55 years old Clinical indication: Abdominal pain; Epigastric; Additional info: Abd discomfort TECHNIQUE: Imaging protocol: XR of the abdomen. Views: Frontal supine view of the abdomen. 1 View. COMPARISON: CT abdomen pelvis w con* [id number] 01/11/2021 9:18 PM FINDINGS: Heart/Mediastinum: The heart is enlarged. Gastrointestinal tract: Normal. No bowel dilation. No significant colonic stool. Probable phleboliths in the pelvis. No definite nephrolithiasis. Bones/joints: Unremarkable. XR/XR KUB portable [id number] IMPRESSION: No acute findings.
--- NOTE | 2021-03-11 20:04 | ED_ITS ---
HPI - General Adult General: Chief complaint: Abdominal Pain Stated complaint: stomach pain Time Seen by Provider: 03/11/21 20:00 History of Present Illness: HPI narrative: States he is constipated has been using mag citrate twice a day for the last 3 months and today he used it and it did not work and he feels real full he has a colonoscopy scheduled on April 05. Says he also has some heartburn. complaint: Constipation Onset (ago): week(s) Location: abdomen Radiation: non-radiation Severity scale (1-10): 4 Quality: dull Pain Consistency: constant Relieving factors: other (Bowel movements) Associated symptoms: Reports other; Deny chest pain, dyspnea, headache(s), nausea, rash or vomiting Treatments prior to arrival: other (Magnesium citrate twice a day) Review of Systems Const: Denies: fever(s), chills or body aches Eyes: Denies: change in vision or blurry vision ENMT: Denies: throat pain or nasal congestion Card: Denies: chest pain or dyspnea on exertion Resp: Denies: dyspnea, productive cough or non-productive cough GI: Reports: heartburn and constipation; Denies: abdominal pain, nausea or vomiting : Denies: difficulty urinating Musc: Denies: extremity pain Skin/Breast: Denies: rash Neuro: Denies: headache(s) Psych: Denies: anxiety or depression Mateusz/Lymph: Denies: easy bruising PFSH ED PFSH: Medical History Angina pectoris CAD (coronary artery disease) CHF (congestive heart failure) Fever Hiatal hernia History of left heart catheterization HTN (hypertension) Myocardial infarction Obesity Penetrating head injury Pulmonary emboli Pulmonary embolism Viral syndrome Surgical History History of heart artery stent S/P neurological surgery Family History Father Heart disease Alzheimer's dementia Social History Smoking and tobacco status: current every day smoker cigarettes Packs smoked per day: 1 Years cigarettes smoked: 45 Quit status (tobacco): has tried quititng Alcohol intake: current Alcohol intake frequency: holidays/special occasions on ly Lives independently: Yes Household members: significant other Marital status: Life Partner Current occupational status: employed History of recent travel: No Current gender identity: Male Physical Exam Const: COMMON NORMALS: no acute distress, average body habitus and patient oriented x3 HENMT: COMMON NORMALS: normocephalic HEAD & SCALP: normal to inspection and normocephalic FACE & SINUS: normal facial exam Eye: COMMON NORMALS: conjunctivae normal GENERAL EYE: appearance normal, both eyes and all related structures CONJUNCTIVA: Yes conjunctivae normal Neck/C-Spine: COMMON NORMALS: no JVD Chest: COMMONS NORMALS: normal inspection of the chest Resp: COMMON NORMALS: normal respiratory effort and clear to auscultation bilaterally AUSCULTATION: clear to auscultation bilaterally Cardio: COMMON NORMALS: no JVD, regular rate and regular rhythm RATE: regular rate RHYTHM: regular rhythm GI: INSPECTION: Yes normal to inspection AUSCULTATION: Yes Hypoactive bowel sounds present PALPATION: Yes Tenderness to palpation present (GI) (Upper epigastric area) PERCUSSION: dullness to percussion Extremity: COMMON NORMALS: normal to inspection and full ROM Neuro: COMMON NORMALS: patient oriented x3 Course Vital Signs: Vital signs: Vital Signs Temperature 97.3 F L 03/11/21 19:39 Pulse Rate 77 03/11/21 20:52 Respiratory Rate 16 03/11/21 20:52 Blood Pressure 142/88 03/11/21 20:52 Pulse Oximetry 96 03/11/21 20:52 MDM - General Adult 2 MDM Narrative: Medical decision making narrative: Patient presented here with concerns about ongoing constipation issues. Also says he has daily heartburn. Patient was given GI cocktail which completely relieved his heartburn symptoms. Patient was given lactulose and sent home for his constipation. Patient will follow-up with his family medical provider this week and see about getting medicine for his chronic constipation. Patient is scheduled for colonoscopy here on April 05. Discharge Plan Discharge Patient Disposition: Home Clinical Impression: Heartburn Constipation Qualifiers: Constipation type: slow transit constipation Qualified Code(s): K59.01 - Slow transit constipation Condition: Stable Prescriptions: New lactulose 10 gram/15 mL solution 10 g PO DAILY PRN (Reason: constipation) Qty: 237 RF: 0 Protonix [address] for susp in packet 40 mg PO DAILY 28 Days Qty: 28 RF: 0 No Action loratadine 10 mg tablet 10 mg PO DAILY@0530 RF: 0 cholecalciferol (vitamin D3) 125 mcg (5,000 unit) capsule 125 mcg PO DAILY@0530 RF: 0 ascorbic acid (vitamin C) 500 mg capsule 1,500 mg PO DAILY@0530 RF: 0 vitamin B complex [B Complex-Vitamin B12] Tablet 1 tab PO DAILY RF: 0 Eliquis 5 mg tablet 5 mg PO BID Qty: 180 RF: 3 nitroglycerin [Nitrostat] 0.4 mg tablet, sublingual 0.4 mg SUBLINGUAL Q5M PRN (Reason: Chest Pain) Qty: 25 RF: 3 potassium chloride 20 mEq tablet extended release 20 meq PO BID Qty: 180 RF: 3 spironolactone 25 mg tablet 25 mg PO DAILY@0700 Qty: 90 RF: 3 magnesium oxide [MagOx] 400 mg (241.3 mg magnesium) Tablet 400 mg PO DAILY@0700 RF: 0 albuterol sulfate 90 mcg/actuation HFA aerosol inhaler 1 inh INHALATION Q6H PRN (Reason: shortness of breath or wheezing) Qty: 6.7 RF: 0 rosuvastatin [Crestor] 40 mg tablet 40 mg PO DAILY@0530 RF: 0 Plavix 75 mg Tablet 75 mg PO DAILY@0530 RF: 0 sildenafil (pulm.hypertension) 20 mg tablet See Rx Instructions .ROUTE .COMPLEX RF: 0 Discharge Orders: Discharge ED (Routine); Ordered 03/11/21 Ordered By: Jackson Gill Referrals: Juma Gupta, [Primary Care Provider] - Discharge Diet: As Directed Discharge Activity: Increase activity as tolerated Patient Instructions: Constipation (ED), Gastroesophageal Reflux Disease (ED) Activity Restrictions/Additional Instructions: Follow-up with medical provider as directed. Take medications as prescribed. Return to the ER or your medical provider if condition worsens. Please read and understand discharge instructions. If any questions ask please. Coding Level of Care Code ED Senior Government Program Analyst for Effie Fwd Exam Comprehensive
[2021-03-11] MEDS: lidocaine 2% viscous 15 ML, aluminum-mag hydrox-simethicon 30 ML, sucralfate oral liq 1 GM PO (20:21)
[2021-03-11] MEDS: lactulose oral liq 20 gm/30 mL UDC PO (20:23)
[2021-03-11 20:52] VITALS: BP 142/88; PULSE 77; RESP 16; O2SAT 96
== END 2021-03-11 20:56 | disposition home or self-care (01) ==
PROVIDERS: Emergency Provider Nurse Practitioner Family; PCP Electrodiagnostic Medicine
DX: R12 Heartburn (principal); K59.01 Slow transit constipation; Z79.01 Long term (current) use of anticoagulants; I25.10 Atherosclerotic heart disease of native coronary artery without angina pectoris; I11.0 Hypertensive heart disease with heart failure; I50.9 Heart failure, unspecified; I25.2 Old myocardial infarction; F17.210 Nicotine dependence, cigarettes, uncomplicated
CPT/HCPCS: 74018; 99283

== ENCOUNTER 2021-03-31 07:56 | Outpatient (CLI) | payer OTHER, SELFPAY ==
--- NOTE | 2021-03-31 08:27 | FL_ITS ---
WS: [id number] SMALL BOWEL EXAMINATION CLINICAL INFORMATION: CHRONIC CONSTIPATION, ABDOMINAL BLOATING, EPIGASTRIC PAIN COMPARISON: CT abdomen pelvis January 12, 2020 FINDINGS: Initial abdomen radiograph: Normal bowel gas pattern. No abnormal calcification. Contrast material: 50/50 thin barium sulfate suspension. Transit time: 65 Minutes (normal = 30 - 240 minutes) Lobulated filling defect in the ileum right lower quadrant measuring 2.1 x 1.6 cm suspicious for intr aluminal polypoid lesion. Small bowel is otherwise normal in appearance. No small bowel stricture, dilatation, adhesion, or mas s. The terminal ileum and ileocecal valve are normal. Normal small bowel transit time. No evidence of obstructive small bowel. FLUOROSCOPY TIME: 1.5 minutes FL/FL small bowel series* [id number] IMPRESSION: 1. Lobulated filling defect in the ileum right lower quadrant measuring 2.1 x 1.6 cm suspicious for intraluminal polypoid lesion. This can be further evaluat ed with CT [place] [facility] [place] or possibly capsule endo scopy. No evidence of obstruction. 2. Small bowel is otherwise normal in appearance. 3. Normal terminal ileum and ileocecal valve. 4. Normal small bowel transit time.
== END 2021-03-31 07:57 | disposition home or self-care (01) ==
PROVIDERS: PCP Electrodiagnostic Medicine; Visit Provider Electrodiagnostic Medicine
DX: K59.00 Constipation, unspecified (principal); R14.0 Abdominal distension (gaseous); R10.13 Epigastric pain
CPT/HCPCS: 74250; 87635

== ENCOUNTER 2021-04-05 07:52 | Day surgery (SDC) | payer OTHER, SELFPAY ==
--- NOTE | 2021-04-05 08:10 | ANES.PREANE2 ---
Pre-Anesthetic Assessment Pre-Anesthetic Assessment: Height/Weight: Height 1.7 m Preop Diagnosis: History of colon polyps Proposed Procedure: Operation Date: 04/05/21 09:30 Proposed Procedures p Colonoscopy 81118 r19.4(Not Applicable) - Fermin Ordoñez MD Was Beta Anabell taken within 24 hours: N/A Was Clonidine taken within 24 hours: N/A Social: Social History: Alcohol and Tobacco Exam: Pre-Anes Outpt Exam: alert, oriented x 3 and regular rate & rhythm Airway: Submandibular: WNL Cervical ROM: WNL MP: 2 Pulmonary: Pulmonary: COPD and Sleep apnea CV/HEM: CV/HEM: CAD, CHF and HTN GI: GI: GERD Metabolic: Metabolic: Hyperlipidemia and Morbid obesity Anesthetic Plan: ASA status: 3 Anesthesia: MAC Risk of > 500 ml blood loss (7ml/kg in children): No PFSH Anesthesia PFSH: Medical History Angina pectoris CAD (coronary artery disease) CHF (congestive heart failure) Fever Hiatal hernia History of left heart catheterization HTN (hypertension) Myocardial infarction Obesity Penetrating head injury Pulmonary emboli Pulmonary embolism Viral syndrome Surgical History History of heart artery stent S/P neurological surgery Family History Father Heart disease Alzheimer's dementia Social History Smoking and tobacco status: current every day smoker cigarettes Packs smoked per day: 1 Years cigarettes smoked: 45 Quit status (tobacco): has tried quititng Alcohol intake: current Alcohol intake frequency: holidays/special occasions only Lives independently: Yes Household members: significant other Marital status: Life Partner Current occupational status: employed History of recent travel: No Current gender identity: Male Data Anesthesia Cardiac Studies: Holter Monitor 01/04/20
[2021-04-05 08:38] VITALS: BP 121/72; PULSE 75; RESP 16; TEMP 36.9; O2SAT 96; BMI 40.7
--- NOTE | 2021-04-05 09:12 | P.HP_ITS ---
Same Day Surgery H&P Indication for Procedure/HPI DATE OF PROCEDURE: April 05, 2021 CHIEF COMPLAINT/INDICATIONFOR SURGICAL PROCEDURE: History of polyps PREOP DIAGNOSIS: History of colon polyps PLANNED PROCEDRUE: Operation Date: 04/05/21 09:30 Proposed Procedures p Colonoscopy 44409 r19.4(Not Applicable) - Fermin Ordoñez MD Patient comes today as a follow-up status post ultrasound that was done of the right groin and scrotum which showed TESTICULAR ULTRASOUND HISTORY: R10.31 - Right lower quadrant pain COMPARISON: None available. TECHNIQUE: Real-time and color Doppler imaging or utilized to perform a testicular ultrasound. Right testicle: 4.6 cm x 2.8 cm x 2.3 cm. Normal size and echogenicity. No mass or torsion. Normal color Doppler is present throughout. Systolic and diastolic velocities are both present. No significant hydrocele. Right epididymis: Normal sized epididymis. No increased vascularity. Small sperm atocele versus epididymal cyst with a maximum diameter of 3 mm. Left testicle: 4.3 cm x 2.7 cm x 2.7 cm. Normal size and echogenicity. No mass or torsion. Normal color Doppler is present throughout. Systolic and diastolic velocities are both present. No significant hydrocele. Left epididymis: Normal epididymis with no increased vascularity. Small lymph nodes in the RIGHT inguinal canal. Fat-containing LEFT inguinal hernia was also noted on a prior CT. US/US scrotum [id number] IMPRESSION: 1. Normal testicular ultrasound. No mass or torsion. 2. No inguinal hernia identified by ultrasound. Patient today is complaining of his umbilical hernia and it seems that his right groin is not bothering him anymore as well as the scrotal area and external genitalia. Also patient reports to me that he had history of colon polyps and he is due for surveillance colonoscopy. Interim history 04/05/2021 Patient comes today for surveillance colonoscopy ROS All systems have been reviewed negative except as per the above or per problem list Medications/Allergies* Home Medications Medication Instructions Recorded Confirmed Type magnesium oxide [MagOx] 400 mg PO DAILY@0700 11/22/19 04/05/21 History loratadine 10 mg tablet 10 mg PO DAILY@0530 12/18/19 04/05/21 History rosuvastatin [Crestor] 40 mg PO DAILY@0530 10/17/20 06/02/21 History ascorbic acid (vitamin C) 500 mg 1,500 mg PO DAILY@52912/16/20 04/05/21 History capsule cholecalciferol (vitamin D3) 125 125 mcg PO DAILY@52912/16/20 04/05/21 History mcg (5,000 unit) capsule vitamin B complex 1 tab PO DAILY 12/16/20 04/05/21 History sildenafil (pulm.hypertension) See Rx Instructions .ROUTE .COMPLEX 01/11/21 04/05/21 History Allergies/Adverse Reactions Allergy/AdvReac Type Severity Reaction Status Date / Time No Known Allergies Allergy Verified 04/05/21 09:14 Pertinent History/Comorbid Conditions* Medical History (Updated 03/19/21 @ 00:01 by ) Angina pectoris CAD (coronary artery disease) CHF (congestive heart failure) Fever Hiatal hernia History of left heart catheterization HTN (hypertension) Myocardial infarction Obesity Penetrating head injury Pulmonary emboli Pulmonary embolism Viral syndrome Surgical History (Updated 11/22/19 @ 16:29 by Arpit Gomez MD) History of heart artery stent S/P neurological surgery Family History (Updated 11/22/19 @ 16:30 by Arpit Gomez MD) Alzheimer's dementia Father Heart disease Father Social History Smoking and tobacco status: current every day smoker cigarettes Packs smoked per day: 1 Years cigarettes smoked: 45 Quit status (tobacco): has tried quititng Alcohol intake: current Alcohol intake frequency: holidays/special occasions only Lives independently: Yes Household members: significant other Marital status: Life Partner Current occupational status: employed History of recent travel: No Current gender identity: Male Pertinent Exam Findings alert, oriented x 3, clear to auscultation bilaterally, regular rate & rhythm and procedure specific exam findings (Abdominal exam nontender morbidly obese stable chronic incarcerated umb.Her) Recommendations Surgery/Procedure today (Surveillance colonoscopy) Other Plans: Plan of care; After thorough history and physical examination and reviewing the chart, plan to perform surveillance colonoscopy. I discussed with the patient in details the risks,benefits,alternatives and indications.The risk of aspiration, bleeding, soft tissue injury, perforation of the colon and other potential concomitant complications were explained to the patient in details,also the potential need for Laproscoy/Laparotomy to repair any related complications including but not limited to colectomy and or Closotomy.The patient understood this well and did agree to proceed. Rationale was carefully and clearly discussed with the patient.Appropriate informed consent have been reviewed and signed All questions have been answered and all concerns have been addressed to patient's satisfaction. Verbal and written Instructions were given to the patient for colonoscopy prep Coding Level of Care Code Acute Rest Room Matron for Effie Ash
[2021-04-05] MEDS: sodium chloride 0.9% 1,000 ML 30 ML IV (10:00)
[2021-04-05 10:12] VITALS: BP 107/64; PULSE 63; RESP 16; TEMP 36.9; O2SAT 96
[2021-04-05 10:34] VITALS: BP 132/75; PULSE 67; RESP 16; O2SAT 97
--- NOTE | 2021-04-05 12:49 | ANE.PACU2 ---
Inpatient post-anesthesia follow up: Airway intact: Yes Vital signs: Temperature 98.4 F Pulse Rate 67 Respiratory Rate 16 Blood Pressure 132/75 Pulse Oximetry 97 Oxygen Delivery Me thod Room Air Oxygen Flow Rate Fraction of Inspir ed Oxygen Hydration adequate: Yes Nausea and vomiting: No Pain level: 1 Mental status: Baseline
== END 2021-04-05 10:40 | disposition home or self-care (01) ==
PROVIDERS: PCP Electrodiagnostic Medicine; Visit Provider Surgery
PROC: 0DJD8ZZ Inspection of Lower Intestinal Tract, Via Natural or Artificial Opening Endoscopic (ICD-10-PCS; CPT 45378; principal; 2021-04-05 09:30)
DX: Z86.010 Personal history of colon polyps (principal); K57.30 Diverticulosis of large intestine without perforation or abscess without bleeding; I25.10 Atherosclerotic heart disease of native coronary artery without angina pectoris; I11.0 Hypertensive heart disease with heart failure; I50.9 Heart failure, unspecified; I25.2 Old myocardial infarction; E66.9 Obesity, unspecified; Z68.41 Body mass index [BMI] 40.0-44.9, adult; Z86.711 Personal history of pulmonary embolism; F17.210 Nicotine dependence, cigarettes, uncomplicated
CPT/HCPCS: 45378; 96360; J2704; J7030

== ENCOUNTER 2021-10-16 10:54 | Emergency (ER) | payer OTHER, SELFPAY ==
--- NOTE | 2021-10-16 10:56 | XR_ITS ---
WS: [id number] CHEST XRAY TECHNIQUE: Portable chest. CLINICAL INFORMATION: chest pain COMPARISON: October 17, 2020 FINDINGS: Shallow inspiration. Heart: Cardiomegaly. Lungs: Lungs are clear. No consolidation or pleural effusion. Bones: Normal visualized bony structures. XR/XR chest 1V portable [id number] IMPRESSION: 1. Shallow inspiration with cardiomegaly. 2. Chest otherwise unremarkable.
--- NOTE | 2021-10-16 10:57 | ECG_ITS ---
[facility] Test Date: 2021-10-16 Pat Name: Fransico Osborn Department: Room: Gender: Male Software Project Manager: : 1965 Requested By: Bob Hanna Order Number: [id number] Michelle MD: Sonny Eldridge M.D. Measurements Intervals [place] Rate: 76 P: 43 CO: 164 QRS: 6 QRSD: 94 T: 62 QT: 397 QTc: 448 Interpretive Statements SINUS RHYTHM INTERPRETATION BASED ON A DEFAULT AGE OF 40 YEARS Compared to ECG 10/18/2020 03:15:35 Sinus bradycardia no longer present ST (T wave) deviation no longer present Electronically Signed On 10-16-2021 20:45:22 CONSTRUCTION CONTROLLER by Sonny Eldridge M.D. [email or web address]
--- NOTE | 2021-10-16 10:57 | W.ED.CHESTPA ---
HPI - Chest Pain General: Chief Complaint: Chest Pain Stated Complaint: CHEST PAIN/SOB Time Seen by Provider: 10/16/21 10:55 History of Present Illness: HPI narrative: 38-year-old male presents emergency room with complaints of chest discomfort. He recently stopped taking all of his medications. Is a history of pulmonary hypertension and some heart failure he has had been on sildenafil for pulmonary hypertension. He is only had twinges of what he would describe his chest pain. He has been off and on for the last week. He has not had any radiation of pain to the neck jaw back or arms. Patient has known history of coronary disease and previously has had angiograms done with stenting x2 in the RCA in October 2020 he was admitted with what appeared to be unstable angina had no significant delta troponin ultimately ended up getting an angiogram done which was unremarkable. There is no evidence of any active coronary artery disease or significant lesions. In addition to this patient has history of diastolic congestive heart failure sleep apnea obesity alcohol abuse previous CVA pulmonary emboli for which she has been on Eliquis. MD complaint: chest pain Pertinent past history: coronary artery disease Onset (ago): day(s) (-) Timing of current episode: episodic Onset: during rest Pain location: left chest Pain radiation: none Severity: mild Quality: aching Relieving factors: nothing Exacerbating factors: supine Context: non compliance with medication Associated symptoms: Reports dyspnea and leg edema; Deny abdominal pain, diaphoresis, fever(s), nausea, palpitations, sense of impending doom, syncope or vomiting Treatment prior to arrival: none Review of Systems Const: Denies: fever(s) or diaphoresis ENMT: Denies: throat pain, ear or mastoid pain, nasal discharge or nasal congestion Card: Denies: palpitations or syncope Resp: Reports: dyspnea GI: Denies: abdominal pain, nausea or vomiting : Denies: flank pain, dysuria, urinary frequency or urinary urgency Skin/Breast: Denies: rash or pruritus PFSH ED PFSH: Medical History Angina pectoris CAD (coronary artery disease) CHF (congestive heart failure) Diverticulosis Fever Hiatal hernia History of colon polyps History of left heart catheterization HTN (hypertension) Myocardial infarction Obesity Penetrating head injury Pulmonary emboli Pulmonary embolism Viral syndrome Surgical History History of heart artery stent S/P neurological surgery Family History Father Heart disease Alzheimer's dementia Social History Smoking and tobacco status: current every day smoker cigarettes Packs smoked per day: 1 Years cigarettes smoked: 45 Quit status (tobacco): has tried quititng Alcohol intake: current Alcohol intake frequency: holidays/special occasions only Lives independently: Yes Household members: significant other Marital status: Life Partner Current occupational status: employed History of recent travel: No Current gender identity: Male Physical Exam Const: GENERAL APPEARANCE: cooperative and comfortable ORIENTATION/CONSCIOUSNESS: Yes awake, Yes oriented to person, Yes oriented to place and Yes oriented to time HENMT: COMMON NORMALS: normocephalic, atraumatic, hearing grossly normal bilaterally, external ears normal, EAC's normal, TM's normal bilaterally, Normal nasal mucous membranes and turbinates present, moist oral mucous membranes and oropharynx normal HEAD & SCALP: normocephalic and atraumatic NOSE: Normal nasal mucous membranes and turbinates present EXTERNAL EAR: Yes external ears normal EXTERNAL AUDITORY CANAL: EAC's normal TYMPANIC MEMBRANE: TM's normal bilaterally Neck/C-Spine: COMMON NORMALS: no JVD Resp: COMMON NORMALS: normal respiratory effort, No retractions, No use of accessory muscles and clear to auscultation bilaterally AUSCULTATION: clear to auscultation bilaterally Cardio: COMMON NORMALS: no JVD, regular rate, regular rhythm and No murmurs present (Cardio) RATE: regular rate RHYTHM: regular rhythm GI: COMMON NORMALS: Soft to palpation and No hepatosplenomegaly present AUSCULTATION: Yes normoactive bowel sounds PALPATION: Yes Soft to palpation, No Tenderness to palpation present (GI), No Guarding due to palpation present (GI) and Yes No hepatosplenomegaly present OTHER: Incarcerated umbilical hernia painful only on attempts to palpate or reduce Extremity: COMMON NORMALS: normal to inspection, capillary refill normal, no clubbing, cyanosis or edema, no calf tenderness and no pedal edema Neuro: SENSORIUM/ORIENTATION: Yes oriented to person, Yes oriented to place and Yes oriented to time Skin: COMMON NORMALS: no rashes or lesions noted GENERAL SKIN EXAM: no rashes or lesions noted Course Vital Signs: Vital signs: Vital Signs Temperature 98.4 F 10/16/21 11:02 Pulse Rate 71 10/16/21 14:39 Respiratory Rate 18 10/16/21 14:39 Blood Pressure 119/56 10/16/21 14:39 Pulse Oximetry 97 10/16/21 14:39 MDM - Chest Pain MDM Narrative: Medical decision making narrative: As patient restart all of his previously prescribed medications. Organ to get him set up for Lexiscan sestamibi stress test with any worsening problems or recurrence of symptoms encouraged to return to the emergency room. ST incarcerated umbilical hernia if that begins to be painful while at rest or he has nausea or vomiting he should redevelop be reevaluated. At this point is a chronic thing and is unchanged. Lab Data: Labs: Lab Results 10/16/21 10/16/21 10/16/21 11:07 11:07 11:07 WBC 6.9 10^3/uL 10^3/ uL (4.0-10.0) RBC 5.52 10^6/uL H 10 ^6/uL (4.1-5.3) Hgb 15.1 g/dL g/dL (11.7-16.6) Hct 47.0 % % (42.0-52.0) MCV 85.1 fl fl (80-94) MCH 27.4 pg L pg (28.0-34.0) MCHC 32.1 g/dL g/dL (30.0-36.0) RDW 13.0 % % (12.1-15.1) Plt Count 215 10^3/cmm 10^3 /cmm (130-400) MPV 9.7 fL fL (7.4-10.4) Neut % (Auto) 59.2 % % Lymph % (Auto) 27.7 % % [place] % (Auto) 10.4 % % Eos % (Auto) 1.9 % % Baso % (Auto) 0.4 % % Neut # (Auto) 4.08 10^3/uL 10^3 /uL (1.8-7.7) Lymph # (Auto) 1.9 10^3/uL 10^3/ uL (0.8-4.8) [place] # (Auto) 0.7 10^3/uL 10^3/ uL (0.2-0.9) Eos # (Auto) 0.1 10^3/uL 10^3/ uL (0.0-0.8) Baso # (Auto) 0.0 10^3/uL 10^3/ uL (0.0-0.1) Nucleated RBC % (a uto) 0 % % Nucleated RBCs # 0.0 /100WBC /100W BC Sodium 137 mmol/L mmol/L (136-145) Potassium 3.8 mmol/L mmol/L (3.5-5.1) Chloride 99 mmol/L mmol/L (98-107) Carbon Dioxide 28 mmol/L mmol/L (22-29) Anion Gap 13.8 (5-19) BUN 12 mg/dL mg/dL (6-20) Creatinine 0.8 mg/dL mg/dL (0.7-1.2) GFR Calculation 99.3 mL/min mL/mi n (90-130) Glucose 132 mg/dL H mg/dL (65-115) Calculated Osmolal ity 286 mOsm/kg mOsm/ kg (285-295) Calcium 8.7 mg/dL mg/dL (8.5-10.5) Total Bilirubin 0.2 mg/dL mg/dL (0.15-1.2) AST 15 U/L U/L (0-40) ALT 22 U/L U/L (0-41) Alkaline Phosphata se 65 IU/L IU/L (40-130) Creatine Kinase 92 U/L U/L (39-308) Troponin T Baselin e 8 ng/L ng/L (0-15) Troponin T [address] [place] Delta Troponin T NT-Pro-B Natriuret Pep Total Protein 6.8 g/dL g/dL (6.6-8.7) Albumin 4.4 g/dL g/dL (3.5-5.2) Globulin 2.4 g/dL g/dL (1.3-4.6) Urine Color Urine Appearance Urine pH Ur Specific Gravit y Urine Protein Urine Glucose (UA) Urine Ketones Urine Blood Urine Nitrate Urine Bilirubin Urine Urobilinogen Ur Leukocyte Linda ase 10/16/21 10/16/21 10/16/21 11:07 11:50 13:04 WBC RBC Hgb Hct MCV MCH MCHC RDW Plt Count MPV Neut % (Auto) Lymph % (Auto) [place] % (Auto) Eos % (Auto) Baso % (Auto) Neut # (Auto) Lymph # (Auto) [place] # (Auto) Eos # (Auto) Baso # (Auto) Nucleated RBC % (a uto) Nucleated RBCs # Sodium Potassium Chloride Carbon Dioxide Anion Gap BUN Creatinine GFR Calculation Glucose Calculated Osmolal ity Calcium Total Bilirubin AST ALT Alkaline Phosphata se Creatine Kinase Troponin T Baselin e Troponin T [address] [place] 6.51 ng/L ng/L (0-15) Delta Troponin T -1.49 ABS# L ABS# (0-10) NT-Pro-B Natriuret Pep 7 pg/mL pg/mL (0-125) Total Protein Albumin Globulin Urine Color Straw (Yellow) Urine Appearance Clear (CLEAR) Urine pH 5 (5-7) Ur Specific Gravit y 1.010 (1.005-1.030) Urine Protein Neg (Negative) Urine Glucose (UA) Norm (Normal) Urine Ketones Negative (Negative) Urine Blood Neg (Negative) Urine Nitrate Negative (Negative) Urine Bilirubin Neg (Negative) Urine Urobilinogen Norm mg/dL mg/dL (Negative) Ur Leukocyte Linda ase Negative (Negative) Discharge Plan Discharge Patient Disposition: Home Clinical Impression: Pulmonary HTN, ADRIAN (obstructive sleep apnea), Morbid obesity, HTN (hypertension), CAD (coronary artery disease), Incarcerated umbilical hernia Condition: Stable Prescriptions: No Action nitroglycerin [Nitrostat] 0.4 mg tablet, sublingual 0.4 mg SUBLINGUAL Q5M PRN (Reason: Chest Pain) Qty: 25 RF: 3 potassium chloride 20 mEq tablet extended release 20 meq PO BID PRN (Reason: rx last filled 03/13/21 90d/s-see pharmacy comments) RF: 0 spironolactone 25 mg tablet 25 mg PO DAILY RF: 0 bumetanide 2 mg tablet 2 mg PO BID RF: 0 sildenafil 25 mg Tablet 25 - 50 mg PO PRN PRN (Reason: Erectile Dysfunction) RF: 0 Aspir-81 81 mg Tablet,Delayed Release (Dr/Ec) 81 mg PO .EVERY 2-3 DAYS RF: 0 Discharge Orders: Discharge ED (Routine); Ordered 10/16/21 Ordered By: Bob Otto Referrals: Juma Gupta, [Primary Care Provider] - Discharge Diet: Usual diet Discharge Activity: Increase activity as tolerated Patient Instructions: Opioid Safety Activity Restrictions/Additional Instructions: Resume all your previously prescribed medications and follow-up with Dr. Gupta within the week. Return to emergency room if you have further problems. 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
[2021-10-16 11:02] VITALS: BP 156/85; PULSE 77; RESP 21; TEMP 36.9; O2SAT 98; BMI 41.5
[2021-10-16 11:15] LABS: Basophils % 0.4 %; Eosinophils # 0.1 10^3/uL (0.0-0.8); Eosinophils % 1.9 %; Hemoglobin 15.1 g/dL (11.7-16.6); Lymphocytes # 1.9 10^3/uL (0.8-4.8); Lymphocytes % 27.7 %; Mean Corpuscular HGB Conc 32.1 g/dL (30.0-36.0); Mean Corpuscular Hemoglobin 27.4 pg (28.0-34.0); Mean Corpuscular Volume 85.1 fl (80-94); Mean Platelet Volume 9.7 fL (7.4-10.4); Monocytes # 0.7 10^3/uL (0.2-0.9); Monocytes % 10.4 %; Neutrophils # 4.08 10^3/uL (1.8-7.7); Neutrophils % 59.2 %; Nucleated Red Blood Cells % 0 %; Platelet Count 215 10^3/cmm (130-400); Red Blood Count 5.52 10^6/uL (4.1-5.3); White Blood Count 6.9 10^3/uL (4.0-10.0)
--- NOTE | 2021-10-16 11:37 | PC.PHAR ---
pt states he takes care of his own medications-pt states he stop taking all his meds in pt states he just restarted taking bumetanide ([facility] and [facility] states they havent filled rx for pt) and spironolactone 25mg bid last filled on 03/03/21 90d/s has 3 refills at [facility] and [facility] 20meq bid last filled 03/13/21 90d/s has 2 refills-pt states he was suppose to be on eliquis 5mg bid pt states not taken since january or february [facility] last filled dec 2019 and [facility] states they have one on hold for 5mg bid from dec 2020 pt states he got in the mail he thinks-pt states he doesnt take lactulose last filled on 03/16/21 30d/s has 11 refills and prilosec 40mg bid last filled 03/16/21 30d/s with one refill-notes are made in the pharmacy comments
[2021-10-16 11:38] LABS: Alanine Aminotransferase 22 U/L (0-41); Albumin Level 4.4 g/dL (3.5-5.2); Alkaline Phosphatase 65 IU/L (40-130); Anion Gap 13.8 (5-19); Aspartate Amino Transferase 15 U/L (0-40); Blood Urea Nitrogen 12 mg/dL (6-20); Calcium 8.7 mg/dL (8.5-10.5); Carbon Dioxide 28 mmol/L (22-29); Chloride 99 mmol/L (98-107); Creatine Phosphokinase 92 U/L (39-308); Creatinine Clr Calc Pharmacy 124.9088; Globulin 2.4 g/dL (1.3-4.6); Glomerular Filtration Rate 99.3 mL/min (90-130); Glucose 132 mg/dL (65-115); Osmolality Calculated 286 mOsm/kg (285-295); Potassium 3.8 mmol/L (3.5-5.1); Sodium 137 mmol/L (136-145); Total Bilirubin 0.2 mg/dL (0.15-1.2); Total Protein 6.8 g/dL (6.6-8.7)
[2021-10-16 11:40] LABS: Troponin(5th) Baseline 8 ng/L (0-15)
[2021-10-16 11:49] LABS: NT Pro B Type Natriuretic Pept 7 pg/mL (0-125)
[2021-10-16 12:03] LABS: Add Urine Microscopic? NO; Charge for UA Resulting for Rev
[2021-10-16 12:21] VITALS: BP 126/61; PULSE 77; RESP 16; O2SAT 96
[2021-10-16 12:21] LABS: Bilirubin Urine Neg (Negative); Blood Urine Neg (Negative); Glucose Urine UA Norm (Normal); Ketones Urine Negative (Negative); Leukocyte Esterase Urine Negative (Negative); Nitrate Urine Negative (Negative); Protein Urine Neg (Negative); Urine Appearance Clear (CLEAR); Urine Color Straw (Yellow); Urobilinogen Urine Norm (Negative); pH Urine 5 (5-7)
--- NOTE | 2021-10-16 12:57 | ECG_ITS ---
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 Measurements Intervals [place] Rate: 59 P: 44 CT: 169 QRS: 20 QRSD: 94 T: 57 QT: 404 QTc: 402 Interpretive Statements SINUS BRADYCARDIA NONSPECIFIC T-WAVE ABNORMALITY Compared to ECG 10/16/2021 11:06:36 T-wave abnormality now present Sinus rhythm no longer present Electronically Signed On 10-18-2021 0:16:48 MEDICAL AND SCIENTIFIC ILLUSTRATOR by Sonny Eldridge M.D. [email or web address] Blairohiohealth berger hospitalDigital Development Partners/store/[id number]
[2021-10-16 13:41] LABS: Troponin 5 2HR 6.51 ng/L (0-15)
[2021-10-16 13:46] LABS: Troponin 5 2HR Delta -1.49 ABS# (0-10)
[2021-10-16 14:39] VITALS: BP 119/56; PULSE 71; RESP 18; O2SAT 97
--- NOTE | 2021-10-19 15:04 | DCPLANNER ---
senior center manager had message to schedule an outpatient stress test for patient. senior center manager faxed signed order to centralized scheduling, who will call patient with appointment information.
--- NOTE | 2021-11-02 06:59 | DCPLANNER ---
Patient has an outpatient stress test scheduled for Saturday, November 06, 2021 at 10::00. Centralized scheduling will call patient with appointment information.
--- NOTE | 2021-11-21 08:09 | DCPLANNER ---
Patient had a out patient stress scheduled - patient did not attend appointment.
== END 2021-10-16 14:45 | disposition home or self-care (01) ==
PROVIDERS: Emergency Provider Family Medicine; PCP Electrodiagnostic Medicine
DX: I27.20 Pulmonary hypertension, unspecified (principal); G47.33 Obstructive sleep apnea (adult) (pediatric); E66.01 Morbid (severe) obesity due to excess calories; Z68.41 Body mass index [BMI] 40.0-44.9, adult; I25.10 Atherosclerotic heart disease of native coronary artery without angina pectoris; K42.0 Umbilical hernia with obstruction, without gangrene; I11.0 Hypertensive heart disease with heart failure; I50.9 Heart failure, unspecified; I25.2 Old myocardial infarction; Z79.82 Long term (current) use of aspirin; Z86.711 Personal history of pulmonary embolism; F17.210 Nicotine dependence, cigarettes, uncomplicated
CPT/HCPCS: 36415; 71045; 80053; 81003; 82550; 83880; 84484; 85025; 93005; 99283

== ENCOUNTER 2022-01-05 20:47 | Emergency (ER) | payer OTHER, SELFPAY ==
[2022-01-05 21:02] VITALS: BP 142/78; PULSE 81; RESP 18; TEMP 36.8; O2SAT 97; BMI 43.0
--- NOTE | 2022-01-05 21:04 | XRR_ITS ---
PROCEDURE INFORMATION: Exam: XR Chest Exam date and time: 01/05/2022 9:04 PM Age: 56 years old Clinical indication: Pain; Angina pectoris; Additional info: Chest pain TECHNIQUE: Imaging protocol: XR of the chest. Views: 1 view. COMPARISON: CR XR chest 1V portable [id number] 10/16/2021 11:10 AM FINDINGS: Lungs: Unremarkable. No consolidation. Pleural spaces: Unremarkable. No pleural effusion. No pneumothorax. Heart/Mediastinum: Unremarkable. No cardiomegaly. Bones/joints: Unremarkable. XR/XR chest 1V portable [id number] IMPRESSION: No acute findings.
--- NOTE | 2022-01-05 21:04 | ECG_ITS ---
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 Measurements Intervals [place] Rate: 82 P: 45 ME: 169 QRS: 13 QRSD: 97 T: 62 QT: 362 QTc: 425 Interpretive Statements SINUS RHYTHM Compared to ECG 10/16/2021 13:10:43 Sinus bradycardia no longer present T-wave abnormality no longer present Electronically Signed On 01-06-2022 8:26:18 FUEL MANAGER by Jyotsna Berkowitz M.D. [email or web address] [email or web address] [facility].[employer]/[id number]
[2022-01-05 21:59] LABS: Basophils % 0.4 %; Eosinophils # 0.1 10^3/uL (0.0-0.8); Eosinophils % 1.1 %; Hematocrit 38.9 % (42.0-52.0); Hemoglobin 12.7 g/dL (11.7-16.6); Lymphocytes # 1.9 10^3/uL (0.8-4.8); Lymphocytes % 24.2 %; Mean Corpuscular HGB Conc 32.6 g/dL (30.0-36.0); Mean Corpuscular Hemoglobin 27.4 pg (28.0-34.0); Mean Platelet Volume 9.4 fL (7.4-10.4); Monocytes # 0.9 10^3/uL (0.2-0.9); Monocytes % 11.1 %; Neutrophils # 4.99 10^3/uL (1.8-7.7); Neutrophils % 62.9 %; Nucleated Red Blood Cells % 0 %; Platelet Count 340 10^3/cmm (130-400); Red Blood Count 4.63 10^6/uL (4.1-5.3); Red Cell Distribution Width 12.9 % (12.1-15.1); White Blood Count 7.9 10^3/uL (4.0-10.0)
[2022-01-05] MEDS: morphine 4 mg/mL SDV 1 mL IVP (22:02)
[2022-01-05] MEDS: lidocaine 2% viscous 15 ML, aluminum-mag hydrox-simethicon 30 ML, sucralfate oral liq 1 GM PO (22:03)
[2022-01-05] MEDS: ondansetron 2 mg/ML SDV 2 mL 4 MG IVP (22:03)
[2022-01-05 22:13] LABS: Troponin(5th) Baseline 9 ng/L (0-15)
[2022-01-05 22:21] LABS: Alanine Aminotransferase 18 U/L (0-41); Albumin Level 4.1 g/dL (3.5-5.2); Alkaline Phosphatase 65 IU/L (40-130); Anion Gap 17.9 (5-19); Aspartate Amino Transferase 15 U/L (0-40); Blood Urea Nitrogen 12 mg/dL (6-20); Calcium 9.4 mg/dL (8.5-10.5); Carbon Dioxide 24 mmol/L (22-29); Chloride 98 mmol/L (98-107); Globulin 2.7 g/dL (1.3-4.6); Glomerular Filtration Rate 115.8 mL/min (90-130); Glucose 182 mg/dL (65-115); Lipase 31 U/L (13-60); NT Pro B Type Natriuretic Pept 17 pg/mL (0-125); Osmolality Calculated 286 mOsm/kg (285-295); Potassium 3.9 mmol/L (3.5-5.1); Sodium 136 mmol/L (136-145); Total Bilirubin 0.2 mg/dL (0.15-1.2); Total Protein 6.8 g/dL (6.6-8.7)
[2022-01-05 23:04] LABS: Troponin 5 2HR 7.44 ng/L (0-15)
--- NOTE | 2022-01-05 23:48 | ECG_ITS ---
[facility] Test Date: 2022-01-05 Pat Name: Fransico Osborn Department: Room: Gender: Male Director Of Hospitality: : 1965 Requested By: Thanh Chun Order Number: [id number] Michelle MD: Jyotsna Berkowitz M.D. Measurements Intervals [place] Rate: 76 P: 48 CO: 169 QRS: 31 QRSD: 92 T: 54 QT: 376 QTc: 424 Interpretive Statements SINUS RHYTHM Compared to ECG 01/05/2022 21:00:44 No significant changes Electronically Signed On 01-06-2022 8:42:08 ROTARY SHEAR OPERATOR by Jyotsna Berkowitz M.D. [email or web address] disksh[facility].[employer]/store/[id number]
[2022-01-06 00:32] LABS: Troponin 5 6HR 58.96 ng/L (0-15)
[2022-01-06 00:36] LABS: Troponin 5 6HR Delta 49.96 ng/L (0-12)
--- NOTE | 2022-01-06 00:38 | W.ED.CHESTPA ---
HPI - Chest Pain General: Chief Complaint: Chest Pain Stated Complaint: Chest Pain Time Seen by Provider: 01/05/22 21:13 Source: patient History of Present Illness: 56-year-old gentleman with a prior history of coronary disease. He presents with chest pain that started this afternoon after walking across his car a lot. He would have taken nitroglycerin, but he is out. He had shortness of breath with it as well. He still having some discomfort. He ate [place] Citizen food later, which did not seem to help his problem, and may have made it worse. Its been at least 2 years since his last stress test. MD complaint: chest pain Pertinent past history: coronary artery disease and prior [place] Onset (ago): hour(s) Timing of current episode: constant Onset: during exertion Pain location: substernal and left chest Pain radiation: left arm Severity: moderate Quality: aching Relieving factors: nothing Exacerbating factors: exertion Associated symptoms: Reports palpitations; Deny abdominal pain, diaphoresis, dyspnea, fever(s), nausea or vomiting Treatment prior to arrival: none Review of Systems Const: Denies: fever(s) or diaphoresis ENMT: Denies: throat pain Card: Reports: chest pain and palpitations Resp: Denies: dyspnea GI: Denies: abdominal pain, nausea or vomiting Neuro: Reports: headache(s) PFSH ED PFSH: Medical History Angina pectoris CAD (coronary artery disease) CHF (congestive heart failure) Diverticulosis Fever Hiatal hernia History of colon polyps History of left heart catheterization HTN (hypertension) Myocardial infarction Obesity Penetrating head injury Pulmonary emboli Pulmonary embolism Viral syndrome Surgical History History of heart artery stent S/P neurological surgery Family History Father Heart disease Alzheimer's dementia Social History Smoking and tobacco status: current every day smoker cigarettes Packs smoked per day: 1 Years cigarettes smoked: 45 Quit status (tobacco): has tried quititng Alcohol intake: current Alcohol intake frequency: holidays/special occasions only Lives independently: Yes Household members: significant other Marital status: Life Partner Current occupational status: employed History of recent travel: No Current gender identity: Male Physical Exam Const: COMMON NORMALS: no acute distress HENMT: COMMON NORMALS: normocephalic, atraumatic and Normal external nose present HEAD & SCALP: normocephalic and atraumatic FACE & SINUS: normal facial exam NOSE: Normal external nose present Eye: COMMON NORMALS: Equal, round and reactive pupils present and EOMs intact bilaterally PUPIL: Yes Equal, round and reactive pupils present Chest: COMMONS NORMALS: normal inspection of the chest CHEST: Yes tenderness Resp: COMMON NORMALS: normal respiratory effort, No use of accessory muscles and clear to auscultation bilaterally AUSCULTATION: clear to auscultation bilaterally Cardio: COMMON NORMALS: regular rate and regular rhythm RATE: regular rate RHYTHM: regular rhythm GI: COMMON NORMALS: Normal to inspection, nondistended, normoactive bowel sounds present and Soft to palpation PALPATION: Yes Soft to palpation and Yes Tenderness to palpation present (GI) (Epigastric) Course Vital Signs: Vital signs: Vital Signs Temperature 98.3 F 01/05/22 21:02 Pulse Rate 81 01/05/22 21:02 Respiratory Rate 18 01/05/22 21:02 Blood Pressure 142/78 01/05/22 21:02 Pulse Oximetry 97 01/05/22 21:02 MDM - Chest Pain Medical Decision Making 56-year-old male with a history of coronary disease who comes in with chest pain. His CBC is normal. His BMP is essentially normal save a sugar of 182. His first troponin was 9 with a 2-hour of 7. Both of these are negative. His EKGs were normal showing a normal sinus rhythm, normal axis and intervals, with a rate of [address] changes. Chest x-ray is normal. Pain improved after GI cocktail and morphine here. There is a 6-hour troponin that was erroneously attached to his chart that was elevated. This is not his 6-hour troponin, as the patient was not here nearly 6 hours to draw it. The patient wished to go home if his testing was negative. He will be prescribed nitroglycerin, so will have some at home, as he did not have any this evening. Outpatient stress has been ordered for the patient. Lab Data : 01/05/22 21:34 01/05/22 21:34 Radiology Impressions Chest X-Ray 01/05/22 21:04 IMPRESSION: No acute findings. Laboratory Results WBC 7.9 10^3/uL (4.0-10.0) 01/05/22 21:34 RBC 4.63 10^6/uL (4.1-5.3) 01/05/22 21:34 Hgb 12.7 g/dL (11.7-16.6) 01/05/22 21:34 Hct 38.9 % (42.0-52.0) L 01/05/22 21:34 MCV 84.0 fl (80-94) 01/05/22 21:34 MCH 27.4 pg (28.0-34.0) L 01/05/22 21:34 MCHC 32.6 g/dL (30.0-36.0) 01/05/22:34 RDW 12.9 % (12.1-15.1) 01/05/22 21:34 Plt Count 340 10^3/cmm (130-400) 01/05/22:34 MPV 9.4 fL (7.4-10.4) 01/05/22 21:34 Neut % (Auto) 62.9 % 01/05/22 21:34 Lymph % (Auto) 24.2 % 01/05/22 21:34 [place] % (Auto) 11.1 % 01/05/22:34 Eos % (Auto) 1.1 % 01/05/22:34 Baso % (Auto) 0.4 % 01/05/22:34 Neut # (Auto) 4.99 10^3/uL (1.8-7.7) 01/05/22 21:34 Lymph # (Auto) 1.9 10^3/uL (0.8-4.8) 01/05/22 21:34 [place] # (Auto) 0.9 10^3/uL (0.2-0.9) 01/05/22 21:34 Eos # (Auto) 0.1 10^3/uL (0.0-0.8) 01/05/22 21:34 Baso # (Auto) 0.0 10^3/uL (0.0-0.1) 01/05/22:34 Nucleated RBC % (auto) 0 % 01/05/22 21:34 Nucleated RBCs # 0.0 /100WBC 01/05/22 21:34 Sodium 136 mmol/L (136-145) 01/05/22 21:34 Potassium 3.9 mmol/L (3.5-5.1) 01/05/22 21:34 Chloride 98 mmol/L (98-107) 01/05/22 21:34 Carbon Dioxide 24 mmol/L (22-29) 01/05/22 21:34 Anion Gap 17.9 (5-19) 01/05/22 21:34 BUN 12 mg/dL (6-20) 01/05/22 21:34 Creatinine 0.7 mg/dL (0.7-1.2) 01/05/22 21:34 GFR Calculation 115.8 mL/min (90-130) 01/05/22 21:34 Glucose 182 mg/dL (65-115) H 01/05/22 21:34 Calculated Osmolality 286 mOsm/kg (285-295) 01/05/22 21:34 Calcium 9.4 mg/dL (8.5-10.5) 01/05/22 21:34 Total Bilirubin 0.2 mg/dL (0.15-1.2) 01/05/22 21:34 AST 15 U/L (0-40) 01/05/22 21:34 ALT 18 U/L (0-41) 01/05/22 21:34 Alkaline Phosphatase 65 IU/L (40-130) 01/05/22 21:34 Troponin T Baseline 9 ng/L (0-15) 01/05/22 21:34 Troponin T 120 Minute 7.44 ng/L (0-15) 01/05/22 22:38 Delta Troponin T Not Reportable 01/05/22 22:38 Troponin T Hi Sens 6Hr 58.96 ng/L (0-15) H 01/06/22 00:05 Troponin T Hi Sens 6Hr Delta 49.96 ng/L (0-12) H* 01/06/22 00:05 NT-Pro-B Natriuret Pep 17 pg/mL (0-125) 01/05/22 21:34 Total Protein 6.8 g/dL (6.6-8.7) 01/05/22 21:34 Albumin 4.1 g/dL (3.5-5.2) 01/05/22 21:34 Globulin 2.7 g/dL (1.3-4.6) 01/05/22 21:34 Lipase 31 U/L (13-60) 01/05/22 21:34 Discharge Plan Discharge Patient Disposition: Home Clinical Impression: Chest pain Condition: Stable Prescriptions: Continued Nitrostat 0.4 mg tablet, sublingual 0.4 mg SUBLINGUAL Q5M PRN (Reason: Chest Pain) Qty: 25 3RF No Action potassium chloride 20 mEq tablet extended release 20 meq PO BID PRN (Reason: rx last filled 03/13/21 90d/s-see pharmacy comments) 0RF spironolactone 25 mg tablet 25 mg PO DAILY 0RF bumetanide 2 mg tablet 2 mg PO BID 0RF sildenafil 25 mg Tablet 25 - 50 mg PO PRN PRN (Reason: Erectile Dysfunction) 0RF Aspir-81 81 mg Tablet,Delayed Release (Dr/Ec) 81 mg PO .EVERY 2-3 DAYS 0RF Discharge Orders: Discharge ED (Routine); Ordered 01/05/22 Ordered By: Thanh Patterson Referrals: Juma Gupta DO [Primary Care Provider] - 1-3 days Discharge Diet: Advance as tolerated Discharge Activity: Increase activity as tolerated Activity Restrictions/Additional Instructions: Return for return of or worsening chest discomfort, shortness of breath, vomiting, cough, any other concerning symptoms. You have been written for a cardiac stress test as an outpatient. You should get a call from our case folder at the beginning of the week to set this up. 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
--- NOTE | 2022-01-09 06:00 | DCPLANNER ---
Addendum entered by Emily Ruth 03/08/22 20:52: Patient had an out patient stress test on 02.22.22 - patient did attend appointment. Original Note: plant general manager had message to schedule an outpatient stress test for patient. plant general manager faxed signed order to centralized scheduling, who will call patient with appointment information.
== END 2022-01-06 00:15 | disposition home or self-care (01) ==
PROVIDERS: Emergency Medicine; Emergency Provider Emergency Medicine; PCP Electrodiagnostic Medicine
DX: R07.9 Chest pain, unspecified (principal); Z79.82 Long term (current) use of aspirin; I25.10 Atherosclerotic heart disease of native coronary artery without angina pectoris; I11.0 Hypertensive heart disease with heart failure; I50.9 Heart failure, unspecified; I25.2 Old myocardial infarction; Z86.711 Personal history of pulmonary embolism; F17.210 Nicotine dependence, cigarettes, uncomplicated
CPT/HCPCS: 71045; 80053; 83690; 83880; 84484; 85025; 93005; 96374; 96375; 99284; J2270; J2405

== ENCOUNTER 2022-02-22 07:33 | Outpatient (CLI) | payer OTHER, SELFPAY ==
[2022-02-22 08:17] VITALS: BMI 42.3
--- NOTE | 2022-02-22 08:17 | ECG_ITS ---
[facility] Test Date: 2022-02-22 Pat Name: Fransico Osborn Department: Room: Gender: Male Business Controller: Luz Ghosh : 1965 Requested By: Bob Hanna Order Number: [id number] Michelle MD: Sonny Eldridge M.D. Interpretive Statements NAME OF STUDY: LEXISCAN SESTAMIBI STRESS TEST INDICATION: Chest Pain, RESULTS TO DR. PRICE AND DR. PRITCHETT PROCEDURE: At the baseline, the EKG revealed normal sinus rhythm with a normal ST Ts. The baseline blood pressure was 133/71 mm Hg with a heart rate of 87 beats/min. Lexiscan was infused over a period of 20 seconds. A total of 0.4 milligrams of Lexiscan was infused. The stress phase was continued for a total of 5 minutes. Heart rate at the end of the stress phase was 87 with a blood pressure 133/71. The EKG at the peak infusion revealed no significant changes. Sestamibi was injected 20 seconds after the Lexiscan infusion. Blood pressure at the end of the recovery phase was 141/75 with a heart rate of 88 per minute. CONCLUSION: 1. No significant EKG changes with the LexiScan infusion 2. No LexiScan induced chest pain or cardiac arrhythmia 3. Normal blood pressure and heart rate response 4. Sestamibi/sestamibi perfusion scan pending; see separate report. Electronically Signed On 02-24-2022 11:25:17 CDT by Sonny Eldridge M.D. [email or web address].[employer]/store/[id number]
--- NOTE | 2022-02-22 08:18 | NMCV_ITS ---
NM patti perf SPECT r/s* [id number] Fransico Osborn Age: 56 Gender: M : 1965 Exam Date: 02/22/2022 08:59 Ordering Phys: Bob Otto DO Technologist: FAITH Foote Exam Location: [facility] Indications: CHEST PAIN STRESS TEST Please see separate stress test report in [facility] for full findings IMAGE PROTOCOL Rest/Stress 1 Lexiscan Day Radiopharmaceutical Dose (mCi) Administration Site Administered by Rest: Tc-99m 10.9 IV FAITH Bunch Sestamibi Stress:Tc-99m 33.0 IV FAITH Bunch Sestamibi Rest: 22-Feb-2022 60 Discovery 630 Stress: 22-Feb-2022 30 Discovery 630 0.4mg Lexiscan. Images obtained in supine and prone position. SPECT RESULTS Technical Quality: Excellent Raw Data Analysis: Normal Image Corrections: No attenuation or motion correction applied Summed Stress Score: 5 Summed Rest Score: 9 Summed Difference Score: 1 PERFUSION FINDINGS Moderate area of moderately decreases uptake in the mid and apical inferior and apical lateral regions. Some reversibility was noted in the mid inferior region, with the supine imaging. However with the prone imaging, no significant reversible defects were noted. FUNCTIONAL RESULTS (calculated via Gated SPECT) Stress Image LV EF (%): 63 Stress EDV (mL):125 TID: 1.43 Stress ESV (mL):46 FUNCTIONAL FINDINGS: Segmental wall motion analysis revealing no gross wall motion abnormalities IMPRESSIONS 1. Myocardial perfusion imaging revealing small to moderate area of moderately decreased tracer uptake in the inferior wall and septal regions with subtle area of reversibility in the mid inferior region suggesting myocardial scarring in the distribution of the right coronary artery with a subtle area of ischemia , possible tesfaye-infarction. 2. Normal ejection fraction 63%. 3. Left ventricular wall motion analysis revealing no gross wall motion abnormalities. 4. LV volume, upper limit of normal. 5. The elevated transient ischemic dilatation ratio 1.43 may suggest endocardial ischemia. Clinical correlation recommended Dr Sonny Eldridge MD FACC (Electronically Signed) Final Date: 22 February 2022 13:33 S
[2022-02-22] MEDS: regadenoson 0.4 Mg/5 ml Syringe IVP (09:44)
[2022-02-22 09:59] VITALS: BP 141/75; PULSE 88
== END 2022-02-22 07:34 | disposition home or self-care (01) ==
LOC: CDL 07:33
PROVIDERS: PCP Electrodiagnostic Medicine; Visit Provider Family Medicine
DX: R07.9 Chest pain, unspecified (principal)
CPT/HCPCS: 78452; 93017; A9500; J2785

== ENCOUNTER 2022-07-12 15:09 | Observation (INO) | payer OTHER, SELFPAY ==
--- NOTE | 2022-07-12 15:11 | W.ED.AMS ---
HPI - Altered Mental Status General: Chief Complaint: Altered Mental Status Stated Complaint: AMS Time Seen by Provider: 07/12/22 15:11 Limitations: altered mental status History of Present Illness: Mr. Osborn is a 57-year-old gentleman with, per chart review, history of PE, ADRIAN, CAD, CHF, hypertension, hyperlipidemia, obesity who presents to the emergency department for altered mental status. He was reportedly found down near his house by a neighbor. Last known well is unclear circumstances surrounding his mental status are unclear. Upon EMS arrival patient appears confused and limited ability to answer questions or follow commands. This is possibly slowly improving. Patient is unsure of exact circumstances either and history is otherwise limited by patient's mental status. Upon reassessment of patient condition mental status appears to be improving though he still somewhat lacks recollection of events. He reports feeling generally unwell and not well enough to mow the yard earlier this morning however did go out to prove in a bravo faye. He remembers having left inferior chest pain and then does not recall anything else until waking up in the hospital. Review of Systems General: Reports: ROS unobtainable due to mental status PFSH ED PFSH: Medical History Angina pectoris CAD (coronary artery disease) CHF (congestive heart failure) Diverticulosis Fever Hiatal hernia History of colon polyps History of left heart catheterization HTN (hypertension) Myocardial infarction Obesity Penetrating head injury Pulmonary emboli Pulmonary embolism Viral syndrome Surgical History History of heart artery stent S/P neurological surgery Family History Father Heart disease Alzheimer's dementia Social History Smoking and tobacco status: current every day smoker cigarettes Packs smoked per day: 1 Years cigarettes smoked: 45 Quit status (tobacco): has tried quititng Alcohol intake: current Alcohol intake frequency: holidays/special occasions only Lives independently: Yes Household members: significant other Marital status: Life Partner Current occupational status: employed History of recent travel: No Current gender identity: Male Physical Exam Const: COMMON NORMALS: alert GENERAL APPEARANCE: cooperative and well developed HENMT: COMMON NORMALS: normocephalic and atraumatic HEAD & SCALP: normocephalic and atraumatic Eye: COMMON NORMALS: conjunctivae normal CONJUNCTIVA: Yes conjunctivae normal SCLERA: sclerae normal Neck/C-Spine: COMMON NORMALS: supple GENERAL: Yes trachea midline Resp: COMMON NORMALS: normal respiratory effort and clear to auscultation bilaterally EFFORT & INSPECTION: Yes able to speak in complete sentences AUSCULTATION: clear to auscultation bilaterally Cardio: COMMON NORMALS: regular rate and regular rhythm RATE: regular rate RHYTHM: regular rhythm GI: COMMON NORMALS: Soft to palpation PALPATION: Yes Soft to palpation and No Tenderness to palpation present (GI) PERCUSSION: normal to percussion Extremity: GENERAL: Yes normal exam except as noted and No edema Neuro: COMMON NORMALS: moves all extremities SENSORIUM/ORIENTATION: Yes alert, Yes Orientation impaired and Yes somnolent Course ED course: - Patient was seen and evaluated by me at bedside - Patient placed on cardiac monitors, IV access obtained - Initial evaluation notable for exam as above - Labs and xrays personally interpreted by me. EKG shows sinus rhythm, no STEMI. - Labs notable for no acute abnormality to explain symptoms - Imaging notable for no lobar consolidation or pneumothorax. Negative head CT. No acute cervical spine injury. - Upon serial reexamination after treatment the patient was mildly improved with regards to mental status that still does not recall exact cause of syncope - Based on patient history, evaluation, and testing as interpreted the most likely cause of the patient's condition is unclear. Patient is not low risk by syncope rules especially given preceding chest pain. - The results of ED evaluation were discussed with the patient including plan for admission due to requirement for level of care not available if discharged to prevent significant worsening/deterioration. - Admitting service was contacted and [] with [] agreed to admit the patient - Patient was admitted without further deterioration or significant events. Note: Click bubbles or prepopulated castaneda in note writing are used for assistance with data collection and billing and are inherently more limited than narrative and other text portions of this note. Please use narrative for additional clinical history and defer to narrative/free test for any case of contradictory information. If information appears in only free text or click bubble it should be considered present or absent as reported. Please contact note song writer for clarifications of clinical information or contradictory information. MDM is a brief summary, contradictory or erroneous seeming information should be clarified and full note should be reviewed. Vital Signs: Vital signs: Vital Signs Temperature 98.7 F 07/13/22 18:17 Pulse Rate 78 07/13/22 18:17 Respiratory Rate 17 07/13/22 18:17 Blood Pressure 134/81 07/13/22 18:17 Pulse Oximetry 97 07/13/22 18:17 Oxygen Delivery Me thod 07/13/22 15:47 Oxygen Flow Rate 2 07/12/22 15:13 MDM - Altered Mental Status Medical Decision Making 57-year-old gentleman presenting with altered mental status. Patient slowly improved with regards to mental status and apparently had syncope preceded by chest pain. Added for further evaluation as he is not low risk by syncope rules. Medical Records I reviewed the patient's medical records. Lab Data I reviewed the patient's lab results. : 07/13/22 05:09 07/13/22 05:09 Radiology Impressions Chest X-Ray 07/12/22 15:12 Impression: Negative chest. Head CT 07/12/22 15:12 IMPRESSION: 1. No evidence of intracranial hemorrhage or mass effect. 2. Normal fan-white differentiation. 3. No acute intracranial findings. Cervical Spine CT 07/12/22 15:32 IMPRESSION: No evidence of acute fracture or dislocation. Laboratory Results WBC 8.1 10^3/uL (4.0-10.0) 07/12/22 15:30 RBC 5.06 10^6/uL (4.1-5.3) 07/12/22 15:30 Hgb 14.2 g/dL (11.7-16.6) 07/12/22 15:30 Hct 44.1 % (42.0-52.0) 07/12/22 15:30 MCV 87.2 fl (80-94) 07/12/22 15:30 MCH 28.1 pg (28.0-34.0) 07/12/22 15:30 MCHC 32.2 g/dL (30.0-36.0) 07/12/22 15:30 RDW 13.2 % (12.1-15.1) 07/12/22 15:30 Plt Count 196 10^3/cmm (130-400) 07/12/22 15:30 MPV 9.7 fL (7.4-10.4) 07/12/22 15:30 Neut % (Auto) 63.7 % 07/12/22 15:30 Lymph % (Auto) 24.8 % 07/12/22 15:30 [place] % (Auto) 9.0 % 07/12/22 15:30 Eos % (Auto) 1.5 % 07/12/22 15:30 Baso % (Auto) 0.5 % 07/12/22 15:30 Neut # (Auto) 5.17 10^3/uL (1.8-7.7) 07/12/22 15:30 Lymph # (Auto) 2.0 10^3/uL (0.8-4.8) 07/12/22 15:30 [place] # (Auto) 0.7 10^3/uL (0.2-0.9) 07/12/22 15:30 Eos # (Auto) 0.1 10^3/uL (0.0-0.8) 07/12/22 15:30 Baso # (Auto) 0.0 10^3/uL (0.0-0.1) 07/12/22 15:30 Nucleated RBC % (auto) 0 % 07/12/22 15: Nucleated RBCs # 0.0 /100WBC 07/12/22 15:30 D-Dimer 0.43 ug/mIFEU (0-0.59) 07/12/22 17:30 Specimen Type [facility] 07/12/22 15:29 Sample Site Arterial 07/12/22 15:29 ABG pH 7.45 (7.35-7.45) 07/12/22 15:29 ABG pCO2 36.3 mmHg (35-45) 07/12/22 15:29 ABG pO2 116.0 mmHg (80.0-100.0) H 07/12/22 15:29 ABG HCO3 Not Reportable 07/12/22 15:29 ABG Base Excess Not Reportable 07/12/22 15:29 Keegan Test Pos 07/12/22 15:29 Hematocrit Not Reportable 07/12/22 15:29 O2 Delivery Device Nc 07/12/22 15:29 O2 Liters/Min 2.0 % 07/12/22 15:29 Electrical Controls Engineer ID Cak 07/12/22 15:29 Sodium 136 mmol/L (136-145) 07/12/22 15:30 Potassium 4.0 mmol/L (3.5-5.1) 07/12/22 15:30 Chloride 100 mmol/L (98-107) 07/12/22 15:30 Carbon Dioxide 22 mmol/L (22-29) 07/12/22 15:30 Anion Gap 18.0 (5-19) 07/12/22 15:30 BUN 14 mg/dL (6-20) 07/12/22 15:30 Creatinine 0.8 mg/dL (0.7-1.2) 07/12/22 15:30 GFR Calculation 98.9 mL/min (90-130) 07/12/22 15:30 Glucose 95 mg/dL (65-115) 07/12/22 15:30 POC Glucose 98 mg/dL (70-110) 07/12/22 15:27 Calculated Osmolality 282 mOsm/kg (285-295) L 07/12/22 15:30 Calcium 9.3 mg/dL (8.5-10.5) 07/12/22 15:30 Total Bilirubin 0.2 mg/dL (0.15-1.2) 07/12/22 15:30 AST 16 U/L (0-40) 07/12/22 15:30 ALT 29 U/L (0-41) 07/12/22 15:30 Alkaline Phosphatase 73 U/L (40-130) 07/12/22 15:30 Creatine Kinase 55 U/L (39-308) 07/12/22 15:30 Troponin T Baseline 7 ng/L (0-15) 07/12/22 15:30 Troponin T 120 Minute 6.75 ng/L (0-15) 07/12/22 17:30 Delta Troponin T -0.25 ABS# (0-10) L 07/12/22 17:30 NT-Pro-B Natriuret Pep 15 pg/mL (0-125) 07/12/22 15:30 Total Protein 6.8 g/dL (6.6-8.7) 07/12/22 15:30 Albumin 3.9 g/dL (3.5-5.2) 07/12/22 15:30 Globulin 2.9 g/dL (1.3-4.6) 07/12/22 15:30 Procalcitonin 0.02 ng/mL (0-0.5) 07/12/22 17:30 TSH 1.52 uIU/mL (0.27-4.20) 07/12/22 15:30 Prolactin 5.12 ng/mL (4.0-15.2) 07/12/22 17:30 Salicylates < 0.3 mg/dL (3-10) L 07/12/22 15:30 Acetaminophen < 5.0 ug/mL (10-30) L 07/12/22 15:30 Ethyl Alcohol < 10 mg/dL (0-10) 07/12/22 15:30 Discharge Plan Discharge Patient Disposition: Placed in Observation Admit Provider: Saad Lees Clinical Impression: Syncope, Altered mental status, Chest pain Discharge Diet: Cardiac and Low Cholesterol Discharge Activity: Limit activity as instructed Coding Level of Care Code ED Hand Trucker for Effie Ash
--- NOTE | 2022-07-12 15:12 | ECG_ITS ---
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 Measurements Intervals [place] Rate: 75 P: 59 VT: 182 QRS: 21 QRSD: 93 T: 63 QT: 397 QTc: 445 Interpretive Statements SINUS RHYTHM Compared to ECG 01/05/2022 22:54:25 No significant changes Electronically Signed On 07-13-2022 14:29:27 CDT by Jian Floyd M.D. [id number]
--- NOTE | 2022-07-12 15:12 | CT_ITS ---
WS: [id number] CT HEAD TECHNIQUE: Noncontrast CT of the head obtained from the skullbase to the vertex. CLINICAL INFORMATION: ams, founds down COMPARISON: CT November 24, 2019 DLP: 1585.[address] scans at [facility] use at least one of these dose optimization techniques: automated e xposure control; mA and/or kV adjustment per patient size (includes targeted exams where dose is matc hed to clinical indication); or iterative reconstruction. FINDINGS: No evidence of intracranial hemorrhage or mass effect. Ventricular system and basal cisterns are jacobo nt. No extra-axial fluid collections. No evidence of mass or mass effect. Normal fan-white differen tiation. Mild cavernous carotid calcification. Paranasal sinuses and mastoid air cells are well aerated. .Normal visualized soft tissues. CT/CT head wo con* [id number] IMPRESSION: 1. No evidence of intracranial hemorrhage or mass effect. 2. Normal fan-white differentiation. 3. No acute intracranial findings.
--- NOTE | 2022-07-12 15:12 | XR_ITS ---
WS: [id number] Portable AP upright chest, 07/12/2022 Clinical Data: ams Comparison: Portable chest, 01/05/2022 Findings: No nodules, masses or effusions are seen. The heart is normal. The pulmonary vascularity is not increased. No pneumonia or pneumothorax is seen. XR/XR chest 1V portable [id number] Impression: Negative chest.
[2022-07-12 15:13] VITALS: BP 158/70; PULSE 75; RESP 20; TEMP 36.4; O2SAT 97
[2022-07-12 15:31] LABS: Glucose Point of Care 98 mg/dL (70-110)
--- NOTE | 2022-07-12 15:32 | CT_ITS ---
WS: [id number] CT CERVICAL TRAUMA TECHNIQUE: Noncontrast CT of the cervical spine with coronal and sagittal reformatted images. CLINICAL INFORMATION: ?fall, ams COMPARISON: None. DLP: 1585.[address] scans at [facility] use at least one of these dose optimization techniques: automated e xposure control; mA and/or kV adjustment per patient size (includes targeted exams where dose is matc hed to clinical indication); or iterative reconstruction. FINDINGS: Mild cervical curve. Straightening of the normal cervical lordosis. Normal craniocervical junction. N ormal C1-C2 articulation. Dens is normal in appearance. Mild spondylitic changes. Normal occipital co ndyles. No high-grade spinal canal narrowing. Normal C1 ring. No evidence of acute fracture or disloc ation. Normal prevertebral soft tissues. Mastoids air cells are well aerated. CT/CT cervical spin wo con* [id number] IMPRESSION: No evidence of acute fracture or dislocation.
[2022-07-12 15:41] LABS: ABG PCO2 36.3 mmHg (35-45); ABG PH Result 7.45 (7.35-7.45)
[2022-07-12 15:42] LABS: Basophils % 0.5 %; Eosinophils # 0.1 10^3/uL (0.0-0.8); Eosinophils % 1.5 %; Hematocrit 44.1 % (42.0-52.0); Hemoglobin 14.2 g/dL (11.7-16.6); Lymphocytes % 24.8 %; Mean Corpuscular HGB Conc 32.2 g/dL (30.0-36.0); Mean Corpuscular Hemoglobin 28.1 pg (28.0-34.0); Mean Corpuscular Volume 87.2 fl (80-94); Mean Platelet Volume 9.7 fL (7.4-10.4); Monocytes # 0.7 10^3/uL (0.2-0.9); Neutrophils # 5.17 10^3/uL (1.8-7.7); Neutrophils % 63.7 %; Nucleated Red Blood Cells % 0 %; Platelet Count 196 10^3/cmm (130-400); Red Blood Count 5.06 10^6/uL (4.1-5.3); Red Cell Distribution Width 13.2 % (12.1-15.1); White Blood Count 8.1 10^3/uL (4.0-10.0)
[2022-07-12 15:43] LABS: Blood Gas Allen Test POS; Blood Gas Operator Identificat CAK; Oxygen Device NC
[2022-07-12 15:44] LABS: Blood Gas Sample Site ARTERIAL; Blood Gas Sample Type CAK
[2022-07-12 15:58] VITALS: BP 110/47; PULSE 80; RESP 17; TEMP 36.4; O2SAT 97
[2022-07-12 16:18] LABS: Troponin(5th) Baseline 7 ng/L (0-15)
[2022-07-12 16:25] LABS: Alanine Aminotransferase 29 U/L (0-41); Albumin Level 3.9 g/dL (3.5-5.2); Alkaline Phosphatase 73 U/L (40-130); Aspartate Amino Transferase 16 U/L (0-40); Blood Urea Nitrogen 14 mg/dL (6-20); Calcium 9.3 mg/dL (8.5-10.5); Carbon Dioxide 22 mmol/L (22-29); Creatine Phosphokinase 55 U/L (39-308); Globulin 2.9 g/dL (1.3-4.6); Glomerular Filtration Rate 98.9 mL/min (90-130); Glucose 95 mg/dL (65-115); NT Pro B Type Natriuretic Pept 15 pg/mL (0-125); Thyroid Stimulating Hormone 1.52 uIU/mL (0.27-4.20); Total Bilirubin 0.2 mg/dL (0.15-1.2); Total Protein 6.8 g/dL (6.6-8.7)
[2022-07-12 16:49] LABS: Chloride 100 mmol/L (98-107); Osmolality Calculated 282 mOsm/kg (285-295); Sodium 136 mmol/L (136-145)
[2022-07-12 16:54] LABS: Acetaminophen < 5.0 ug/mL (10-30); Alcohol Level < 10 mg/dL (0-10); Salicylate < 0.3 mg/dL (3-10)
--- NOTE | 2022-07-12 17:12 | ECG_ITS ---
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 Measurements Intervals [place] Rate: 64 P: 48 TX: 179 QRS: 32 QRSD: 94 T: 61 QT: 407 QTc: 420 Interpretive Statements SINUS RHYTHM WITH MARKED SINUS ARRHYTHMIA Compared to ECG 07/12/2022 15:29:26 No significant changes Electronically Signed On 07-13-2022 14:41:02 CDT by Jian Floyd M.D. [id number]
[2022-07-12 18:08] LABS: D Dimer 0.43 ug/mIFEU (0-0.59)
[2022-07-12 18:15] LABS: Troponin 5 2HR 6.75 ng/L (0-15)
[2022-07-12 18:16] VITALS: BP 139/67; PULSE 74; RESP 16
--- NOTE | 2022-07-12 19:10 | PC.NURSE ---
REPORT GIVEN TO MARY Barros RN ASSUMED CARE.
[2022-07-12 19:40] LABS: Troponin 5 2HR Delta -0.25 ABS# (0-10)
[2022-07-12 19:59] VITALS: BP 158/79; PULSE 73; RESP 18; TEMP 36.6; O2SAT 95
--- NOTE | 2022-07-12 20:01 | P.HP_ITS ---
Providers/Chief Complaint Admitting Physician: Saad Lees MD Primary Care Provider: Juma Gupta DO Chief Complaint: AMS History of Present Illness Fransico Osborn is a 57 year old male significant past medical history notable for coronary disease 2 stents in RCA, diastolic congestive heart failure, sleep apnea, alcohol abuse, CVA, pulmonary embolism on Eliquis in mid February had unremarkable Lexiscan stress result clinic with an episode of syncope. 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 He had an syncopal event and his neighbor called 911. Patient is stating that when he was in the ER there was some frothing around the mouth. He is endorsing seizure history, stating that whenever he is anxious he tends to get seizure episodes, last episode was few years back at the of his grandfather and then another episode occurred when he was very anxious to speak at an event. He never took any antiepileptic medications. No recent COVID-like symptoms no recent diarrhea, shortness of breath, cold-like symptoms, flu, fever strokelike symptoms. Diagnostic work-up in the ER is unremarkable, D-dimer is unremarkable, CT head and cervical spine unremarkable No signs of congestive heart failure Hemodynamically stable I requested orthostatics vitals, prolactin level noticed nitroglycerin and sildenafil and his home medications: Patient is stating that he has not taken Viagra in a long time and he only takes nitroglycerin for as needed use/chest pain BNP unremarkable Troponin without significant delta 1.5 TSH EKG sinus rhythm without QTC prolongation Patient has not been using his CPAP machine for sleep apnea stating he cannot tolerate the mask he was snoring when I entered the room Review of Systems Const: Denies: body aches Eyes: Denies: change in vision ENMT: Denies: throat pain Card: Reports: chest pain Resp: Denies: dyspnea GI: Reports: bloating; Denies: abdominal pain : Denies: flank pain Musc: Denies: neck pain Skin/Breast: Denies: rash Neuro: Denies: headache(s) Psych: Denies: anxiety Endo: Denies: polyuria Mateusz/Lymph: Denies: easy bruising All/Imm: Denies: urticaria Medications/Allergies Home Medications Medication Instructions Recorded Confirmed Last Taken Type sildenafil 25 mg tablet 25 - 50 mg PO PRN PRN Erectile 10/16/21 07/12/22 Unknown History Dysfunction nitroglycerin 0.4 mg sublingual 0.4 mg sublingual Q5M PRN Chest 02/09/22 07/12/22 Unknown Rx tablet (Nitrostat) Pain #25 tabs furosemide 20 mg tablet (Lasix) 20 mg PO DAILY PRN Edema 07/12/22 07/12/22 Un known History Allergies Allergy/AdvReac Type Severity Reaction Status Date / Time No Known Allergies Allergy Verified 02/09/22 10:42 PFSH Acute PFSH: Medical History Angina pectoris CAD (coronary artery disease) CHF (congestive heart failure) Diverticulosis Fever Hiatal hernia History of colon polyps History of left heart catheterization HTN (hypertension) Myocardial infarction Obesity Penetrating head injury Pulmonary emboli Pulmonary embolism Viral syndrome Surgical History History of heart artery stent S/P neurological surgery Family History Father Heart disease Alzheimer's dementia Social History Smoking and tobacco status: current every day smoker cigarettes Packs smoked per day: 1 Years cigarettes smoked: 45 Quit status (tobacco): has tried quititng Alcohol intake: current Alcohol intake frequency: holidays/special occasions only Lives independently: Yes Household members: significant other Marital status: Life Partner Current occupational status: employed History of recent travel: No Current gender identity: Male Vitals/I&O/Wt Last Vital Signs Temp 97.9 F 07/12/22 19:59 Pulse 73 07/12/22 19:59 Resp 18 07/12/22 19:59 BP 158/79 07/12/22 19:59 Pulse Ox 95 09/08/22 19:59 O2 Del Method 07/12/22 19:59 O2 Flow Rate 2 07/12/22 15:13 Weight last 48 hrs Weight 127.459 kg Physical Exam Narrative: Patient is awake and alert Morbid obese S1, S2 Currently doing well on room air He was snoring when I entered the room Awake and alert Nonfocal neuro exam No sign of features of stroke Trace edema of ankles Abdomen distended however soft Bloated, nontender Very pleasant cooperative Nonfocal neuro exam Appropriate mood and affect Data : 07/12/22 15:30 07/12/22 15:30 Micro: Microbiology 07/12/22 17:32 Blood Culture - Preliminary Blood SPECIMEN COLLECTED 07/12/22 17:30 Blood Culture - Preliminary Blood SPECIMEN COLLECTED A&P Assessment and plan (1) Syncope: Status: Acute (2) Altered mental status: Status: Acute (3) Morbid obesity: Status: Chronic (4) Umbilical hernia: Status: Chronic Plan Syncopal event Patient experienced chest discomfort before his syncope Troponin not significantly elevated EKG without ischemic or infarctive changes No active chest pain Will request echo to see wall motion abnormality I will also request carotid Doppler and prolactin level Patient is endorsing history of seizure related to anxiety in the past No history of aortic stenosis Currently hemodynamically stable Check orthostatic vitals D-dimer unremarkable He has stopped taking his Eliquis He was taking Eliquis for history of pulmonary embolism He carries history of periumbilical hernia however no active abdominal pain at the time of my evaluation He also has history of left inguinal hernia Lobulated filling defect was seen in the ileum 2.1 x 1.6 cm suspicion for intraluminal polyploid lesion capsule endoscopy was recommended Patient is full code Cardiac diet DVT prophylaxis Lovenox He will need aggressive counseling regarding compliance with his CPAP and medications He thinks his medications are the cause of obesity Attestations Medical Necessity Statement*: Anticipating discharge within 48 hours will need work-up for syncope He will need outpatient capsule endoscopy Time Spent in Patient Care: 40 Coding Level of Care Code Acute Machine Technician for Chg Fwd Diagnoses Syncope R55 Altered mental status R41.82 Morbid obesity E66.01 Umbilical hernia K42.9
--- NOTE | 2022-07-12 20:03 | USCV_ITS ---
Fransico Osborn Age: 57 Gender: M : 1965 Exam Date: 07/12/2022 21:04 Ordering Phys: Quirino Puri MD Technologist: MICHAEL Exam Location: [facility] Indication: syncope, morbid obesity, no DM, long-term smoker, continues smoking, HTN, CAD, ADRIAN, history of pulmonary emboli Risk Factors: syncope, morbid obesity, no DM, long-term smoker, continues smoking, HTN, CAD, ADRIAN, history of pulmonary emboli Previous Vascular Surgery: None Right Brachial BP: / Left Brachial BP: / Right Left Velocity (cm/s) Spectral Plaque Velocity (cm/s) Spectral Plaque Syst/Diast Broadening Syst/Diast Broadening 73.50/ 16.20 None None Prox CCA 62.90 / 19.40 None None 53.90/ 11.20 Min Homo Mid CCA 49.70 / 18.60 Min Homo 35.90/ 10.30 Min [place] Distal CCA 55.00 / 20.00 Min [place] 79.40/ 26.50 Min [place] Prox ICA 108.10/ 23.20 Min [place] 83.80/ 22.10 Min Hetro Mid ICA 124.60/ 40.80 Min [place] 94.90/ 38.50 Min [place] Distal ICA 97.90 / 32.60 Min [place] 111.60 Min [place] ECA 133.40 Min [place] 1.29 ICA/CCA 1.98 Antegrade Vertebral Antegrade 35.30/ 9.90 cm/s 28.70/ 8.50 cm/s Tri Subclavian Tri 105.5 135.4 0 0 FINDINGS Comparison:. 11/26/17. No significant elevation of systolic or diastolic velocities. Tortuous arteries with turbulence. Diffuse bilateral scattered calcified plaque and intimal thickening throughout the common carotid arteries and extending through the bifurcation. Antegrade vertebral arteries. CONCLUSIONS Bilateral ICA stenosis less than 50%. Diffuse mild carotid atherosclerosis. Dr. Gina Moeller DO (Electronically Signed) Final Date: 13 July 2022 07:38 S
--- NOTE | 2022-07-12 20:04 | USCV_ITS ---
Fransico Osborn Age: 57 Gender: M : 1965 Exam Date: 07/12/2022 21:34 Ordering Phys: Quirino Puri MD Technologist: MICHAEL [place] [facility] [place]: syncope, morbid obesity, HTN, CAD, ADRIAN, history of cardiac cath 11/01/2018 BP: 158 / 79 HR: 73 Rhythm: Sinus Technical Quality: Adequate with [employer] MEASUREMENTS (Male / Female) Normal Values 2D ECHO LV Diastolic Diameter PLAX 3.5 cm 4.2 - 5.9 / 3.9 - 5.3 cm LV Systolic Diameter PLAX 2.5 cm IVS Diastolic Thickness 1.2 cm 0.6 - 1.0 / 0.6 - 0.9 cm IVS Systolic Thickness 1.9 cm LVPW Diastolic Thickness 2.0 cm 0.6 - 1.0 / 0.6 - 0.9 cm LVPW Systolic Thickness 1.9 cm LVOT Diameter 2.2 cm LV Ejection Fraction 2D Teich 58.0 % LV Ejection Fraction MOD 2C 63.6 % LV Ejection Fraction 2C AL 66.1 % LA Diameter 3.4 cm LA Width 3.9 cm LA Height 4.4 cm RA Width 3.6 cm RA Height 3.3 cm Aorta at Sinotubular Diameter 3.4 cm IVC Diameter 1.6 cm M-MODE Aortic Annulus Diameter 3.3 cm LA Ao Ratio MM 1.2 MV E Point Septal Separation 0.3 cm DOPPLER AV Peak Velocity 106.0 cm/s LVOT Peak Velocity 74.0 cm/s AV Area Cont Eq vti 2.5 cm squared AV Area Cont Eq pk 2.7 cm squared MV Peak Velocity 100.0 cm/s MV Area PHT 3.3 cm squared Mitral E to A Ratio 2.3 MV E' Velocity 53.0 cm/s Mitral E to MV E' Ratio 11.0 Mitral E to LV E' Lateral Ratio 10.3 Mitral E to LV E' Septal Ratio 11.8 TR Peak Velocity 176.0 cm/s TR Peak Gradient 12.4 mmHg TV Peak E Velocity 47.0 cm/s Right Atrial Pressure 5.0 mmHg Pulmonary Artery Systolic Pressu 17.4 mmHg PV Peak Velocity 87.0 cm/s RV Acceleration Time 0.1 s RV Ejection Time 0.4 s RV AcT/ET 0.2 FINDINGS Left Ventricle Left ventricle is normal. LV systolic function is normal with EF of 55 to 60%. No regional wall motion abnormalities are seen. Right Ventricle Normal in size and function Right Atrium Normal in size Left Atrium Normal in size Mitral Valve Structurally normal mitral valve. No significant stenosis. Trace mitral regurgitation Aortic Valve Aortic valve is thickened. No significant stenosis or regurgitation Tricuspid Valve Trace tricuspid regurgitation. Insufficient TR jet to evaluate RVSP. Pulmonic Valve Not well-visualized Pericardium Normal Aorta Normal in size IVC CONCLUSIONS LV systolic function is normal with EF of 55 to 60%. Trace mitral regurgitation Trace of tricuspid regurgitation. Compared to prior echocardiogram from 10/18/2020, no significant changes are seen. Jian Floyd MD (Electronically Signed) Final Date: 13 July 2022 16:36 S
[2022-07-12 20:41] LABS: Procalcitonin 0.02 ng/mL (0-0.5); Prolactin 5.12 ng/mL (4.0-15.2)
[2022-07-12 21:12] VITALS: PULSE 59; RESP 18; O2SAT 96
--- NOTE | 2022-07-12 21:12 | ECG_ITS ---
[facility] Test Date: 2022-07-12 Pat Name: Fransico Osborn Department: Room: 272 Gender: Male Act Tutor: : 1965 Requested By: Roly Delacruz Order Number: [id number] Michelle MD: Jian Floyd M.D. Measurements Intervals [place] Rate: 57 P: 40 IA: 182 QRS: 15 QRSD: 97 T: 58 QT: 403 QTc: 394 Interpretive Statements SINUS BRADYCARDIA Compared to ECG 07/12/2022 18:23:18 Sinus rhythm no longer present Sinus arrhythmia no longer present Electronically Signed On 07-13-2022 14:40:05 CDT by Jian Floyd M.D. [id number]
[2022-07-12 21:25] LABS: Glucose Point of Care 131 mg/dL (70-110)
[2022-07-12 21:42] LABS: Troponin 5 6HR 6.79 ng/L (0-15)
[2022-07-12] MEDS: sodium chloride 0.9% 1,000 ML 75 ML IV (21:51)
[2022-07-12] MEDS: enoxaparin 40 mg/0.4 mL Syringe SUBCUT (21:52)
[2022-07-12 22:16] LABS: Add Urine Microscopic? NO; Charge for UA Resulting for Rev
[2022-07-12 22:26] LABS: Protein Urine Neg (Negative); Specific Gravity, Urine 1.015 (1.005-1.030); Urine Appearance Clear (CLEAR); Urine Color Yellow (Yellow); pH Urine 7 (5-7)
[2022-07-12 22:27] LABS: Bilirubin Urine Neg (Negative); Blood Urine Neg (Negative); Glucose Urine UA 1+ (Normal); Ketones Urine Negative (Negative); Leukocyte Esterase Urine Negative (Negative); Nitrate Urine Negative (Negative); Urobilinogen Urine Norm (Negative)
[2022-07-12 22:31] LABS: Amphetamines Screen Urine Negative (Negative); Barbiturates Screen Urine Negative (Negative); Benzodiazepines Screen Urine Negative (Negative); Cocaine Screen Urine Negative (Negative); Opiate Screen Urine Negative (Negative); PCP Screen Urine Negative (Negative); THC Screen Urine Negative (Negative)
[2022-07-12 22:33] LABS: Troponin 5 6HR Delta -0.21 ng/L (0-12)
[2022-07-13] VITALS (8 sets, daily range): BP systolic 109–146; BP diastolic 67–88; PULSE 59–78; RESP 16–18; TEMP 36.5–37.1; O2SAT 94–97
[2022-07-13 05:29] LABS: Basophils % 0.4 %; Eosinophils # 0.1 10^3/uL (0.0-0.8); Eosinophils % 1.8 %; Hematocrit 43.8 % (42.0-52.0); Hemoglobin 13.9 g/dL (11.7-16.6); Lymphocytes # 2.1 10^3/uL (0.8-4.8); Lymphocytes % 29.4 %; Mean Corpuscular HGB Conc 31.7 g/dL (30.0-36.0); Mean Corpuscular Hemoglobin 28.6 pg (28.0-34.0); Mean Corpuscular Volume 90.1 fl (80-94); Mean Platelet Volume 9.5 fL (7.4-10.4); Monocytes # 0.7 10^3/uL (0.2-0.9); Monocytes % 9.6 %; Neutrophils % 58.4 %; Nucleated Red Blood Cells % 0 %; Platelet Count 186 10^3/cmm (130-400); Red Blood Count 4.86 10^6/uL (4.1-5.3); Red Cell Distribution Width 13.2 % (12.1-15.1); White Blood Count 7.2 10^3/uL (4.0-10.0)
[2022-07-13] MEDS: perflutren protein-a microsphr 0.22 mg/mL SDV 3 mL IV (05:40)
[2022-07-13 06:00] LABS: Anion Gap 16.2 (5-19); Blood Urea Nitrogen 12 mg/dL (6-20); C Reactive Protein 11.9 mg/L (0.0-4.9); Calcium 9.3 mg/dL (8.5-10.5); Carbon Dioxide 22 mmol/L (22-29); Chloride 102 mmol/L (98-107); Glomerular Filtration Rate 98.9 mL/min (90-130); Glucose 97 mg/dL (65-115); Osmolality Calculated 282 mOsm/kg (285-295); Potassium 4.2 mmol/L (3.5-5.1); Sodium 136 mmol/L (136-145)
[2022-07-13 06:01] LABS: Lactate (Lactic Acid level) 0.7 mmol/L (0.5-2.2)
[2022-07-13 06:37] LABS: Glucose Point of Care 106 mg/dL (70-110)
[2022-07-13] MEDS: lactulose oral liq 20 gm/30 mL UDC 10 GM PO (10:17)
[2022-07-13] MEDS: sennosides-docusate Tablet 1 TAB PO (10:18)
[2022-07-13 11:09] LABS: Glucose Point of Care 165 mg/dL (70-110)
[2022-07-13] MEDS: sodium chloride 0.9% 1,000 ML 75 ML IV (11:57)
--- NOTE | 2022-07-13 16:32 | PM.DCS ---
Discharge Providers Date of Admission: 07/12/22 18:13 Date of Discharge: July 13, 2022 Attending Provider at Admission: Saad Lees MD Attending Provider at Discharge: Saad Lees MD Consults: none Primary Care Provider: Juma Gupta DO Diagnoses at Discharge Discharge Diagnosis (1) Syncope: Details from hospital stay: Suspected seizure based on history Patient says that he was seen on camera going out to doors and then found by his neighbor 30 minutes later frothing at the mouth came to the hospital was confused. Status: Acute (2) Altered mental status: Details from hospital stay: Resolved over time after admission to the hospital. Fit with seizure more than stroke, TIA , intoxication or arrhythmia Status: Acute (3) Morbid obesity: Details from hospital stay: Unchanged Status: Chronic (4) Pulmonary emboli: Details from hospital stay: Pulmonary emboli was 2020 and patient states he had preceding COVID-like illness which does put him at risk for emboli. He stopped the apixaban due to thinking it caused obesity but he did finish 9 months of treatment and it can be stopped Dimer this visit was normal Status: Acute Reason for Visit Reason for Visit: [facility] Hospital Course Hospital Course 57-year-old male monitored on telemetry unremarkable no further altered mental status or syncopal issues. We discussed that the most likely diagnosis is seizure he volunteered that he is not very willing to take medications unless absolutely necessary and also that he tends to stop them on his own. I counseled him that we will go without medications as this is a first an unwitnessed seizure based on history. Follow-up with primary care physician. If he has altered mental status and confusion episodes again would recommend treatment for seizure and/or work-up for the same Discharge Data Studies Completed and Pending Completed Studies During Hospitalization Category Date Time Status CT cervical spin wo con* [id number] Stat Cat Scan 07/12/22 15:[address] head wo con* [id number] Stat Cat Scan 07/12/22 15:12 Completed XR chest 1V portable [id number] Stat Exams 07/12/22 15:12 Completed CV carotid duplex BI* [id number] Routine Ultrasound 07/12/22 20:03 Completed Pending at discharge Category Date Time Status Blood Culture Stat Lab 07/12/22 17:32 Results CV. echo wo/w contrast [id number] Routine Ultrasound 07/12/22 20:04 Taken Radiology Impressions Chest X-Ray 07/12/22 15:12 Impression: Negative chest. Head CT 07/12/22 15:12 IMPRESSION: 1. No evidence of intracranial hemorrhage or mass effect. 2. Normal fan-white differentiation. 3. No acute intracranial findings. Cervical Spine CT 07/12/22 15:32 IMPRESSION: No evidence of acute fracture or dislocation. Laboratory Results WBC 7.2 10^3/uL (4.0-10.0) 07/13/22 05:09 RBC 4.86 10^6/uL (4.1-5.3) 07/13/22 05:09 Hgb 13.9 g/dL (11.7-16.6) 07/13/22 05:09 Hct 43.8 % (42.0-52.0) 07/13/22 05:09 MCV 90.1 fl (80-94) 07/13/22 05:09 MCH 28.6 pg (28.0-34.0) 07/13/22 05:09 MCHC 31.7 g/dL (30.0-36.0) 07/13/22 05:09 RDW 13.2 % (12.1-15.1) 07/13/22 05:09 Plt Count 186 10^3/cmm (130-400) 07/13/22 05:09 MPV 9.5 fL (7.4-10.4) 07/13/22 05:09 Neut % (Auto) 58.4 % 07/13/22 05:09 Lymph % (Auto) 29.4 % 07/13/22 05:09 [place] % (Auto) 9.6 % 07/13/22 05:09 Eos % (Auto) 1.8 % 07/13/22 05:09 Baso % (Auto) 0.4 % 07/13/22 05:09 Neut # (Auto) 4.20 10^3/uL (1.8-7.7) 07/13/22 05:09 Lymph # (Auto) 2.1 10^3/uL (0.8-4.8) 07/13/22 05:09 [place] # (Auto) 0.7 10^3/uL (0.2-0.9) 07/13/22 05:09 Eos # (Auto) 0.1 10^3/uL (0.0-0.8) 07/13/22 05:09 Baso # (Auto) 0.0 10^3/uL (0.0-0.1) 07/13/22 05:09 Nucleated RBC % (auto) 0 % 07/13/22 05:09 Nucleated RBCs # 0.0 /100WBC 07/13/22 05:09 D-Dimer 0.43 ug/mIFEU (0-0.59) 07/12/22 17:30 Specimen Type Cak 07/12/22 15:29 Sample Site Arterial 07/12/22 15:29 ABG pH 7.45 (7.35-7.45) 07/12/22 15:29 ABG pCO2 36.3 mmHg (35-45) 07/12/22 15:29 ABG pO2 116.0 mmHg (80.0-100.0) H 07/12/22 15:29 ABG HCO3 Not Reportable 07/12/22 15:29 ABG Base Excess Not Reportable 07/12/22 15:29 Keegan Test Pos 07/12/22 15:29 Hematocrit Not Reportable 07/12/22 15:29 O2 Delivery Device Nc 07/12/22 15:29 O2 Liters/Min 2.0 % 07/12/22 15:29 Staff Antisubmarine Officer ID Cak 07/12/22 15:29 Sodium 136 mmol/L (136-145) 07/13/22 05:09 Potassium 4.2 mmol/L (3.5-5.1) 07/13/22 05:09 Chloride 102 mmol/L (98-107) 07/13/22 05:09 Carbon Dioxide 22 mmol/L (22-29) 07/13/22 05:09 Anion Gap 16.2 (5-19) 07/13/22 05:09 BUN 12 mg/dL (6-20) 07/13/22 05:09 Creatinine 0.8 mg/dL (0.7-1.2) 07/13/22 05:09 GFR Calculation 98.9 mL/min (90-130) 07/13/22 05:09 Glucose 97 mg/dL (65-115) 07/13/22 05:09 POC Glucose 165 mg/dL (70-110) H 07/13/22 10:59 Calculated Osmolality 282 mOsm/kg (285-295) L 07/13/22 05:09 Lactate 0.7 mmol/L (0.5-2.2) 07/13/22 05:09 Calcium 9.3 mg/dL (8.5-10.5) 07/13/22 05:09 Magnesium 2.0 mg/dL (1.7-2.3) 07/13/22 05:09 Total Bilirubin 0.2 mg/dL (0.15-1.2) 07/12/22 15:30 AST 16 U/L (0-40) 07/12/22 15:30 ALT 29 U/L (0-41) 07/12/22 15:30 Alkaline Phosphatase 73 U/L (40-130) 07/12/22 15:30 Creatine Kinase 55 U/L (39-308) 07/12/22 15:30 Troponin T Baseline 7 ng/L (0-15) 07/12/22 15:30 Troponin T 120 Minute 6.75 ng/L (0-15) 07/12/22 17:30 Delta Troponin T -0.25 ABS# (0-10) L 07/12/22 17:30 Troponin T Hi Sens 6Hr 6.79 ng/L (0-15) 07/12/22 21:13 Troponin T Hi Sens 6Hr Delta -0.21 ng/L (0-12) L 07/12/22 21:13 C-Reactive Protein 11.9 mg/L (0.0-4.9) H 07/13/22 05:09 NT-Pro-B Natriuret Pep 15 pg/mL (0-125) 07/12/22 15:30 Total Protein 6.8 g/dL (6.6-8.7) 07/12/22 15:30 Albumin 3.9 g/dL (3.5-5.2) 07/12/22 15:30 Globulin 2.9 g/dL (1.3-4.6) 07/12/22 15:30 Procalcitonin 0.02 ng/mL (0-0.5) 07/12/22 17:30 TSH 1.52 uIU/mL (0.27-4.20) 07/12/22 15:30 Prolactin 5.12 ng/mL (4.0-15.2) 07/12/22 17:30 Urine Color Yellow (Yellow) 07/12/22 22:05 Urine Appearance Clear (CLEAR) 07/12/22 22:05 Urine pH 7 (5-7) 07/12/22 22:05 Ur Specific [place] 1.015 (1.005-1.030) 07/12/22 22:05 Urine Protein Neg (Negative) 07/12/22 22:05 Urine Glucose (UA) 1+ (Normal) H 07/12/22 22:05 Urine Ketones Negative (Negative) 07/12/22 22:05 Urine Blood Neg (Negative) 07/12/22 22:05 Urine Nitrate Negative (Negative) 07/12/22 22:05 Urine Bilirubin Neg (Negative) 07/12/22 22:05 Urine Urobilinogen Norm mg/dL (Negative) 07/12/22 22:05 Ur Leukocyte Esterase Negative (Negative) 07/12/22 22:05 Salicylates < 0.3 mg/dL (3-10) L 07/12/22 15:30 Urine Opiates Screen Negative ng/mL (Negative) 07/12/22 22:05 Acetaminophen < 5.0 ug/mL (10-30) L 07/12/22 15:30 Ur Barbiturates Screen Negative ng/mL (Negative) 07/12/22 22:05 Ur Phencyclidine Scrn Negative ng/mL (Negative) 07/12/22 22:05 Ur Amphetamines Screen Negative ng/mL (Negative) 07/12/22 22:05 U Benzodiazepines Scrn Negative ng/mL (Negative) 07/12/22 22:05 Urine Cocaine Screen Negative ng/mL (Negative) 07/12/22 22:05 U Marijuana (THC) Screen Negative ng/mL (Negative) 07/12/22 22:05 Ethyl Alcohol < 10 mg/dL (0-10) 07/12/22 15:30 Vitals Last Vital Signs Temp 98.7 F 07/13/22 15:47 Pulse 78 07/13/22 15:47 Resp 17 07/13/22 15:47 BP 134/81 07/13/22 15:47 Pulse Ox 97 07/13/22 15:47 O2 Del Method 07/13/22 15:47 O2 Flow Rate 2 07/12/22 15:13 Discharge Plan Discharge Patient Disposition: Home Condition: Stable Prescriptions: Continued nitroglycerin [Nitrostat] 0.4 mg tablet, sublingual 0.4 mg SUBLINGUAL Q5M PRN (Reason: Chest Pain) Qty: 25 3RF sildenafil 25 mg Tablet 25 - 50 mg PO PRN PRN (Reason: Erectile Dysfunction) Lasix 20 mg tablet 20 mg PO DAILY PRN (Reason: Edema) Discharge Orders: Discharge Order (Routine); Ordered 07/13/22 Ordered By: Saad Lees Referrals: Juma Gupta DO [Primary Care Provider] - Discharge Diet: Cardiac and Low Cholesterol Discharge Activity: Limit activity as instructed Patient Instructions: Opioid Safety Activity Restrictions/Additional Instructions: Do not drive for 1 week follow-up with your primary care physician if any more episodes of altered mental status Consider evaluation for his seizures and starting therapy Discharge Attestations Time Spent in Discharge Care*: greater than 30 min Quality Metrics Clinical Quality Measures [ No reported AMI, CVA or VTE this stay] Coding Level of Care Code Established Pt Acute Chg FW DC note Patient Type Established History Detailed Exam Detailed Medical Decision Making Moderate Complexity Diagnoses Syncope R55 Altered mental status R41.82 Morbid obesity E66.01 Pulmonary emboli I26.99
[2022-07-13 17:22] LABS: Glucose Point of Care 175 mg/dL (70-110)
== END 2022-07-13 18:18 | disposition home or self-care (01) ==
LOC: ER 18:19 → MEDSURG 18:53
PROVIDERS: Internal Medicine; Admitting Provider Internal Medicine; Emergency Provider Emergency Medicine; PCP Electrodiagnostic Medicine; Visit Provider Internal Medicine
DX: R55 Syncope and collapse (principal); R41.82 Altered mental status, unspecified; E66.01 Morbid (severe) obesity due to excess calories; Z68.41 Body mass index [BMI] 40.0-44.9, adult; I26.99 Other pulmonary embolism without acute cor pulmonale; I65.23 Occlusion and stenosis of bilateral carotid arteries; Z86.711 Personal history of pulmonary embolism; G47.33 Obstructive sleep apnea (adult) (pediatric); I25.10 Atherosclerotic heart disease of native coronary artery without angina pectoris; I11.0 Hypertensive heart disease with heart failure; I50.9 Heart failure, unspecified; E78.5 Hyperlipidemia, unspecified; F17.210 Nicotine dependence, cigarettes, uncomplicated
CPT/HCPCS: 36415; 36416; 36600; 70450; 71045; 72125; 80048; 80053; 80306; 80307; 81003; 82550; 82803; 82962; 83605; 83735; 83880; 84145; 84146; 84443; 84484; 85025; 85378; 86140; 87040; 93005; 93306; 93880; 97116; 97161; 99285; C8929; G0378; J1650; J7030; Q9956

== ENCOUNTER 2022-10-02 14:30 | Emergency (ER) | payer OTHER, SELFPAY ==
[2022-10-02] VITALS (13 sets, daily range): BP systolic 94–162; BP diastolic 59–83; PULSE 73–83; RESP 17–26; TEMP 36.8; O2SAT 93–96; BMI 42.5
--- NOTE | 2022-10-02 15:04 | ECG_ITS ---
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 Measurements Intervals [place] Rate: 76 P: 50 DE: 170 QRS: 24 QRSD: 93 T: 61 QT: 384 QTc: 433 Interpretive Statements SINUS RHYTHM POSSIBLE ANTERIOR MYOCARDIAL INFARCTION , OF INDETERMINATE AGE [30 ms Q WAVE IN V3/V4, OR R < 0.2 mV IN V4] Compared to ECG 07/12/2022 20:46:15 Myocardial infarct finding now present Sinus bradycardia no longer present Electronically Signed On 10-02-2022 18:07:06 CIRCUITS ENGINEER by Jyotsna Berkowitz M.D. [email or web address] [facility]/store/OM/[id number]
--- NOTE | 2022-10-02 15:14 | XRR_ITS ---
PROCEDURE INFORMATION: Exam: XR Chest Exam date and time: 10/02/2022 4:23 PM Age: 57 years old Clinical indication: Pain; Angina pectoris; Additional info: Chest pain TECHNIQUE: Imaging protocol: Radiologic exam of the chest. Views: 1 view. COMPARISON: CR XR chest 1V portable [id number] 07/12/2022 3:48 PM FINDINGS: Lungs: Unremarkable. No consolidation. Pleural spaces: Unremarkable. No pleural effusion. No pneumothorax. Heart/Mediastinum: Unremarkable. No cardiomegaly. Bones/joints: Unremarkable. XR/XR chest 1V portable [id number] IMPRESSION: No acute findings.
--- NOTE | 2022-10-02 15:29 | W.ED.CHESTPA ---
Documented by User: Iris Portillo MD 10/02/22 17:09 HPI - Chest Pain General: Chief Complaint: Chest Pain Stated Complaint: chest pain Time Seen by Provider: 10/02/22 15:13 History of Present Illness: 57-year-old male with a history of coronary artery disease, tobacco abuse, hypertension, obesity who presents with chest pain. Has been having chest pain off and on for the past 2 to 3 days. He describes it as a tight sensation in his anterior substernal chest area radiating through to his back. The pain comes on and lasts 15 minutes. He has taken a total of 3 nitroglycerin today as well as 5 sublingual nitroglycerin yesterday to relieve his pain. Today he started having pain at rest. He also became very short of breath when he walked the trash can out to the curb in association with the chest pain. He states this is the same pain he had when he had a stents placed 4 years ago. He denies associated nausea or diaphoresis. He rates the pain 8 out of a 10 at its worst. Currently he is pain-free. He is noncompliant, having stopped all of his medications except he does take aspirin daily. He continues to smoke. Associated symptoms: Reports dyspnea; Deny fever(s), nausea or palpitations Review of Systems Const: Reports: change in appetite; Denies: fever(s) Card: Reports: chest pain, swelling of feet/ankles and dyspnea on exertion; Denies: palpitations, irregular heart rhythm, lightheadedness or orthopnea Resp: Reports: dyspnea; Denies: productive cough or non-productive cough GI: Denies: nausea Musc: Denies: neck pain or back pain Neuro: Reports: headache(s); Denies: dizziness Psych: Denies: anxiety, depression, suicidal ideation or homicidal ideation Mateusz/Lymph: Reports: easy bleeding; Denies: easy bruising PFSH ED PFSH: Medical History Angina pectoris CAD (coronary artery disease) CHF (congestive heart failure) Diverticulosis Fever Hiatal hernia History of colon polyps History of left heart catheterization HTN (hypertension) Myocardial infarction Obesity Penetrating head injury Pulmonary emboli Pulmonary embolism Viral syndrome Surgical History History of heart artery stent S/P neurological surgery Family History Father Heart disease Alzheimer's dementia Social History Smoking and tobacco status: current every day smoker cigarettes Packs smoked per day: 1 Years cigarettes smoked: 45 Quit status (tobacco): has tried quititng Alcohol intake: current Alcohol intake frequency: holidays/special occasions only Lives independently: Yes Household members: significant other Marital status: Life Partner Current occupational status: employed History of recent travel: No Current gender identity: Male Physical Exam Const: COMMON NORMALS: no acute distress and patient oriented x3 OTHER: Obese HENMT: COMMON NORMALS: normocephalic, atraumatic, Normal external nose present and moist oral mucous membranes HEAD & SCALP: normocephalic and atraumatic NOSE: Normal external nose present Eye: COMMON NORMALS: Equal, round and reactive pupils present, EOMs intact bilaterally and conjunctivae normal CONJUNCTIVA: Yes conjunctivae normal PUPIL: Yes Equal, round and reactive pupils present Neck/C-Spine: COMMON NORMALS: no lymphadenopathy Resp: COMMON NORMALS: normal respiratory effort, No retractions, No use of accessory muscles and clear to auscultation bilaterally AUSCULTATION: clear to auscultation bilaterally Cardio: COMMON NORMALS: regular rate and regular rhythm RATE: regular rate RHYTHM: regular rhythm GI: COMMON NORMALS: Normal to inspection, nondistended, normoactive bowel sounds present, Soft to palpation and non-tender PALPATION: Yes Soft to palpation Back/Pelvis: THORACIC SPINE/UPPER BACK: Yes normal to inspection Extremity: OTHER: No edema, no tenderness. Neuro: COMMON NORMALS: patient oriented x3 Skin: NARRATIVE SKIN EXAM: No rash Course Reevaluation(s): Reevaluation #1: Patient remains pain-free with Nitropaste. First troponin is 7. EKG shows no acute ischemic changes. We will wait on 2-hour troponin and plan for disposition after that. If second troponin is negative, the patient can be discharged to follow-up with cardiology. Vital Signs: Vital signs: Vital Signs Temperature 98.3 F 10/02/22 14:58 Pulse Rate 75 10/02/22 18:30 Respiratory Rate 22 H 10/02/22 18:30 Blood Pressure 152/83 10/02/22 18:30 Pulse Oximetry 93 10/02/22 18:30 Oxygen Delivery Me thod 10/02/22 14:58 MDM - Chest Pain Medical Decision Making 57-year-old male with a history of coronary artery disease, hypertension, hyperlipidemia, obesity and tobacco abuse presents with chest pain which he has been having off and on for the past 2 to 3 days, typical of his cardiac pain. He has been taking nitro at home with relief. He is pain-free here upon arrival. His EKG shows no acute ischemic changes. We will give the patient 4 baby aspirin and placed Nitropaste on his chest. We will obtain a chest x-ray and serial troponins. Patient has high risk and will likely need admission for cardiac work-up. Lab Data 10/02/22 15:40 10/02/22 15:40 Radiology Impressions Chest X-Ray 10/02/22 15:14 IMPRESSION: No acute findings. Laboratory Results WBC 8.1 10^3/uL (4.0-10.0) 10/02/22 15:40 RBC 5.02 10^6/uL (4.1-5.3) 10/02/22 15:40 Hgb 14.1 g/dL (11.7-16.6) 10/02/22 15:40 Hct 43.4 % (42.0-52.0) 10/02/22 15:40 MCV 86.5 fl (80-94) 10/02/22 15:40 MCH 28.1 pg (28.0-34.0) 10/02/22 15:40 MCHC 32.5 g/dL (30.0-36.0) 10/02/22 15:40 RDW 13.1 % (12.1-15.1) 10/02/22 15:40 Plt Count 207 10^3/cmm (130-400) 10/02/22 15:40 MPV 9.6 fL (7.4-10.4) 10/02/22 15:40 Neut % (Auto) 63.6 % 10/02/22 15:40 Lymph % (Auto) 25.2 % 10/02/22 15:40 [place] % (Auto) 9.2 % 10/02/22 15:40 Eos % (Auto) 1.1 % 10/02/22 15:40 Baso % (Auto) 0.4 % 10/02/22 15:40 Neut # (Auto) 5.14 10^3/uL (1.8-7.7) 10/02/22 15:40 Lymph # (Auto) 2.0 10^3/uL (0.8-4.8) 10/02/22 15:40 [place] # (Auto) 0.7 10^3/uL (0.2-0.9) 10/02/22 15:40 Eos # (Auto) 0.1 10^3/uL (0.0-0.8) 10/02/22 15:40 Baso # (Auto) 0.0 10^3/uL (0.0-0.1) 10/02/22 15:40 Nucleated RBC % (auto) 0 % 10/02/22 15:40 Nucleated RBCs # 0.0 /100WBC 10/02/22 15:40 Sodium 135 mmol/L (136-145) L 10/02/22 15:40 Potassium 3.7 mmol/L (3.5-5.1) 10/02/22 15:40 Chloride 99 mmol/L (98-107) 10/02/22 15:40 Carbon Dioxide 27 mmol/L (22-29) 10/02/22 15:40 Anion Gap 12.7 (5-19) 10/02/22 15:40 BUN 13 mg/dL (6-20) 10/02/22 15:40 Creatinine 0.7 mg/dL (0.7-1.2) 10/02/22 15:40 GFR Calculation 115.4 mL/min (90-130) 10/02/22 15:40 Glucose 122 mg/dL (65-115) H 10/02/22 15:40 Calculated Osmolality 281 mOsm/kg (285-295) L 10/02/22 15:40 Calcium 9.0 mg/dL (8.5-10.5) 10/02/22 15:40 Total Bilirubin 0.2 mg/dL (0.15-1.2) 10/02/22 15:40 AST 13 U/L (0-40) 10/02/22 15:40 ALT 24 U/L (0-41) 10/02/22 15:40 Alkaline Phosphatase 70 U/L (40-130) 10/02/22 15:40 Troponin T Baseline 7 ng/L (0-15) 10/02/22 15:40 Troponin T 120 Minute 7.93 ng/L (0-15) 10/02/22 17:38 Total Protein 7.1 g/dL (6.6-8.7) 10/02/22 15:40 Albumin 4.0 g/dL (3.5-5.2) 10/02/22 15:40 Globulin 3.1 g/dL (1.3-4.6) 10/02/22 15:40 Discharge Plan Discharge Patient Disposition: Home Clinical Impression: Chest pain, Personal history of coronary artery disease Condition: Stable Prescriptions: No Action nitroglycerin [Nitrostat] 0.4 mg tablet, sublingual 0.4 mg SUBLINGUAL Q5M PRN (Reason: Chest Pain) Qty: 25 3RF sildenafil 25 mg Tablet 25 - 50 mg PO PRN PRN (Reason: Erectile Dysfunction) Lasix 20 mg tablet 20 mg PO DAILY PRN (Reason: Edema) Discharge Orders: Discharge ED (Routine); Ordered 10/02/22 Ordered By: Leon Ibrahim Referrals: Juma Gupta DO [Primary Care Provider] - 1-3 days Discharge Diet: Advance as tolerated Discharge Activity: Resume usual activity Patient Instructions: Chest Pain (ED) Coding Level of Care Code ED Senior Web Developer for Chg Fwd Exam Comprehensive Documented by User: Leon Ibrahim MD 10/02/22 18:41 HPI - Chest Pain General: Chief Complaint: Chest Pain Stated Complaint: chest pain Time Seen by Provider: 10/02/22 15:13 PFSH ED PFSH: Medical History Angina pectoris CAD (coronary artery disease) CHF (congestive heart failure) Diverticulosis Fever Hiatal hernia History of colon polyps History of left heart catheterization HTN (hypertension) Myocardial infarction Obesity Penetrating head injury Pulmonary emboli Pulmonary embolism Viral syndrome Surgical History History of heart artery stent S/P neurological surgery Family History Father Heart disease Alzheimer's dementia Social History Smoking and tobacco status: current every day smoker cigarettes Packs smoked per day: 1 Years cigarettes smoked: 45 Quit status (tobacco): has tried quititng Alcohol intake: current Alcohol intake frequency: holidays/special occasions only Lives independently: Yes Household members: significant other Marital status: Life Partner Current occupational status: employed History of recent travel: No Current gender identity: Male Course Vital Signs: Vital signs: Vital Signs Temperature 98.3 F 10/02/22 14:58 Pulse Rate 75 10/02/22 18:30 Respiratory Rate 22 H 10/02/22 18:30 Blood Pressure 152/83 10/02/22 18:30 Pulse Oximetry 93 10/02/22 18:30 Oxygen Delivery Me thod 10/02/22 14:58 MDM - Chest Pain Medical Decision Making 57-year-old male with a history of coronary artery disease, hypertension, hyperlipidemia, obesity and tobacco abuse presents with chest pain which he has been having off and on for the past 2 to 3 days, typical of his cardiac pain. He has been taking nitro at home with relief. He is pain-free here upon arrival. His EKG shows no acute ischemic changes. We will give the patient 4 baby aspirin and placed Nitropaste on his chest. We will obtain a chest x-ray and serial troponins. Patient has high risk and will likely need admission for cardiac work-up. pt presents here with chest pain. his troponins are normal and he feels improved and is requesting discharge. he is stable for discharg and is to follow up with his pcp and return if worsening Lab Data 10/02/22 15:40 10/02/22 15:40 Radiology Impressions Chest X-Ray 10/02/22 15:14
[2022-10-02] MEDS: aspirin 81 mg Chew Tablet 324 MG PO (15:43)
[2022-10-02] MEDS: nitroglycerin 1 gm/inch oint Pkt 0.5 INCH TOPICAL (15:47)
[2022-10-02 16:03] LABS: Basophils % 0.4 %; Eosinophils # 0.1 10^3/uL (0.0-0.8); Eosinophils % 1.1 %; Hematocrit 43.4 % (42.0-52.0); Hemoglobin 14.1 g/dL (11.7-16.6); Lymphocytes % 25.2 %; Mean Corpuscular HGB Conc 32.5 g/dL (30.0-36.0); Mean Corpuscular Hemoglobin 28.1 pg (28.0-34.0); Mean Corpuscular Volume 86.5 fl (80-94); Mean Platelet Volume 9.6 fL (7.4-10.4); Monocytes # 0.7 10^3/uL (0.2-0.9); Monocytes % 9.2 %; Neutrophils # 5.14 10^3/uL (1.8-7.7); Neutrophils % 63.6 %; Nucleated Red Blood Cells % 0 %; Platelet Count 207 10^3/cmm (130-400); Red Blood Count 5.02 10^6/uL (4.1-5.3); Red Cell Distribution Width 13.1 % (12.1-15.1); White Blood Count 8.1 10^3/uL (4.0-10.0)
[2022-10-02 16:22] LABS: Alanine Aminotransferase 24 U/L (0-41); Alkaline Phosphatase 70 U/L (40-130); Anion Gap 12.7 (5-19); Aspartate Amino Transferase 13 U/L (0-40); Blood Urea Nitrogen 13 mg/dL (6-20); Carbon Dioxide 27 mmol/L (22-29); Chloride 99 mmol/L (98-107); Creatinine Clr Calc Pharmacy 147.6039; Globulin 3.1 g/dL (1.3-4.6); Glomerular Filtration Rate 115.4 mL/min (90-130); Glucose 122 mg/dL (65-115); Osmolality Calculated 281 mOsm/kg (285-295); Potassium 3.7 mmol/L (3.5-5.1); Sodium 135 mmol/L (136-145); Total Bilirubin 0.2 mg/dL (0.15-1.2); Total Protein 7.1 g/dL (6.6-8.7)
[2022-10-02 16:25] LABS: Troponin(5th) Baseline 7 ng/L (0-15)
--- NOTE | 2022-10-02 17:14 | ECG_ITS ---
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 Measurements Intervals [place] Rate: 73 P: 54 CT: 168 QRS: 38 QRSD: 89 T: 66 QT: 389 QTc: 430 Interpretive Statements SINUS RHYTHM WITH SINUS ARRHYTHMIA Compared to ECG 10/02/2022 15:07:41 Myocardial infarct finding no longer present Electronically Signed On 10-03-2022 9:26:56 LICENSED PSYCHOLOGIST by Sonny Eldridge M.D. [email or web address] healthBioVexmetrohealth parma medical centerQuerium Corporation/store/[id number]
[2022-10-02 18:26] LABS: Troponin 5 2HR 7.93 ng/L (0-15)
[2022-10-02 18:45] LABS: Troponin 5 2HR Delta 0.93 ABS# (0-10)
== END 2022-10-02 18:46 | disposition home or self-care (01) ==
PROVIDERS: Emergency Medicine; Emergency Provider Emergency Medicine; PCP Electrodiagnostic Medicine
DX: R07.9 Chest pain, unspecified (principal); I25.10 Atherosclerotic heart disease of native coronary artery without angina pectoris; F17.210 Nicotine dependence, cigarettes, uncomplicated; I11.0 Hypertensive heart disease with heart failure; I50.9 Heart failure, unspecified; I25.2 Old myocardial infarction; Z86.711 Personal history of pulmonary embolism
CPT/HCPCS: 36415; 71045; 80053; 84484; 85025; 93005; 99285

== ENCOUNTER 2022-10-30 11:05 | Outpatient (CLI) | payer OTHER, SELFPAY | END 2022-10-30 11:06 | disposition home or self-care (01) | LOC: RT 11:08 | PROVIDERS: PCP Electrodiagnostic Medicine; Visit Provider Internal Medicine Gastroenterology | DX: R06.02 Shortness of breath (principal) | CPT/HCPCS: 94060; J7613 ==

== ENCOUNTER 2023-10-29 17:40 | Emergency (ER) | payer MEDICAID, SELFPAY ==
--- NOTE | 2023-10-29 17:42 | ECG_ITS ---
[facility] Test Date: 2023-10-29 Pat Name: Fransico Osborn Department: Room: Gender: Male Forestry Aid: : 1965 Requested By: Leon Ibrahim Order Number: [id number] Michelle MD: Sonny Eldridge M.D. Measurements Intervals [place] Rate: 77 P: 43 WV: 170 QRS: 27 QRSD: 92 T: 67 QT: 364 QTc: 412 Interpretive Statements SINUS RHYTHM Compared to ECG 10/02/2022 18:24:34 Sinus arrhythmia no longer present Electronically Signed On 10-30-2023 0:31:43 CARPENTER RAILCAR by Sonny Eldridge M.D. [email or web address] medical [email or web address] Partnersmartins ferry hospitalLiveClips/store/NU/[id number] f
--- NOTE | 2023-10-29 17:42 | XRR_ITS ---
PROCEDURE INFORMATION: Exam: XR Chest Exam date and time: 10/29/2023 6:49 PM Age: 58 years old Clinical indication: Chest wall pain; Additional info: Cp TECHNIQUE: Imaging protocol: Radiologic exam of the chest. Views: 1 view. COMPARISON: CR XR chest 1V portable [id number] 10/02/2022 4:23 PM FINDINGS: Lungs: Unremarkable. No consolidation. Pleural spaces: Unremarkable. No pleural effusion. No pneumothorax. Heart/Mediastinum: Unremarkable. No cardiomegaly. Bones/joints: Unremarkable. XR/XR chest 1V portable [id number] IMPRESSION: No acute findings.
[2023-10-29 17:43] VITALS: BMI 41.0
[2023-10-29 17:45] VITALS: BP 151/79; PULSE 77; RESP 15; TEMP 37.1; O2SAT 96
[2023-10-29 18:15] LABS: Basophils % 0.5 %; Eosinophils # 0.2 10^3/uL (0.0-0.8); Eosinophils % 2.5 %; Hematocrit 47.5 % (37-53); Lymphocytes # 2.3 10^3/uL (0.8-4.8); Lymphocytes % 29.1 %; Mean Corpuscular HGB Conc 32.6 g/dL (30-55); Mean Corpuscular Hemoglobin 27.7 pg (27-33); Mean Platelet Volume 9.8 fL (7.4-10.4); Monocytes # 0.7 10^3/uL (0.2-0.9); Monocytes % 9.1 %; Neutrophils # 4.61 10^3/uL (1.8-7.7); Neutrophils % 58.5 %; Nucleated Red Blood Cells % 0 %; Platelet Count 217 10^3/cmm (157-399); Red Blood Count 5.59 10^6/uL (3.85-5.65); Red Cell Distribution Width 13.2 % (12.1-15.1); White Blood Count 7.88 10^3/uL (3.29-11.43)
--- NOTE | 2023-10-29 18:23 | ED_ITS ---
HPI - Chest Pain 2 General: Chief Complaint: Chest Pain Stated Complaint: chest pain, left arm numbness Time Seen by Provider: 10/29/23 18:00 Source: patient Mode of arrival: ambulatory Limitations: no limitations History of Present Illness: 58-year-old male states he has been havi ng intermittent chest pains over the last 2 days he has extensive cardiac history with multiple stents in the past. States the pain is episodic denies any worsening proving factors denies any nausea or shortness of breath he states he is currently pain-free. Associated symptoms: Deny abdominal pain, dyspnea, fever(s), nausea or vomiting Review of Systems 2 Const: Denies: fever(s), chills, body aches or change in appetite ENMT: Denies: throat pain or dental pain Card: Reports: chest pain Resp: Denies: dyspnea GI: Denies: abdominal pain, nausea, vomiting or diarrhea : Denies: dysuria Musc: Denies: neck pain or back pain Skin/Breast: Denies: rash Neuro: Denies: headache(s) PFSH ED 2 PFSH: Medical History Angina pectoris CAD (coronary artery disease) CHF (congestive heart failure) Diverticulosis Fever Hiatal hernia History of colon polyps History of left heart catheterization HTN (hypertension) Myocardial infarction Obesity Penetrating head injury Pulmonary emboli Pulmonary embolism Viral syndrome Surgical History History of heart artery stent S/P neurological surgery Family History Father Heart disease Alzheimer's dementia Social History Smoking and tobacco/nicotine status: current every day tobacco/nicotine user cigarettes Packs smoked per day: 1 Years cigarettes smoked: 45 Quit status (tobacco/nicotine): has tried quititng Alcohol intake: current Alcohol intake frequency: holidays/special occasions only Substance/Drug Use: never Lives independently: Yes Household members: significant other Marital status: Life Partner Current occupational status: employed Do you think of yourself as: Straight/Heterosexual Current gender identity: Male Physical Exam 2 Const: COMMON NORMALS: no acute distress, patient oriented x3 and healthy appearing HENMT: COMMON NORMALS: normocephalic and atraumatic HEAD & SCALP: n ormocephalic and atraumatic Eye: COMMON NORMALS: Equal, round and reactive pupils present and EOMs intact bilaterally PUPIL: Yes Equal, round and reactive pupils present Neck/C-Spine: COMMON NORMALS: full ROM and supple Chest: COMMONS NORMALS: normal inspection of the chest and normal palpation of entire chest wall Resp: COMMON NORMALS: normal respiratory effort, No retractions, No use of accessory muscles and clear to auscultation bilaterally AUSCULTATION: clear to auscultation bilaterally Cardio: COMMON NORMALS: regular rate, regular rhythm and No murmurs present (Cardio) RATE: regular rate RHYTHM: regular rhythm GI: COMMON NORMALS: Normal to inspection, nondistended, normoactive bowel sounds present, Soft to palpation, non-tender and no masses PALPATION: Yes Soft to palpation Extremity: COMMON NORMALS: normal to inspection and full ROM Neuro: COMMON NORMALS: patient oriented x3, moves all extremities and no focal motor deficits Psych: COMMON NORMALS: mental status grossly normal, Normal thought process present and cooperative THOUGHT PROCESS: Normal thought process present Skin: COMMON NORMALS: no rashes or lesions noted and no wounds GENERAL SKIN EXAM: no rashes or lesions noted Course 2 Vital Signs: Vital signs: Vital Signs Temperature 98.8 F 10/29/23 17:45 Pulse Rate 67 10/29/23 18:47 Respiratory Rate 20 H 10/29/23 18:47 Blood Pressure 138/62 10/29/23 18:47 Pulse Oximetry 96 10/29/23 18:47 Oxygen Delivery Me thod Room Air 10/29/23 17:45 MDM - Chest Pain Medical Decision Making Patient presents here with chest pain been chest pain-free here initial repeat troponins are normal so his EKG he is stable for discharge no signs of ACS no signs of dissection or pulmonary embolism he is to follow-up with his treater helper and return if worsening. Medical Records I reviewed the patient's medical records. Lab Data I reviewed the patient's lab results. 10/29/23 18:06 10/29/23 18:06 Radiology Impressions Chest X-Ray 10/29/23 17:42 IMPRESSION: No acute findings. Laboratory Results WBC 7.88 10^3/uL (3.29-11.43) 10/29/23 18:06 RBC 5.59 10^6/uL (3.85-5.65) 10/29/23 18:06 Hgb 15.50 g/dL (11.27-16.99) 10/29/23 18:06 Hct 47.5 % (37-53) 10/29/23 18:06 MCV 85.0 fl (82-101) 10/29/23 18:06 MCH 27.7 pg (27-33) 10/29/23 18:06 MCHC 32.6 g/dL (30-55) 10/29/23 18:06 RDW 13.2 % (12.1-15.1) 10/29/23 18:06 Plt Count 217 10^3/cmm (157-399) 10/29/23 18:06 MPV 9.8 fL (7.4-10.4) 10/29/23 18:06 Neut % (Auto) 58.5 % 10/29/23 18:06 Lymph % (Auto) 29.1 % 10/29/23 18:06 [place] % (Auto) 9.1 % 10/29/23 18:06 Eos % (Auto) 2.5 % 10/29/23 18:06 Baso % (Auto) 0.5 % 10/29/23 18:06 Neut # (Auto) 4.61 10^3/uL (1.8-7.7) 10/29/23 18:06 Lymph # (Auto) 2.3 10^3/uL (0.8-4.8) 10/29/23 18:06 [place] # (Auto) 0.7 10^3/uL (0.2-0.9) 10/29/23 18:06 Eos # (Auto) 0.2 10^3/uL (0.0-0.8) 10/29/23 18:06 Baso # (Auto) 0.0 10^3/uL (0.0-0.1) 10/29/23 18:06 Nucleated RBC % (auto) 0 % 10/29/23 18:06 Nucleated RBCs # 0.0 /100WBC 10/29/23 18:06 PT 12.30 SECONDS (12.1-14.9) 10/29/23 18:06 INR 0.89 (0.8-1.2) 10/29/23 18:06 Sodium 140 mmol/L (136-145) 10/29/23 18:06 Potassium 4.2 mmol/L (3.5-5.1) 10/29/23 18:06 Chloride 101 mmol/L (98-107) 10/29/23 18:06 Carbon Dioxide 27 mmol/L (22-29) 10/29/23 18:06 Anion Gap 16.2 (5-19) 10/29/23 18:06 BUN 12 mg/dL (8-23) 10/29/23 18:06 Creatinine 0.7 mg/dL (0.7-1.2) 10/29/23 18:06 GFR Calculation 115.0 mL/min (90-130) 10/29/23 18:06 Glucose 111 mg/dL (65-115) 10/29/23 18:06 Calculated Osmolality 290 mOsm/kg (285-295) 10/29/23 18:06 Calcium 9.6 mg/dL (8.5-10.5) 10/29/23 18:06 Total Bilirubin 0.2 mg/dL (0.15-1.2) 10/29/23 18:06 AST 14 U/L (0-40) 10/29/23 18:06 ALT 20 U/L (0-41) 10/29/23 18:06 Alkaline Phosphatase 70 U/L (40-130) 10/29/23 18:06 Troponin T Baseline < 6 ng/L (0-15) 10/29/23 18:06 Troponin T 120 Minute 6.89 ng/L (0-15) 10/29/23 19:50 Delta Troponin T 0.07552 ABS# (0-10) 10/29/23 19:50 Total Protein 7.4 g/dL (6.6-8.7) 10/29/23 18:06 Albumin 4.7 g/dL (3.5-5.2) 10/29/23 18:06 Globulin 2.7 g/dL (1.3-4.6) 10/29/23 18:06 All radiology interpretation(s) finalized by discharge EKG Data EKG 1: I personally reviewed and interpreted this EKG as follows: EKG interpretation date: 10/29/23 EKG interpretation time: 17:45 Interpretation: nsr hr [address] or t wave abnormalities qrs 92 qtc 395 EKG 2: I personally reviewed and interpreted this EKG as follows: EKG interpretation date: 10/29/23 EKG interpretation time: 19:45 Interpretation: sinus bradycardia hr [address] or t wave abnormalities qrs 89 qtc 407 Discharge Plan Discharge Patient Disposition: Home Clinical Impression: Chest pain Qualifiers: Chest pain type: unspecified Qualified Code(s): R07.9 - Chest pain, unspecified Condition: Stable Prescriptions: Continued nitroglycerin [Nitrostat] 0.4 mg tablet, sublingual 0.4 mg SUBLINGUAL Q5M PRN (Reason: Chest Pain) Qty: 25 3RF No Action sildenafil 25 mg Tablet 25 - 50 mg PO PRN PRN (Reason: Erectile Dysfunction) Lasix 20 mg tablet 20 mg PO DAILY PRN (Reason: Edema) Discharge Orders: Discharge ED (Routine); Ordered 10/29/23 Ordered By: Leon Ibrahim Referrals: Jian Floyd M.D [Physician] - 1-3 days Juma Gupta DO [Primary Care Provider] - Discharge Diet: Advance as tolerated Discharge Activity: Resume usual activity Patient Instructions: Chest Pain (ED) Coding Level of Care Code ED Community Support Worker for Effie Ash
[2023-10-29 18:30] LABS: INR 0.89 (0.8-1.2)
[2023-10-29] MEDS: aspirin 81 mg Chew Tablet 324 MG PO (18:30)
[2023-10-29 18:36] LABS: Troponin(5th) Baseline < 6 ng/L (0-15)
[2023-10-29 18:47] VITALS: BP 138/62; PULSE 67; RESP 20; O2SAT 96
[2023-10-29 18:49] LABS: Alanine Aminotransferase 20 U/L (0-41); Albumin Level 4.7 g/dL (3.5-5.2); Alkaline Phosphatase 70 U/L (40-130); Anion Gap 16.2 (5-19); Aspartate Amino Transferase 14 U/L (0-40); Blood Urea Nitrogen 12 mg/dL (8-23); Calcium 9.6 mg/dL (8.5-10.5); Carbon Dioxide 27 mmol/L (22-29); Chloride 101 mmol/L (98-107); Globulin 2.7 g/dL (1.3-4.6); Glucose 111 mg/dL (65-115); Osmolality Calculated 290 mOsm/kg (285-295); Potassium 4.2 mmol/L (3.5-5.1); Sodium 140 mmol/L (136-145); Total Bilirubin 0.2 mg/dL (0.15-1.2); Total Protein 7.4 g/dL (6.6-8.7)
--- NOTE | 2023-10-29 19:42 | ECG_ITS ---
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 Measurements Intervals [place] Rate: 58 P: 34 AR: 154 QRS: 30 QRSD: 89 T: 53 QT: 411 QTc: 404 Interpretive Statements SINUS BRADYCARDIA Compared to ECG 10/02/2022 18:24:34 Sinus rhythm no longer present Sinus arrhythmia no longer present Electronically Signed On 10-30-2023 0:34:29 CHIEF ENVIRONMENTAL COMMITMENT OFFICER by Sonny Eldridge M.D. [id number]
[2023-10-29 20:35] LABS: Troponin 5 2HR 6.89 ng/L (0-15); Troponin 5 2HR Delta 0.89001 ABS# (0-10)
--- NOTE | 2023-10-30 07:17 | DCPLANNER ---
Message sent to cardiology for a follow up appointment with Mariel-Chest pain
== END 2023-10-29 21:26 | disposition home or self-care (01) ==
PROVIDERS: Emergency Provider Emergency Medicine; PCP Electrodiagnostic Medicine
DX: R07.9 Chest pain, unspecified (principal); F17.210 Nicotine dependence, cigarettes, uncomplicated; I25.10 Atherosclerotic heart disease of native coronary artery without angina pectoris; I11.0 Hypertensive heart disease with heart failure; I50.9 Heart failure, unspecified; I25.2 Old myocardial infarction
CPT/HCPCS: 36415; 71045; 80053; 84484; 85025; 85610; 93005; 99285

== ENCOUNTER 2023-11-11 15:47 | Outpatient (CLI) | payer MEDICAID, SELFPAY ==
--- NOTE | 2023-11-11 | USCV_ITS ---
Fransico Osborn Age: 58 Gender: M : 1965 Exam Date: 11/11/2023 16:00 Ordering Phys: Jyoti Herrera Technologist: NITIN [place] [facility] [place] LE pain and swelling Hx of PE HISTORY: Lower extremity pain. PROCEDURES: Venous duplex imaging was performed in only the right lower extremity. The following venous structures were evaluated: common femoral vein, profunda vein, proximal portion of the greater saphenous vein, superficial femoral vein, and the popliteal vein. In addition, the posterior tibial and peroneal trunk were evaluated. Serial compression, augmentation maneuvers, and spectral Doppler flow evaluation were performed. FINDINGS: No evidence of DVT seen in any vessel visualized at this time. CONCLUSIONS No evidence of right lower extremity DVT. Saad Harris MD (Electronically Signed) Final Date: 11 November 2023 16:18 S
== END 2023-11-11 15:48 | disposition home or self-care (01) ==
LOC: RAD 15:47
PROVIDERS: PCP Electrodiagnostic Medicine; Visit Provider Nurse Practitioner Family
DX: M79.89 Other specified soft tissue disorders (principal)
CPT/HCPCS: 93971

== ENCOUNTER 2024-01-03 08:01 | Outpatient (CLI) | payer MEDICAID, SELFPAY ==
--- NOTE | 2024-01-03 | ECG_ITS ---
[facility] Test Date: 2024-01-03 Pat Name: Fransico Osborn Department: Room: Gender: Male Gore Inserter: : 1965 Requested By: Jian Floyd Order Number: [id number] Michelle MD: Jian Floyd M.D. Interpretive Statements NAME OF STUDY: LEXISCAN SESTAMIBI STRESS TEST INDICATION: [Chest Pain] Procedure: At the baseline, the blood pressure was 134/79 mmHg with a heart rate of 61 bpm. The electrocardiogram showed normal sinus rhythm, normal axis with normal ST and T's. The Lexiscan was infused over a period of 20 seconds. A total of 0.4 mg of Lexiscan was infused. The stress phase was continued for a total of 5 minutes. Heart rate was at the end of stress phase was 74 bpm and a blood pressure of 122/68 mmHg. The EKG at the peak infusion revealed normal sinus rhythm with no significant ST-T wave changes. Sestamibi was injected 20 seconds after the Lexiscan infusion. Blood pressure at the end of recovery phase was 143/78 mmHg with a heart rate of 72 bpm. Conclusion: 1. Normal EKG response to Lexiscan infusion 2. No Lexiscan induced chest pain or cardiac arrhythmia. 3. Normal blood pressure and heart rate response. 4. Sestamibi/sestamibi perfusion scan pending; see separate report. Electronically Signed On 01-16-2024 10:49:14 CDT by Jian Floyd M.D. [id number]
[2024-01-03 08:00] VITALS: BMI 42.5
--- NOTE | 2024-01-03 09:01 | NMCV_ITS ---
NM patti perf SPECT r/s* [id number] Fransico Osborn Age: 58 Gender: M : 1965 Exam Date: 01/03/2024 09:00 Ordering Phys: Jian Floyd M.D ([email or web address]) Technologist: FAITH Foote Exam Location: [facility] Indications: CHEST PAIN STRESS TEST Please see separate stress test report in [facility] for full findings IMAGE PROTOCOL Rest/Stress 1 Lexiscan Day Radiopharmaceutical Dose (mCi) Administration Site Administered by Rest: Tc-99m 11.0 IV FAITH Bunch Sestamibi Stress:Tc-99m 32.8 IV FAITH Bunch Sestamibi Rest: 03-Jan-2024 60 Discovery 630 Stress: 03-Jan-2024 30 Discovery 630 0.4mg Lexiscan. Images obtained in supine and prone position. SPECT RESULTS Technical Quality: Excellent Raw Data Analysis: Normal Image Corrections: No attenuation or motion correction applied Summed Stress Score: 11 Summed Rest Score: 4 Summed Difference Score: 7 PERFUSION FINDINGS There is a medium size partially reversible, moderate intensity perfusion defect noted in apical and apical lateral rock[place]. This is consistent with medium sized area of prior infarct with significant tesfaye-infarct ischemia in LAD and left circumflex artery territories. FUNCTIONAL RESULTS (calculated via Gated SPECT) Stress Image LV EF (%): 57 Stress EDV (mL):125 TID: 1.11 Stress ESV (mL):54 FUNCTIONAL FINDINGS: There is normal left ventricular systolic function. IMPRESSIONS 1. Abnormal myocardial perfusion imaging with medium sized area of prior infarct with significant tesfaye-infarct ischemia in the LAD and Left circumflex artery territories 2. LV systolic function is normal Jian Floyd MD (Electronically Signed) Final Date: 05 January 2024 11:36 S
[2024-01-03] MEDS: regadenoson 0.4 Mg/5 ml Syringe 0.400000000000000022 MG IVP (09:44)
[2024-01-03] MEDS: aminophylline 25 mg/mL SDV 10 mL IVP (09:50)
[2024-01-03 10:25] VITALS: BP 145/84; PULSE 92
== END 2024-01-03 08:02 | disposition home or self-care (01) ==
PROVIDERS: PCP Electrodiagnostic Medicine; Visit Provider Internal Medicine
DX: R07.9 Chest pain, unspecified (principal)
CPT/HCPCS: 36415; 78452; 93017; 96374; 96375; A9500; J0280; J2785

== ENCOUNTER 2024-01-16 05:44 | Outpatient (CLI) | payer MEDICAID, SELFPAY ==
[2024-01-16] VITALS (13 sets, daily range): BP systolic 134–154; BP diastolic 63–91; PULSE 60–96; RESP 15–22; TEMP 36.6–36.7; O2SAT 93–96; BMI 43.2
--- NOTE | 2024-01-16 06:09 | XACV_ITS ---
Exam Room: 2 Ht: 173 cm Wt: 129 kg BSA: 2.55 m2 Gender: Male : 1965 Any Known Allergies: Other Exam Priority: Routine Procedure(s): Procedure Description: Diagnostic procedure Procedure Description: PCI procedure Procedure Description: Drug Eluting Coronary Stent Procedure Description: PTCA Procedure Description: Miscellaneous Procedure Description: ACT Procedure Description: Coronary Angiography Diagnostic Cath Status: Elective Diagnostic Findings * INDICATION: Chest pain/abnormal stress test. * Left Main has no significant disease. * Circumflex has mild luminal irregularities. * Right Coronary Artery has patent prior stent. No significant stensosis. * Proximal to mid Left Anterior Descending: critical 95% stenosis, TEE: 3 flow. * Coronary angiography shows right dominance. PCI Status: Elective PCI Indication: Other Interventional Findings * Procedure detail: We engaged left main artery with XB 3.5 guide catheter. IV heparin was administered to maintain anticoagulation. 0.014 run-through guidewire was used to cross the stenosis and was put in distal vessel. We predilated the stenosis with 2.75 x 15 mm NC balloon. This was followed by placement of 4.0 x 26 mm resolute [place] drug-eluting stent in proximal to mid LAD. We postdilated the stent with 4.0 x 15 mm NC balloon. At this time final angiogram was performed that showed excellent stent expansion, TEE-3 flow and no residual stenosis. Guidewire and guide catheter were removed. Patient left the Camp Coordinator in a stable condition.. * Mid Left Anterior Descendin% stenosis treated with a MDT NC EUPHORA RX [id number] BALLOON, MDT R CALLI 4.0X26 ALEX, and MDT NC EUPHORA RX [id number] BALLOON. 0% residual stenosis, TEE: 3 flow. Conclusions 1. Critical proximal to mid LAD stenosis s/p PCI with 1 stent. 2. Mid Left Anterior Descending was treated with a Balloon, Drug Eluting Stent, and Balloon. Recommendations * Dual antiplatelet therapy with aspirin and plavix for at least 1 year. * High intensity statin therapy. * Outpatient cardiology follow up in 4 weeks. Interventional RX Recommendation: PCI w/o planned CABG Diagnostic RX Recommendation: PCI w/o planned CABG Anticoagulation: Heparin Pressures Phase:Rest AO : 124 / 78 ( 99 ) @ 8:59:00 AM 133 / 86 ( 108 ) @ 9:01:00 AM 151 / 89 ( 113 ) @ 9:07:00 AM 113 / 67 ( 86 ) @ 9:12:00 AM 127 / 87 ( 105 ) @ 9:22:00 AM Clinical Evaluation EBL: 5mL-10mL Procedural Details Procedure Consent Obtained. Pre-Procedure Time Out. Identified patient by full name and date of as verbalized by the patient/guarantor. Does the consent match the physician's order: Yes. Accurate & Complete Informed Consent: Yes. Inpatient/Outpatient History & Physical on Chart: Yes. If H&P is completed, is and addenduem needed: No. Visualize and Verify Site with Patient/Guarantor: N/A. Relevant Radiology Images available: Yes. The risks, benefits, and alternatives of sedation and/or procedure were discussed by physician. The patient agrees to continue. Procedure started. HA Clinical Fraility Score: 3: Managing Well. Camp Coordinator Indications: Worsening Angina/Abnormal stress test. Chest Pain Symptom Assessment: Typical Angina Symptoms. Cardiovascular Instability: No. Correct patient, site and procedure confirmed by cath team. PERRLA. Strong, equal hand frog or oyster farmworker bilaterally. Lungs clear x 5 lobes. IV Site on Arrival: 20 gauge in the right anticubital. IV Fluids: 0.9% NaCl at KVO. 0 mL infused prior to dental laboratory assistant. Pre Procedural Pulses: bilateral dorsalis pedis was Doppled. Pre Procedural Pulses: bilateral posterior tibial was Doppled. Pre Procedural Pulses: bilateral radial was 3+. Oxygen started at 2liters/min via nasal canula. right groin was prepped with chloroprep then draped in the usual sterile fashion. right radial was prepped with chloroprep then draped in the usual sterile fashion. Physician notified. Baseline sample Acquired. HR: 61 BPM. Patient's family in CPRU. Dr. Floyd will update at the completion of the procedure. Equipment: 6F - Radial. Cardiac Cath Pack. ACIST Manifold Kit Model BT 2000. Heparinized Saline (2 units/mL), 1000 mL bag. Physician arrived. Physician scrubbed in. Immediate Pre-Procedure Time Out. Correct Patient: Yes; Correct Procedure: Yes; Correct Site: Yes; Correct Patient Position: Yes; Correct Supplies: Yes; Dried Flammable Prep: Yes; Blood Products Available: N/A;. Lidocaine 1% infiltrated to the right radial. Arterial access obtained. A 5 moldovan TIG catheter in over the exchange J wire. Multiple views taken of left coronary artery. Catheter redirected to the RCA. Multiple views taken of right coronary artery. Catheter removed over the exchange J wire. add inventory: endoflator, co-packing machine pilot can router, runthrough guidewire. 6 moldovan XB 3 guide catheter was inserted over the exchange J wire. Runthrough guidewire was advanced through the guide catheter to lesion in the mid LAD. Inflation number : 1 A MDT NC EUPHORA RX [id number] BALLOON was prepped and advanced across the Mid LAD , then inflated to 12 GIN for 0:15 seconds. Inflation number: 2 The MDT NC EUPHORA RX 2.04P76ME BALLOON was reinflated across the Mid LAD, to 14 GIN for 0:10 seconds. Balloon out. Results checked. Inflation Number : 3 A MDT R CALLI 4.0X26 ALEX -Lot Number# [id number] was prepped and advanced across the Mid LAD. The stent was deployed at 12 GIN for 0:30 seconds. Exp. . Stent balloon out over wire. Results checked. Inflation number : 4 A MDT NC EUPHORA RX [id number] BALLOON was prepped and advanced across the Mid LAD , then inflated to 16 GIN for 0:24 seconds. Balloon out. Wire out. ACT drawn. Results 366 seconds. Therapeutic limits - pre-heparin administration 90-150 seconds and monitoring heparin during a vascular procedure >250 seconds. Guide catheter out over the exchange J wire. Dr. Floyd scrubbed out. A TR Band was successful obtaining hemostatsis at the Right Radial artery insertion site. Post Procedure: Pulses reassessed and unchanged. PERRLA. Strong, equal hand frog or oyster farmworker bilaterally. No VTE prophylaxis required. Medication's Wasted: Lidocaine 1% = 1 mL. Medication's Wasted: Nitro = 49.6 mg. Medication's Wasted: Heparin = 3000 Units. Medication's Wasted: Other = Versed 1 mg. Medication's Wasted: Other = Fentanyl 75 mcg. Total IV fluids: 40 mL. PCI Indication: CAD (without ischemic symptoms). Post-op diagnosis: PCI of the mid LAD. Complications: none. Estimated blood loss: 5mL-10mL. Responsiveness - Normal response to verbal stimuli; alert and oriented, PERRLA. Airway - Unaffected, no intervention required; spontaneous ventilation. Circulation: W/N/L, pulses unchanged. Nausea/Vomiting: No. Procedure completed. Patient transferred by wheelchair to CPRU. Vital chart was stopped. Access Site Site: Right Radial artery Sheath Size: 6 Fr Hemostasis Method: TR Band Hemostasis Success: Successful Procedure Medications Start: 7:52 AM Stop: 7:52 AM Medication: Fentanyl Amount: 25 mcg Route: I.V. Start: 7:52 AM Stop: 7:52 AM Medication: Versed Amount: 1 mg Route: I.V. Start: 7:58 AM Stop: 7:58 AM Medication: Heparin Amount: 5000 units Route: I.V. Start: 8:03 AM Stop: 8:03 AM Medication: Nitrogylcerin Amount: 200 mcg Route: I.A. Start: 7:56 AM Stop: 7:56 AM Medication: Nitrogylcerin Amount: 200 mcg Route: I.A. Start: 8:07 AM Stop: 8:07 AM Medication: Heparin Amount: 7000 units Route: I.V. Start: 8:32 AM Stop: 8:32 AM Medication: Plavix Amount: 600 mg Route: P.O. I, the attending physician, have reviewed and verified all procedure medications. Yes, all medications given per verbal order History/Risk Factors Hypertension: Yes Dyslipidemia: Yes Peripheral Arterial Disease (PAD): No Myocardial Infarction (GA): Yes Obesity: Yes Renal Disease: No Tobacco Use: Current/Recent(w/in 1 year) Prior Interventions PCI: Yes CABG: No Valve Surgery: No Date of PCI: 10/14/2017 Report Signatures Finalized by Jian Floyd MD on 01/27/2024 12:10 PM
[2024-01-16] MEDS: diphenhydrAMINE 50 mg Capsule PO (06:20)
[2024-01-16] MEDS: aspirin 325 mg Tablet PO (06:20)
[2024-01-16 06:28] LABS: Basophils % 0.5 %; Eosinophils # 0.2 10^3/uL (0.0-0.8); Eosinophils % 2.4 %; Hematocrit 43.7 % (37-53); Lymphocytes # 2.4 10^3/uL (0.8-4.8); Mean Corpuscular HGB Conc 32.3 g/dL (30-55); Mean Corpuscular Hemoglobin 27.5 pg (27-33); Mean Corpuscular Volume 85.2 fl (82-101); Mean Platelet Volume 9.4 fL (7.4-10.4); Monocytes # 0.7 10^3/uL (0.2-0.9); Monocytes % 11.8 %; Neutrophils # 2.95 10^3/uL (1.8-7.7); Nucleated Red Blood Cells % 0 %; Platelet Count 196 10^3/cmm (157-399); Red Blood Count 5.13 10^6/uL (3.85-5.65); Red Cell Distribution Width 13.2 % (12.1-15.1); White Blood Count 6.27 10^3/uL (3.29-11.43)
[2024-01-16 06:48] LABS: Anion Gap 18.2 (5-19); Blood Urea Nitrogen 11 mg/dL (8-23); Calcium 8.4 mg/dL (8.5-10.5); Carbon Dioxide 22 mmol/L (22-29); Chloride 99 mmol/L (98-107); Creatinine Clr Calc Pharmacy 146.9333; Glucose 188 mg/dL (65-115); Osmolality Calculated 284 mOsm/kg (285-295); Potassium 4.2 mmol/L (3.5-5.1); Sodium 135 mmol/L (136-145)
--- NOTE | 2024-01-16 07:38 | W.PM.OPSUD ---
Surgery/Procedure H&P Update DATE OF PROCEDURE: January 16, 2024 DATE H&P PERFORMED: 12/25/23 H&P UPDATE INFORMATION: I have reviewed H&P completed within last 30 days, I have examined patient prior to procedure and No changes to prior documentation PREOP DIAGNOSIS: Chest pain/abnormal stress test PRIMARY INDICATION FOR PROCEDURE: Chest pain/abnormal stress test PLANNED PROCEDURE: Operation Date: 01/16/24 07:00 Proposed Procedures p [facility] 62686,R94.39, I20.0(Left) - Jian Floyd M.D Possible percutaneous coronary intervention PATIENT REASSESSED PRIOR TO SEDATION, WITH NO CHANGE NOTED: Yes PHYSICAL EXAM: alert, oriented x 3, clear to auscultation bilaterally and regular rate & rhythm AIRWAY EVAL/ANESTHESIA PLAN: normal airway, ASA III, Local Anesthesia, Risks, benefits & alternatives of sedation and/or procedure discussed and Patient agrees to continue as planned ADDITIONAL INFORMATION: Moderate sedation
--- NOTE | 2024-01-16 08:40 | SUR.EXTENDED ---
Received the patient back from the laborer marine terminal via wheelchair s/p PCI of the Mid LAD. Patient ambulated to the cot without difficulty. A & 0 x 3. monitor tech placed and vital signs obtained. TR band intact to the right wrist. No bleeding or hematoma noted. Palpable radial pulse. No other assessment changes noted from pre cath assessment. Will transfer to room 106 after recovery. Family at bedside. No concerns voiced at this time.
--- NOTE | 2024-01-16 09:14 | SUR.EXTENDED ---
Patient transferred to CSU 106 via wheelchair.
--- NOTE | 2024-01-16 09:35 | ECG_ITS ---
[facility] Test Date: 2024-01-16 Pat Name: Fransico Osborn Department: Room: 106 Gender: Male Quality Control Assistant: : 1965 Requested By: Jian Floyd Order Number: [id number] Michelle MD: Fransico Bueno M.D. Measurements Intervals [place] Rate: 61 P: 50 SC: 172 QRS: 24 QRSD: 97 T: 41 QT: 413 QTc: 417 Interpretive Statements SINUS RHYTHM Compared to ECG 10/29/2023 19:45:10 Sinus bradycardia no longer present Electronically Signed On 01-16-2024 15:21:09 CDT by Fransico Bueno M.D. [email or web address] behavioral health [email or web address] Communicationschildren's hospital of [facility].[email or web address]/store/NU/[id number]/[id number] f
--- NOTE | 2024-01-16 09:42 | PC.NURSE ---
Patient is complaining of chest pain after coming from laboratory mechanical technician 06/13. EKG is done and up loaded. Dr Fitzpatrick is called and he said to give him Nitro patch 1 inch. Provider will review the EKG and come and see him.
[2024-01-16] MEDS: nitroglycerin 1 gm/inch oint Pkt 1 INCH TOPICAL (09:50)
[2024-01-16] MEDS: nitroglycerin 0.4 mg sublingual Tablet 0.400000000000000022 MG SUBLINGUAL (09:53)
--- NOTE | 2024-01-16 10:00 | ECG_ITS ---
[facility] Test Date: 2024-01-16 Pat Name: Fransico Osborn Department: Room: 106 Gender: Male Splunk Consultant: : 1965 Requested By: Jian Floyd Order Number: [id number] Michelle MD: Fransico Bueno M.D. Measurements Intervals [place] Rate: 67 P: 38 [place]: 172 QRS: 14 QRSD: 97 T: 45 QT: 409 QTc: 432 Interpretive Statements SINUS RHYTHM POSSIBLE ANTERIOR MYOCARDIAL INFARCTION , OF INDETERMINATE AGE [30 ms Q WAVE IN V3/V4, OR R < 0.2 mV IN V4] Compared to ECG 01/16/2024 09:35:40 Myocardial infarct finding now present Electronically Signed On 01-16-2024 15:20:02 CDT by Fransico Bueno M.D. [email or web address] memorial hospital.[employer]/store/OM/[email or web address]/[id number]
[2024-01-16] MEDS: tirofiban 5 MG/100 ML PREMIX 15.5999999999999996 MG IV ×2 (10:32→11:57)
[2024-01-16] MEDS: sodium chloride 0.9% 1,000 ML 100 ML IV (11:53)
--- NOTE | 2024-01-16 11:55 | PC.NURSE ---
A one time bolus of 65 ml's was given out of 1st bag of aggrastat. Order was confirmed with provider and GWENDOLYN Guadalupe from seed analysis laboratory assistant.
--- NOTE | 2024-01-16 13:29 | PC.NURSE ---
Patient arrived from bean sprout laborer with a right radial TR-Band. No hemotoma is noted. Air is removed from the TR-band as follows: 2ml's at 1105, 2ml's at 1130, 2ml's at 1155, 2ml's at 1230, 2ml's at 1250, 2ml's at 1315. TR-band is removed at 1330. A 2 x 2 and tegaderm is applied. Patient tolerated well.
--- NOTE | 2024-01-16 14:32 | PC.NURSE ---
Patients aggrastat is stopped after 4 hours of IV infusion per Dr. Floyd.
--- NOTE | 2024-01-16 19:01 | PC.NURSE ---
Patient up to chair. Denies chest pain or other needs. Patient is ambulatory without difficulty. Patient is s/p [facility] with PCI via right radial artery. Dressing in place is c,d,i without s/s of bleeding or hematoma formation. Provided instruction regarding site care and restrictions. Patient verbalized complete understanding. Will continue to monitor.
[2024-01-16] MEDS: enoxaparin 40 mg/0.4 mL Syringe SUBCUT (20:39)
[2024-01-16] MEDS: temazepam 15 mg Capsule PO (20:39)
[2024-01-17 04:01] VITALS: BP 144/84; PULSE 70; RESP 16; TEMP 36.9; O2SAT 95
[2024-01-17 05:23] LABS: Basophils % 0.4 %; Eosinophils # 0.2 10^3/uL (0.0-0.8); Hematocrit 41.8 % (37-53); Lymphocytes # 1.6 10^3/uL (0.8-4.8); Lymphocytes % 21.4 %; Mean Corpuscular HGB Conc 32.3 g/dL (30-55); Mean Corpuscular Hemoglobin 27.4 pg (27-33); Mean Corpuscular Volume 84.8 fl (82-101); Mean Platelet Volume 9.8 fL (7.4-10.4); Monocytes # 0.8 10^3/uL (0.2-0.9); Monocytes % 10.2 %; Neutrophils # 4.84 10^3/uL (1.8-7.7); Neutrophils % 65.6 %; Nucleated Red Blood Cells % 0 %; Platelet Count 188 10^3/cmm (157-399); Red Blood Count 4.93 10^6/uL (3.85-5.65); Red Cell Distribution Width 13.1 % (12.1-15.1); White Blood Count 7.38 10^3/uL (3.29-11.43)
[2024-01-17 05:45] LABS: Anion Gap 15.1 (5-19); Blood Urea Nitrogen 9 mg/dL (8-23); Calcium 8.7 mg/dL (8.5-10.5); Carbon Dioxide 27 mmol/L (22-29); Chloride 99 mmol/L (98-107); Creatinine Clr Calc Pharmacy 171.4222; Glomerular Filtration Rate 137.4 mL/min (90-130); Glucose 139 mg/dL (65-115); Osmolality Calculated 285 mOsm/kg (285-295); Potassium 4.1 mmol/L (3.5-5.1); Sodium 137 mmol/L (136-145)
--- NOTE | 2024-01-17 07:40 | PM.DCS ---
Discharge Providers Date of Admission: 01/16/2024 Date of Discharge: January 17, 2024 Attending Provider at Admission: Jian Floyd MD Attending Provider at Discharge: Jian Floyd M.D Primary Care Provider: Juma Gupta DO Reason for Visit Reason for Visit: R94.39, I20.0 Brief History: 58-year-old man with past medical history of pulmonary embolism, CAD with prior stent has been having on and off chest pain. Stress test showed tesfaye-infarct ischemia in LAD and left circumflex artery territory. Plan for coronary angiogram with possible PCI. Hospital Course Hospital Course Coronary angiogram showed critical proximal to mid LAD stenosis. He underwent successful revascularization with 1 stent. He was discharged home in a stable condition after overnight observation. Physical Exam Narrative: GENERAL: Patient is alert, awake and oriented x3. [] NECK: No jugular vein distension. [] HEENT: No cyanosis. No icterus. No pallor. [] HEART: Regular S1 and S2. No murmur, rub or gallop. [] LUNGS: Clear to auscultate bilaterally. [] CENTRAL NERVOUS SYSTEM: Grossly nonfocal. [] EXTREMITIES: Lower extremities with 1+ edema bilaterally. Discharge Data Studies Completed and Pending Pending at discharge Category Date Time Status DIESEL TRAILER MECHANIC request for service Routine Exams 01/16/24 06:09 Taken Laboratory Results WBC 7.38 10^3/uL (3.29-11.43) 01/17/24 04:19 RBC 4.93 10^6/uL (3.85-5.65) 01/17/24 04:19 Hgb 13.50 g/dL (11.27-16.99) 01/17/24 04:19 Hct 41.8 % (37-53) 01/17/24 04:19 MCV 84.8 fl (82-101) 01/17/24 04:19 MCH 27.4 pg (27-33) 01/17/24 04:19 MCHC 32.3 g/dL (30-55) 01/17/24 04:19 RDW 13.1 % (12.1-15.1) 01/17/24 04:19 Plt Count 188 10^3/cmm (157-399) 01/17/24 04:19 MPV 9.8 fL (7.4-10.4) 01/17/24 04:19 Neut % (Auto) 65.6 % 01/17/24 04:19 Lymph % (Auto) 21.4 % 01/17/24 04:19 Hand % (Auto) 10.2 % 01/17/24 04:19 Eos % (Auto) 2.0 % 01/17/24 04:19 Baso % (Auto) 0.4 % 01/17/24 04:19 Neut # (Auto) 4.84 10^3/uL (1.8-7.7) 01/17/24 04:19 Lymph # (Auto) 1.6 10^3/uL (0.8-4.8) 01/17/24 04:19 Hand # (Auto) 0.8 10^3/uL (0.2-0.9) 01/17/24 04:19 Eos # (Auto) 0.2 10^3/uL (0.0-0.8) 01/17/24 04:19 Baso # (Auto) 0.0 10^3/uL (0.0-0.1) 01/17/24 04:19 Nucleated RBC % (auto) 0 % 01/17/24 04:19 Nucleated RBCs # 0.0 /100WBC 01/17/24 04:19 Sodium 137 mmol/L (136-145) 01/17/24 04:19 Potassium 4.1 mmol/L (3.5-5.1) 01/17/24 04:19 Chloride 99 mmol/L (98-107) 01/17/24 04:19 Carbon Dioxide 27 mmol/L (22-29) 01/17/24 04:19 Anion Gap 15.1 (5-19) 01/17/24 04:19 BUN 9 mg/dL (8-23) 01/17/24 04:19 Creatinine 0.6 mg/dL (0.7-1.2) L 01/17/24 04:19 GFR Calculation 137.4 mL/min (90-130) H 01/17/24 04:19 Glucose 139 mg/dL (65-115) H 01/17/24 04:19 Calculated Osmolality 285 mOsm/kg (285-295) 01/17/24 04:19 Calcium 8.7 mg/dL (8.5-10.5) 01/17/24 04:19 Vitals Last Vital Signs Temp 98.4 F 01/17/24 04:01 Pulse 70 01/17/24 04:01 Resp 16 01/17/24 04:01 BP 144/84 01/17/24 04:01 Pulse Ox 95 01/17/24 04:01 O2 Del Method Room Air 01/17/24 04:01 Discharge Plan Discharge Patient Disposition: Home Prescriptions: New clopidogrel 75 mg Tablet 75 mg PO DAILY Qty: 90 3RF Continued atorvastatin 20 mg tablet 20 mg PO DAILY Xarelto 20 mg tablet 20 mg PO DAILY Rx Instructions: must administer with evening meal furosemide [Lasix] 20 mg tablet 20 mg PO DAILY PRN (Reason: Edema) nitroglycerin [Nitrostat] 0.4 mg tablet, sublingual 0.4 mg SUBLINGUAL Q5M PRN (Reason: Chest Pain) Qty: 25 3RF Discontinued sildenafil 25 mg Tablet 25 - 50 mg PO PRN PRN (Reason: Erectile Dysfunction) Discharge Orders: Discharge Order (Routine); Ordered 01/17/24 Ordered By: Jian Floyd Referrals: Linsey Hamilton FNP [Nurse Practitioner] - 02/03/24 2:30 pm Juma Gupta DO [Primary Care Provider] - 01/23/24 9:30 am Diet: Cardiac Activity: Increase activity as tolerated Patient Instructions: Clopidogrel (By mouth) (Plavix), Heart Failure (DC), Coronary Angioplasty (DC), CHF Stoplight, Post Angiogram Home Care Instructions Discharge Date/Time: 01/17/24 09:00 Discharge Attestations Time Spent in Discharge Care*: less than 30 min Quality Metrics Clinical Quality Measures [ No reported AMI, CVA or VTE this stay] Coding Level of Care Code Acute Code for Chg Nilsa
[2024-01-17 07:58] VITALS: BP 132/76; PULSE 75; RESP 24; TEMP 37.3; O2SAT 94
[2024-01-17] MEDS: aspirin 81 mg EC Tablet PO (08:40)
[2024-01-17] MEDS: atorvastatin 40 mg Tablet PO (08:40)
[2024-01-17] MEDS: clopidogrel 75 mg Tablet PO (08:40)
--- NOTE | 2024-01-17 09:42 | PC.NURSE ---
Discharge Note Patient discharged to [home] via [ambulation to POV] accompanied by [his daughter]. Discharge instructions reviewed with patient and/or patient account representative. Mobile pharmacy medications and/or prescriptions provided.
== END 2024-01-17 09:00 | disposition home or self-care (01) ==
LOC: CCL 05:46 → CSU 09:22
PROVIDERS: PCP Electrodiagnostic Medicine; Visit Provider Internal Medicine
DX: I25.110 Atherosclerotic heart disease of native coronary artery with unstable angina pectoris (principal); Z86.711 Personal history of pulmonary embolism; Z95.5 Presence of coronary angioplasty implant and graft; E78.2 Mixed hyperlipidemia; I25.2 Old myocardial infarction; E66.9 Obesity, unspecified; Z68.41 Body mass index [BMI] 40.0-44.9, adult; Z79.01 Long term (current) use of anticoagulants; Z86.718 Personal history of other venous thrombosis and embolism; I11.0 Hypertensive heart disease with heart failure; I50.9 Heart failure, unspecified; F17.210 Nicotine dependence, cigarettes, uncomplicated
CPT/HCPCS: 36415; 80048; 85025; 85347; 93005; 93454; 96365; 96372; 96375; 99152; 99153; C1725; C1769; C1874; C1887; C1894; C9600; J1644; J1650; J2250; J3010; J3490; J7030; Q0163; Q9967

== ENCOUNTER 2024-01-27 11:42 | Emergency (ER) | payer MEDICAID, SELFPAY ==
--- NOTE | 2024-01-27 11:47 | ECG_ITS ---
[facility] Test Date: 2024-01-27 Pat Name: Fransico Osborn Department: Room: Gender: Male Titrator: : 1965 Requested By: Leon Ibrahim Order Number: [id number] Michelle MD: Jian Floyd M.D. Measurements Intervals [place] Rate: 72 P: 46 MI: 165 QRS: 9 QRSD: 98 T: 65 QT: 388 QTc: 427 Interpretive Statements SINUS RHYTHM POSSIBLE ANTERIOR MYOCARDIAL INFARCTION , OF INDETERMINATE AGE [30 ms Q WAVE IN V3/V4, OR R < 0.2 mV IN V4] Compared to ECG 01/16/2024 10:36:37 No significant changes Electronically Signed On 01-27-2024 12:20:55 CDT by Jian Floyd M.D. [email or web address]/store/NU/[id number] f
--- NOTE | 2024-01-27 11:52 | XRR_ITS ---
PROCEDURE INFORMATION: Exam: XR Chest Exam date and time: 01/27/2024 12:12 PM Age: 58 years old Clinical indication: Angina; Additional info: Cp TECHNIQUE: Imaging protocol: Radiologic exam of the chest. Views: 1 view. COMPARISON: CR XR chest 1V portable [id number] 10/29/2023 6:49 PM FINDINGS: Lungs: Unremarkable. No consolidation. Pleural spaces: Unremarkable. No pleural effusion. No pneumothorax. Heart/Mediastinum: Unremarkable. No cardiomegaly. Bones/joints: Unremarkable. XR/XR chest 1V portable [id number] IMPRESSION: No acute findings.
[2024-01-27 11:57] VITALS: BP 138/79; PULSE 75; TEMP 36.8; O2SAT 94; BMI 43.8
--- NOTE | 2024-01-27 12:08 | ED_ITS ---
HPI - Chest Pain 2 General: Chief Complaint: Chest Pain Stated Complaint: chest pain, heart fluttering, stints 1 week ago Time Seen by Provider: 01/27/24 11:58 Source: patient Mode of arrival: ambulatory Limitations: no limitations History of Present Illness: 58-year-old male has extensive cardiac h istory and had stents placed here 1 week ago. He states he had 1 stent placed he states that over the last 2 days he is had a fluttering feeling in his chest with some very mild pains. He denies any pain currently. He denies any worsening improving factors she denies any nausea. Associated symptoms: Deny abdominal pain, dyspnea, fever(s), nausea or vomiting Review of Systems 2 Const: Denies: fever(s), chills, body aches or change in appetite ENMT: Denies: throat pain or dental pain Card: Reports: chest pain Resp: Denies: dyspnea GI: Denies: abdominal pain, nausea, vomiting or diarrhea Musc: Denies: neck pain or back pain Skin/Breast: Denies: rash Neuro: Denies: headache(s) PFSH ED 2 PFSH: Medical History Diverticulosis History of colon polyps Pulmonary embolism Viral syndrome Fever Obesity Pulmonary emboli Penetrating head injury History of left heart catheterization CAD (coronary artery disease) HTN (hypertension) Hiatal hernia Angina pectoris Myocardial infarction CHF (congestive heart failure) Surgical History S/P neurological surgery History of heart artery stent Family History Father Heart disease Alzheimer's dementia Social History Smoking and tobacco/nicotine status: current every day tobacco/nicotine user cigarettes Packs smoked per day: 1 Years cigarettes smoked: 45 Quit status (tobacco/nicotine): has tried quititng Alcohol intake: current Alcohol intake frequency: holidays/special occasions only Substance/Drug Use: never Lives independently: Yes Household members: significant other Marital status: Life Partner Current occupational status: employed Do you think of yourself as: Straight/Heterosexual Current gender identity: Male Physical Exam 2 Const: COMMON NORMALS: no acute distress, patient oriented x3 and healthy appearing HENMT: COMMON NORMALS: normocephalic and atraumatic HEAD & SCALP: n ormocephalic and atraumatic Neck/C-Spine: COMMON NORMALS: full ROM and supple Chest: COMMONS NORMALS: normal inspection of the chest and normal palpation of entire chest wall Resp: COMMON NORMALS: normal respiratory effort, No retractions, No use of accessory muscles and clear to auscultation bilaterally AUSCULTATION: clear to auscultation bilaterally Cardio: COMMON NORMALS: regular rate, regular rhythm and No murmurs present (Cardio) RATE: regular rate RHYTHM: regular rhythm Extremity: COMMON NORMALS: normal to inspection and full ROM Neuro: COMMON NORMALS: patient oriented x3, moves all extremities and no focal motor deficits Psych: COMMON NORMALS: mental status grossly normal, Normal thought process present and cooperative THOUGHT PROCESS: Normal thought process present Skin: COMMON NORMALS: no rashes or lesions noted and no wounds GENERAL SKIN EXAM: no rashes or lesions noted Course 2 Vital Signs: Vital signs: Vital Signs Temperature 98.2 F 01/27/24 11:57 Pulse Rate 81 01/27/24 15:20 Respiratory Rate 18 01/27/24 14:06 Blood Pressure 135/78 01/27/24 15:20 Pulse Oximetry 99 01/27/24 15:20 Oxygen Delivery Me thod Room Air 01/27/24 14:06 MDM - Chest Pain Medical Decision Making Patient presents for chest pains atypical in nature his troponins here are negative no signs of ACS he is to follow-up with his adult neurologist return if worsening he understands agrees to plan. Medical Records I reviewed the patient's medical records. Lab Data I reviewed the patient's lab results. 01/27/24 12:08 01/27/24 12:08 Radiology Impressions Chest X-Ray 01/27/24 11:52 IMPRESSION: No acute findings. Laboratory Results WBC 7.17 10^3/uL (3.29-11.43) 01/27/24 12:08 RBC 5.25 10^6/uL (3.85-5.65) 01/27/24 12:08 Hgb 14.50 g/dL (11.27-16.99) 01/27/24 12:08 Hct 43.9 % (37-53) 01/27/24 12:08 MCV 83.6 fl (82-101) 01/27/24 12:08 MCH 27.6 pg (27-33) 01/27/24 12:08 MCHC 33.0 g/dL (30-55) 01/27/24 12:08 RDW 13.0 % (12.1-15.1) 01/27/24 12:08 Plt Count 217 10^3/cmm (157-399) 01/27/24 12:08 MPV 9.6 fL (7.4-10.4) 01/27/24 12:08 Neut % (Auto) 62.7 % 01/27/24 12:08 Lymph % (Auto) 25.2 % 01/27/24 12:08 [place] % (Auto) 9.3 % 01/27/24 12:08 Eos % (Auto) 1.7 % 01/27/24 12:08 Baso % (Auto) 0.4 % 01/27/24 12:08 Neut # (Auto) 4.49 10^3/uL (1.8-7.7) 01/27/24 12:08 Lymph # (Auto) 1.8 10^3/uL (0.8-4.8) 01/27/24 12:08 [place] # (Auto) 0.7 10^3/uL (0.2-0.9) 01/27/24 12:08 Eos # (Auto) 0.1 10^3/uL (0.0-0.8) 01/27/24 12:08 Baso # (Auto) 0.0 10^3/uL (0.0-0.1) 01/27/24 12:08 Nucleated RBC % (auto) 0 % 01/27/24 12:08 Nucleated RBCs # 0.0 /100WBC 01/27/24 12:08 PT 13.40 SECONDS (12.1-14.9) 01/27/24 12:08 INR 0.99 (0.8-1.2) 01/27/24 12:08 Sodium 137 mmol/L (136-145) 01/27/24 12:08 Potassium 4.0 mmol/L (3.5-5.1) 01/27/24 12:08 Chloride 101 mmol/L (98-107) 01/27/24 12:08 Carbon Dioxide 24 mmol/L (22-29) 01/27/24 12:08 Anion Gap 16.0 (5-19) 01/27/24 12:08 BUN 14 mg/dL (8-23) 01/27/24 12:08 Creatinine 0.7 mg/dL (0.7-1.2) 01/27/24 12:08 GFR Calculation 115.0 mL/min (90-130) 01/27/24 12:08 Glucose 132 mg/dL (65-115) H 01/27/24 12:08 Calculated Osmolality 286 mOsm/kg (285-295) 01/27/24 12:08 Calcium 9.2 mg/dL (8.5-10.5) 01/27/24 12:08 Total Bilirubin 0.3 mg/dL (0.15-1.2) 01/27/24 12:08 AST 17 U/L (0-40) 01/27/24 12:08 ALT 31 U/L (0-41) 01/27/24 12:08 Alkaline Phosphatase 72 U/L (40-130) 01/27/24 12:08 Troponin T Baseline 9 ng/L (0-15) 01/27/24 12:08 Troponin T 120 Minute 7.57 ng/L (0-15) 01/27/24 14:13 Delta Troponin T -1.43 ABS# (0-10) L 01/27/24 14:13 Total Protein 7.1 g/dL (6.6-8.7) 01/27/24 12:08 Albumin 4.3 g/dL (3.5-5.2) 01/27/24 12:08 Globulin 2.8 g/dL (1.3-4.6) 01/27/24 12:08 All radiology interpretation(s) finalized by discharge EKG Data EKG 1: I personally reviewed and interpreted this EKG as follows: EKG interpretation date: 01/27/24 EKG interpretation time: 11:47 Interpretation: nsr hr [address] or t wave abnormalities qrs 98 qtc 413 EKG 2: I personally reviewed and interpreted this EKG as follows: EKG interpretation date: 01/27/24 EKG interpretation time: 13:42 Interpretation: nsr hr [address] or t wave abnormalities qrs 96 qtc 422 Discharge Plan Discharge Patient Disposition: Home Clinical Impression: Chest pain Qualifiers: Chest pain type: unspecified Qualified Code(s): R07.9 - Chest pain, unspecified Condition: Stable Prescriptions: No Action Xarelto 20 mg tablet 20 mg PO QPM Rx Instructions: must administer with evening meal furosemide [Lasix] 20 mg tablet 20 mg PO DAILY PRN (Reason: Edema) nitroglycerin [Nitrostat] 0.4 mg tablet, sublingual 0.4 mg SUBLINGUAL Q5M PRN (Reason: Chest Pain) Qty: 25 3RF atorvastatin 40 mg tablet 40 mg PO QPM potassium chloride 10 mEq Capsule, Extended Release 10 meq PO DAILY metoprolol succinate 25 mg tablet extended release 24 hr 25 mg PO QPM clopidogrel 75 mg tablet 75 mg PO QPM Discharge Orders: Discharge ED (Routine); Ordered 01/27/24 Ordered By: Leon Ibrahim Referrals: Jian Floyd M.D [Physician] - 1-3 days Juma Gupta DO [Primary Care Provider] - Discharge Diet: Advance as tolerated Discharge Activity: Resume usual activity Patient Instructions: Chest Pain (ED) Coding Level of Care Code ED Bridge Expert for Effie Ash
[2024-01-27 12:11] VITALS: BP 148/74; PULSE 76; RESP 18; O2SAT 95
[2024-01-27 12:15] LABS: Basophils % 0.4 %; Eosinophils # 0.1 10^3/uL (0.0-0.8); Eosinophils % 1.7 %; Hematocrit 43.9 % (37-53); Lymphocytes # 1.8 10^3/uL (0.8-4.8); Lymphocytes % 25.2 %; Mean Corpuscular Hemoglobin 27.6 pg (27-33); Mean Corpuscular Volume 83.6 fl (82-101); Mean Platelet Volume 9.6 fL (7.4-10.4); Monocytes # 0.7 10^3/uL (0.2-0.9); Monocytes % 9.3 %; Neutrophils # 4.49 10^3/uL (1.8-7.7); Neutrophils % 62.7 %; Nucleated Red Blood Cells % 0 %; Platelet Count 217 10^3/cmm (157-399); Red Blood Count 5.25 10^6/uL (3.85-5.65); White Blood Count 7.17 10^3/uL (3.29-11.43)
[2024-01-27 12:33] LABS: INR 0.99 (0.8-1.2)
[2024-01-27 12:35] LABS: Troponin(5th) Baseline 9 ng/L (0-15)
[2024-01-27 12:41] LABS: Alanine Aminotransferase 31 U/L (0-41); Albumin Level 4.3 g/dL (3.5-5.2); Alkaline Phosphatase 72 U/L (40-130); Aspartate Amino Transferase 17 U/L (0-40); Blood Urea Nitrogen 14 mg/dL (8-23); Calcium 9.2 mg/dL (8.5-10.5); Carbon Dioxide 24 mmol/L (22-29); Creatinine Clr Calc Pharmacy 143.5911; Globulin 2.8 g/dL (1.3-4.6); Total Bilirubin 0.3 mg/dL (0.15-1.2); Total Protein 7.1 g/dL (6.6-8.7)
[2024-01-27 13:01] LABS: Glucose 132 mg/dL (65-115)
[2024-01-27 13:12] VITALS: BP 130/77; PULSE 71; RESP 20; O2SAT 94
[2024-01-27 13:20] LABS: Chloride 101 mmol/L (98-107); Osmolality Calculated 286 mOsm/kg (285-295); Sodium 137 mmol/L (136-145)
[2024-01-27 13:33] VITALS: BP 145/70; PULSE 68; RESP 18; O2SAT 94
--- NOTE | 2024-01-27 13:42 | ECG_ITS ---
[facility] Test Date: 2024-01-27 Pat Name: Fransico Osborn Department: Room: Gender: Male Cell Biologist: : 1965 Requested By: Leon Ibrahim Order Number: [id number] Michelle MD: Jian Floyd M.D. Measurements Intervals [place] Rate: 61 P: 45 IA: 174 QRS: 34 QRSD: 96 T: 62 QT: 419 QTc: 423 Interpretive Statements SINUS RHYTHM Compared to ECG 01/27/2024 11:47:53 Myocardial infarct finding no longer present Electronically Signed On 01-27-2024 21:54:17 CDT by Jian Floyd M.D. [id number]
[2024-01-27 14:06] VITALS: BP 130/64; PULSE 60; RESP 18; O2SAT 95
[2024-01-27 14:46] LABS: Troponin 5 2HR 7.57 ng/L (0-15)
[2024-01-27 14:47] LABS: Troponin 5 2HR Delta -1.43 ABS# (0-10)
[2024-01-27 15:20] VITALS: BP 135/78; PULSE 81; O2SAT 99
== END 2024-01-27 15:21 | disposition home or self-care (01) ==
PROVIDERS: Emergency Provider Emergency Medicine; PCP Electrodiagnostic Medicine
DX: R07.9 Chest pain, unspecified (principal); Z79.02 Long term (current) use of antithrombotics/antiplatelets; F17.210 Nicotine dependence, cigarettes, uncomplicated; I25.10 Atherosclerotic heart disease of native coronary artery without angina pectoris; I25.2 Old myocardial infarction; I11.0 Hypertensive heart disease with heart failure; I50.9 Heart failure, unspecified
CPT/HCPCS: 71045; 80053; 84484; 85025; 85610; 93005; 99285

== ENCOUNTER → 2024-04-09 09:43 | Outpatient (BNVA) | payer MEDICAID, MEDICARE, SELFPAY | PROVIDERS: PCP Electrodiagnostic Medicine; Visit Provider Internal Medicine | DX: I25.119 Atherosclerotic heart disease of native coronary artery with unspecified angina pectoris (principal); E78.2 Mixed hyperlipidemia; F17.210 Nicotine dependence, cigarettes, uncomplicated; I11.0 Hypertensive heart disease with heart failure; I50.9 Heart failure, unspecified | CPT/HCPCS: 99214 ==

== ENCOUNTER 2024-04-29 14:17 | Outpatient (CLI) | payer MEDICARE, MEDICAID, SELFPAY | END 2024-04-29 14:18 | disposition home or self-care (01) | LOC: RAD 14:18 | PROVIDERS: PCP Electrodiagnostic Medicine; Visit Provider Internal Medicine | DX: R06.02 Shortness of breath (principal); R07.9 Chest pain, unspecified | CPT/HCPCS: 93306 ==

== ENCOUNTER 2024-07-10 06:00 | Outpatient (CLI) | payer MEDICARE, OTHER, SELFPAY ==
--- NOTE | 2024-07-10 | XR_ITS ---
WS: [id number] XR chest 2V* [id number] REASON FOR EXAM: DYSPNEA FINDINGS: Chest is unchanged compared to 01/27/2024. The heart and the mediastinum are within normal limits. Calcified granulomas disease in both hemithor aces. No acute pulmonary parenchymal or pleural abnormality. Mild degenerative spondylosis in the mid and lower thoracic spine. XR/XR chest 2V* [id number] IMPRESSION: Stable chest without acute or subacute abnormality.
== END 2024-07-10 06:01 | disposition home or self-care (01) ==
LOC: RADOUTREAD 07-13 06:19
PROVIDERS: PCP Electrodiagnostic Medicine; Visit Provider Nurse Practitioner Family
DX: R06.00 Dyspnea, unspecified (principal)

== ENCOUNTER → 2024-10-21 15:12 | Outpatient (BNVA) | payer MEDICARE, OTHER, MEDICAID, SELFPAY | PROVIDERS: PCP Electrodiagnostic Medicine; Visit Provider Internal Medicine | DX: I25.119 Atherosclerotic heart disease of native coronary artery with unspecified angina pectoris (principal); E78.2 Mixed hyperlipidemia; F17.210 Nicotine dependence, cigarettes, uncomplicated; I11.0 Hypertensive heart disease with heart failure; I50.9 Heart failure, unspecified; Z79.01 Long term (current) use of anticoagulants | CPT/HCPCS: 99214 ==

== ENCOUNTER 2024-11-20 17:46 | Emergency (ER) | payer MEDICARE, OTHER, SELFPAY ==
[2024-11-20 17:59] VITALS: BP 131/77; PULSE 74; RESP 15; TEMP 36.6; O2SAT 96; BMI 37.9
[2024-11-20 18:01] LABS: Glucose Point of Care 275 mg/dL (70-110)
== END 2024-11-20 18:42 | disposition left against medical advice (07) ==
LOC: ER 17:48
PROVIDERS: Emergency Provider Family Medicine; PCP Electrodiagnostic Medicine
DX: Z53.21 Procedure and treatment not carried out due to patient leaving prior to being seen by health care provider (principal)
CPT/HCPCS: 36416; 82962

== ENCOUNTER 2024-12-05 12:12 | Emergency (ER) | payer MEDICARE, SELFPAY ==
[2024-12-05 12:28] VITALS: BP 125/73; PULSE 87; RESP 22; TEMP 36.8; O2SAT 95; BMI 23.3
--- NOTE | 2024-12-05 12:35 | ECG_ITS ---
[facility] Date: 2024-12-05 Pat Name: Fransico Osborn Department: Room: Gender: Male Food Analyst: : 1965 Requested By: Kiley Hanna Order Number: [id number] Reading MD: Measurements Intervals [place] Rate: 82 P: 38 FL: 160 QRS: 14 QRSD: 93 T: 57 QT: 376 QTc: 440 Interpretive Statements SINUS RHYTHM LOW QRS VOLTAGE IN PRECORDIAL LEADS [QRS DEFLECTION < 1.0 mV IN CHEST LEADS] No previous ECG available for comparison [id number] f
--- NOTE | 2024-12-07 14:35 | PC.NURSE ---
Call to pt after LWBS Saturday. Pt states he thinks it was just a sinus infection. He states he is doing better. This nurse suggested follow up with his PCP since he is on blood thinners and he verbalized understanding.
== END 2024-12-05 13:59 | disposition left against medical advice (07) ==
PROVIDERS: Emergency Provider Family Medicine; PCP Electrodiagnostic Medicine
DX: Z53.21 Procedure and treatment not carried out due to patient leaving prior to being seen by health care provider (principal)
CPT/HCPCS: 93005

== ENCOUNTER → 2025-04-27 12:58 | Outpatient (BNVA) | payer MEDICARE, SELFPAY | PROVIDERS: PCP Electrodiagnostic Medicine; Visit Provider Nurse Practitioner Family | DX: I25.119 Atherosclerotic heart disease of native coronary artery with unspecified angina pectoris (principal); E78.2 Mixed hyperlipidemia; F17.210 Nicotine dependence, cigarettes, uncomplicated; I11.0 Hypertensive heart disease with heart failure; I50.9 Heart failure, unspecified; I25.2 Old myocardial infarction; Z86.711 Personal history of pulmonary embolism; Z79.01 Long term (current) use of anticoagulants | CPT/HCPCS: 99213 ==

== ENCOUNTER → 2025-10-25 13:35 | Outpatient (BNVA) | payer MEDICARE, SELFPAY | PROVIDERS: PCP Electrodiagnostic Medicine; Visit Provider Internal Medicine | DX: I25.10 Atherosclerotic heart disease of native coronary artery without angina pectoris (principal); R07.9 Chest pain, unspecified; E78.5 Hyperlipidemia, unspecified; I10 Essential (primary) hypertension; Z95.5 Presence of coronary angioplasty implant and graft; F17.210 Nicotine dependence, cigarettes, uncomplicated; Z79.01 Long term (current) use of anticoagulants; Z86.711 Personal history of pulmonary embolism; I25.2 Old myocardial infarction | CPT/HCPCS: 99214 ==